=== PATIENT | male | born 1950 | race Caucasian/White ===

== ENCOUNTER 2019-01-19 17:45 | Inpatient (IN) | payer MEDICARE, OTHER ==
[~2019-01-19] VITALS: Ht 180.3 cm; Wt 82.2 kg
[~2019-01-19 17:45] MED LIST: ACET-2119 PO; ASPI-611 PO; ATOR40TA7 PO; BISA10SU11 RC; CHLO473M3 PO; DIPH25CA83 PO; DOCU-148 PO; DONE5TAB7 PO; EPOE20005 SQ; FINA5TAB11 PO; FLUT16SP2 BOTHNARES; FOLI1TAB16 PO; LACTC PO; LEVO75TA PO; LIDO700A47 TP; MELA3TAB64 PO; MIDO5TAB4 PO; SITA50TA PO; SULF1TAB48 PO
[2019-01-19 18:51] LABS: BASOPHILS # (AUTO) 0.1 X10'3 (0-0.2); BASOPHILS % (AUTO) 0.7 % (0-1); EOSINOPHILS # (AUTO) 0.2 X10'3 (0-0.9); EOSINOPHILS % (AUTO) 1.7 % (0-6); HEMATOCRIT 26.6 % (42.0-52.0); HEMOGLOBIN 8.8 g/dl (14.0-17.9); LYMPHOCYTES # (AUTO) 0.6 X10'3 (1.1-4.8); LYMPHOCYTES % (AUTO) 4.2 % (21-51); MEAN CORPUSCULAR HEMOGLOBIN 28.5 PG (27.0-31.0); MEAN CORPUSCULAR HGB CONC 33.1 g/dL (33.0-36.5); MEAN CORPUSCULAR VOLUME 86.2 FL (78-98); MONOCYTES # (AUTO) 0.2 X10'3 (0-0.9); MONOCYTES % (AUTO) 1.3 % (2-12); NEUTROPHILS # (AUTO) 12.5 X10'3 (1.8-7.7); NEUTROPHILS % (AUTO) 92.1 % (42-75); RED BLOOD COUNT 3.09 X10'6 (4.70-6.10); RED CELL DISTRIBUTION WIDTH 22.6 % (11.5-14.5); WHITE BLOOD COUNT 13.6 X10'3 (4.5-11.0)
[2019-01-19 18:55] LABS: ALANINE AMINOTRANSFERASE 9 U/L (12-78); ALBUMIN 3.1 G/DL (3.4-5.0); ALKALINE PHOSPHATASE 62 IU/L (46-116); ANION GAP 6 (8-16); ASPARTATE AMINO TRANSFERASE 8 U/L (10-37); BILIRUBIN,TOTAL 1.1 MG/DL (0.1-1.0); BLOOD UREA NITROGEN 24 MG/DL (7-18); BUN/CREATININE RATIO 7.9 (5.4-32.0); CALCIUM 8.9 MG/DL (8.5-10.1); CHLORIDE 96 MMOL/L (99-107); CREATININE 3.02 MG/DL (0.60-1.10); GLUCOSE 141 MG/DL (70-104); POTASSIUM 3.6 MMOL/L (3.5-5.1); SODIUM 133 MMOL/L (135-145); TOTAL CARBON DIOXIDE 31.3 MMOL/L (24-32); TOTAL PROTEIN 6.2 G/DL (6.4-8.2); eGFR 21 ML/MIN
[2019-01-19 19:41] LABS: CLARITY,URINE CLOUDY (Clear); COLOR,URINE AMBER (Yellow)
[2019-01-19 19:46] LABS: UA COLLECTION TYPE STRAIGHT CATH
[2019-01-19 19:59] LABS: AMORPHOUS URATES 1+; BACTERIA,URINE FEW /HPF (Neg); RBC,URINE 0-2 /HPF (0-2); SQUAMOUS EPITHELIAL CELL,UR MODERATE /LPF (FEW); YEAST FEW /HPF (NEGATIVE)
[2019-01-19 20:24] LABS: MEAN PLATELET VOLUME 8.4 FL (7.4-10.4); PLATELET COUNT 87 X10'3 (140-440)
[2019-01-19 20:26] LABS: ANISOCYTOSIS 3+; NUCLEATED RED BLOOD CELLS 1 /100WBC (0-0); TOTAL CELLS COUNTED 100
[2019-01-19 20:27] LABS: ELLIPTOCYTES 1+; PLATELET ESTIMATE DECREASED; POLYCHROMASIA FEW; TOXIC GRANULATION 1+
[2019-01-19] MEDS ORDERED: vancomycin/NS 1 GM ADD-VANTAGE 250 ML IV SCH (21:00)
[2019-01-19] MEDS ORDERED: piperacillin/tazo 3.375gm/50ml 50 ML IV SCH (21:00)
[2019-01-19] MEDS ORDERED: VANCOmycin 1250MG/NS 250ml Bag 250 ML IV SCH (21:00)
--- NOTE | 2019-01-19 22:28 | NUR ---
Received patient report from ER nurse Yaima KENDRICK. Will assume patient care.
[2019-01-19 23:34] VITALS: BP 90/46
[2019-01-19] MEDS: piperacillin/tazo 3.375gm/50ml 50 ML IV SCH (23:50)
[2019-01-20] MEDS: SITAGLIPTIN PO SCH ×2 (00:13→08:00)
[2019-01-20] MEDS: midodrine 5mg tablet PO SCH ×4 (00:39→23:16)
--- NOTE | 2019-01-20 00:40 | NUR ---
Patient's son Regino and in to see patient.
--- NOTE | 2019-01-20 01:00 | NUR ---
2 RN skin check completed tonight. Patient noted to have an open coccyx pressure sore, Pictures taken in chart. Patient has a gallbladder drainage bag on his right abd draining dark brown bile. Dressing is CDI.
[2019-01-20 02:00] VITALS: BP 90/45
--- NOTE | 2019-01-20 02:00 | NUR ---
Alexys Wayne notified of patient's significant cardiac history. Orders to place patient on Tele.
[2019-01-20] MEDS ORDERED: Melatonin 3mg tablet PO ONE (02:05)
[2019-01-20] MEDS ORDERED: glucagon, human recombinant 1mg kit SUBCUT PRN ×2 (02:05→18:15)
[2019-01-20] MEDS ORDERED: MESSAGE TO PHARMACY PO ONE (02:05)
[2019-01-20] MEDS ORDERED: dextrose 50%-water 50ml dispensing syringe IV PRN ×4 (02:05→18:15)
[2019-01-20] MEDS ORDERED: dextrose ORAL solution 15 GM/59 ML bottle PO PRN ×4 (02:05→18:15)
[2019-01-20 05:59] LABS: BASOPHILS # (AUTO) 0.1 X10'3 (0-0.2); BASOPHILS % (AUTO) 0.6 % (0-1); EOSINOPHILS # (AUTO) 0.2 X10'3 (0-0.9); EOSINOPHILS % (AUTO) 1.4 % (0-6); HEMATOCRIT 23.5 % (42.0-52.0); HEMOGLOBIN 7.9 g/dl (14.0-17.9); LYMPHOCYTES # (AUTO) 0.5 X10'3 (1.1-4.8); LYMPHOCYTES % (AUTO) 4.5 % (21-51); MEAN CORPUSCULAR HEMOGLOBIN 29.5 PG (27.0-31.0); MEAN CORPUSCULAR HGB CONC 33.9 g/dL (33.0-36.5); MEAN CORPUSCULAR VOLUME 87.1 FL (78-98); MEAN PLATELET VOLUME 8.4 FL (7.4-10.4); MONOCYTES # (AUTO) 0.1 X10'3 (0-0.9); MONOCYTES % (AUTO) 1.1 % (2-12); NEUTROPHILS % (AUTO) 92.4 % (42-75); PLATELET COUNT 72 X10'3 (140-440); RED BLOOD COUNT 2.69 X10'6 (4.70-6.10); RED CELL DISTRIBUTION WIDTH 22.9 % (11.5-14.5); WHITE BLOOD COUNT 10.9 X10'3 (4.5-11.0)
[2019-01-20 06:21] LABS: ALANINE AMINOTRANSFERASE 7 U/L (12-78); ALBUMIN 2.9 G/DL (3.4-5.0); ALKALINE PHOSPHATASE 60 IU/L (46-116); ANION GAP 11 (8-16); ASPARTATE AMINO TRANSFERASE 7 U/L (10-37); BILIRUBIN,TOTAL 0.9 MG/DL (0.1-1.0); BLOOD UREA NITROGEN 31 MG/DL (7-18); BUN/CREATININE RATIO 8.6 (5.4-32.0); CALCIUM 8.2 MG/DL (8.5-10.1); CHLORIDE 96 MMOL/L (99-107); CREATININE 3.59 MG/DL (0.60-1.10); GLUCOSE 133 MG/DL (70-104); MAGNESIUM 1.9 MG/DL (1.5-2.4); PHOSPHORUS 3.7 MG/DL (2.3-4.5); POTASSIUM 3.8 MMOL/L (3.5-5.1); SODIUM 135 MMOL/L (135-145); TOTAL CARBON DIOXIDE 27.8 MMOL/L (24-32); TOTAL PROTEIN 5.7 G/DL (6.4-8.2); eGFR 17 ML/MIN
[2019-01-20 07:00] VITALS: BP 91/50
[2019-01-20 07:11] LABS: TOTAL CELLS COUNTED 100
[2019-01-20 07:12] LABS: ANISOCYTOSIS 3+; PLATELET ESTIMATE DECREASED; POLYCHROMASIA FEW
[2019-01-20] MEDS: docusate sod 100mg capsule PO SCH ×2 (07:28→21:07)
[2019-01-20] MEDS: finasteride 5mg tablet PO SCH (07:28)
[2019-01-20] MEDS: levoTHYROXINE 75mcg tablet PO SCH (07:28)
[2019-01-20] MEDS: lactobacillus rhamnosus 10,000 MMU CELLS/CAPSULE PO SCH ×2 (07:29→21:07)
[2019-01-20] MEDS: folic acid 1mg tablet PO SCH (07:29)
[2019-01-20] MEDS: fluticasone nasal spray 16GM bottle NS SCH (08:00)
[2019-01-20] MEDS: chlorhexidine gluconate 15ml Cup****oral rinse MM SCH ×2 (08:00→20:00)
[2019-01-20] MEDS: LIDOcaine 5% patch TP SCH (08:00)
[2019-01-20] MEDS: aspirin 81mg tab.chew PO SCH (08:26)
[2019-01-20 11:00] VITALS: BP 87/46
[2019-01-20] MEDS: piperacillin/tazo 3.375gm/50ml 50 ML IV SCH ×2 (11:00→23:16)
[2019-01-20] MEDS: NUT.TX.IMP.RENAL FXN,LAC-REDUC (Nepro) 237 ML VANILLA PO SCH ×2 (13:00→18:00)
--- NOTE | 2019-01-20 14:58 | NUR ---
Malnutrition consult: Pt admit w/ elevated WBC hx ESRD on HD, CHF, PPM, T2DM. Pt/son seen by GRIFFIN; son is caregiver and reports pt has been in hospital in months w/ ~65# wt loss from original admit. Current wt is pt stated and son reports pt did have large fluid volume which was taken off when first in the hospital months ago; exact wt loss unknown. Pt has visible signs of muscle wasting to triceps and legs as well as severe weakness, BLE +2 edema. At this time pt qualifies for severe malnutrition; pt is agreeable to Nepro TIDWM; MD notified. Pt agrees to 2 hard boiled eggs, oatmeal, applesauce, and LS gravy at breakfasts; dietary notified of preferences. OK to send these items given pt protein needs on HD. PO 50-75% first meal today per RN. LBM 01/18. Will continue to monitor. Rec: 1. continue carb controlled/renal diet 2. nepro TIDWM 3. honor pt food preferences 4. wt w/ HD Addendum: 01/20/19 at [address] Amended: Links added.
[2019-01-20 15:00] VITALS: BP 83/44
--- NOTE | 2019-01-20 15:04 | NUR ---
Zosyn medication unavailable to administer at 01/20/19 1100. Pharmacy was notified twice. Still not available.
--- NOTE | 2019-01-20 18:12 | NUR ---
Patient in room PCU 3023. I have received report from Lu KENDRICK and had the opportunity to ask questions and assume patient care. Patient sitting at bedside with , finished dinner, will continue to monitor.
--- NOTE | 2019-01-20 18:38 | NUR ---
Orientee documentation: I have reviewed and agree with all interventions, assessments performed and documented by Anne KENDRICK. Orientee Medication Administration: For this medication-pass time frame, all medication were reviewed, dispensed, administered and documented per hospital policy by Anne KENDRICK
[2019-01-20 19:00] VITALS: BP 102/51
[2019-01-20] MEDS: insulin Lispro (HumaLOG) vial - multi-dose SQ SCH (19:05)
[2019-01-20] MEDS: insulin glargine (Lantus) pen - multi-dose SQ SCH (20:41)
[2019-01-20] MEDS: VANCOmycin 1250MG/NS 250ml Bag 250 ML IV SCH (21:08)
[2019-01-20] MEDS: donepezil 5mg tablet PO SCH (21:08)
[2019-01-20] MEDS: atorvastatin 20mg tablet PO SCH (21:09)
[2019-01-20] MEDS: Melatonin 3mg tablet PO SCH (21:10)
[2019-01-20 23:00] VITALS: BP 92/51
[2019-01-21 03:00] VITALS: BP 91/51
[2019-01-21 05:01] LABS: BASOPHILS # (AUTO) 0.1 X10'3 (0-0.2); BASOPHILS % (AUTO) 0.6 % (0-1); EOSINOPHILS # (AUTO) 0.2 X10'3 (0-0.9); EOSINOPHILS % (AUTO) 1.5 % (0-6); HEMATOCRIT 23.7 % (42.0-52.0); HEMOGLOBIN 7.9 g/dl (14.0-17.9); LYMPHOCYTES # (AUTO) 0.7 X10'3 (1.1-4.8); LYMPHOCYTES % (AUTO) 5.5 % (21-51); MEAN CORPUSCULAR HEMOGLOBIN 29.5 PG (27.0-31.0); MEAN CORPUSCULAR HGB CONC 33.5 g/dL (33.0-36.5); MEAN CORPUSCULAR VOLUME 88.1 FL (78-98); MEAN PLATELET VOLUME 8.3 FL (7.4-10.4); MONOCYTES # (AUTO) 0.2 X10'3 (0-0.9); MONOCYTES % (AUTO) 1.4 % (2-12); PLATELET COUNT 76 X10'3 (140-440); RED BLOOD COUNT 2.69 X10'6 (4.70-6.10); RED CELL DISTRIBUTION WIDTH 23.2 % (11.5-14.5); WHITE BLOOD COUNT 13.2 X10'3 (4.5-11.0)
[2019-01-21 05:26] LABS: ALBUMIN 2.9 G/DL (3.4-5.0); ALKALINE PHOSPHATASE 58 IU/L (46-116); ANION GAP 10 (8-16); ASPARTATE AMINO TRANSFERASE 7 U/L (10-37); BLOOD UREA NITROGEN 44 MG/DL (7-18); BUN/CREATININE RATIO 9.5 (5.4-32.0); CALCIUM 8.2 MG/DL (8.5-10.1); CHLORIDE 95 MMOL/L (99-107); CREATININE 4.63 MG/DL (0.60-1.10); GLUCOSE 147 MG/DL (70-104); MAGNESIUM 1.8 MG/DL (1.5-2.4); PHOSPHORUS 4.8 MG/DL (2.3-4.5); POTASSIUM 4.2 MMOL/L (3.5-5.1); SODIUM 133 MMOL/L (135-145); TOTAL CARBON DIOXIDE 27.6 MMOL/L (24-32); TOTAL PROTEIN 5.7 G/DL (6.4-8.2); eGFR 13 ML/MIN
[2019-01-21 05:28] LABS: ALANINE AMINOTRANSFERASE < 6 U/L (12-78)
[2019-01-21 06:00] VITALS: BP 99/50
--- NOTE | 2019-01-21 06:19 | NUR ---
Problems reprioritized. Patient report given, questions answered & plan of care reviewed with Fish KENDRICK. Patient resting eyes closed respirations even on back.
--- NOTE | 2019-01-21 06:24 | NUR ---
Patient in room PCU 3023. I have received report from AROLDO Hallman and had the opportunity to ask questions and assume patient care.
[2019-01-21] MEDS: chlorhexidine gluconate 15ml Cup****oral rinse MM SCH ×2 (07:34→18:51)
[2019-01-21] MEDS: fluticasone nasal spray 16GM bottle NS SCH (07:34)
[2019-01-21] MEDS: NUT.TX.IMP.RENAL FXN,LAC-REDUC (Nepro) 237 ML VANILLA PO SCH ×3 (07:35→18:51)
[2019-01-21] MEDS: LIDOcaine 5% patch TP SCH (07:35)
[2019-01-21] MEDS: finasteride 5mg tablet PO SCH (07:36)
[2019-01-21] MEDS: docusate sod 100mg capsule PO SCH ×2 (07:36→18:46)
[2019-01-21] MEDS: levoTHYROXINE 75mcg tablet PO SCH (07:36)
[2019-01-21] MEDS: lactobacillus rhamnosus 10,000 MMU CELLS/CAPSULE PO SCH ×2 (07:36→18:46)
[2019-01-21] MEDS: midodrine 5mg tablet PO SCH ×3 (07:36→23:53)
[2019-01-21] MEDS: folic acid 1mg tablet PO SCH (07:36)
[2019-01-21] MEDS: aspirin 81mg tab.chew PO SCH (07:36)
[2019-01-21] MEDS: linagliptin 5mg tablet PO SCH (07:43)
[2019-01-21] MEDS ORDERED: normal saline 1000ml 250 ML IV PRN (08:00)
[2019-01-21] MEDS ORDERED: heparin 1,000 units/ml 10ml inj HE ONE ×2 (08:00)
[2019-01-21] MEDS ORDERED: epoetin 20,000 units/ml inj IV ONE (08:00)
[2019-01-21] MEDS ORDERED: heparin 1,000unit/ml 10ml vial 10 ML IV ONE (08:00)
[2019-01-21] MEDS: insulin Lispro (HumaLOG) vial - multi-dose SQ SCH ×2 (08:21→13:33)
[2019-01-21 09:05] LABS: TOTAL CELLS COUNTED 100
[2019-01-21 09:09] LABS: ANISOCYTOSIS 3+; PLATELET ESTIMATE DECREASED
[2019-01-21 09:11] LABS: ELLIPTOCYTES FEW; POLYCHROMASIA FEW; SCHISTOCYTES FEW
[2019-01-21 11:00] VITALS: BP 92/49
[2019-01-21] MEDS: piperacillin/tazo 3.375gm/50ml 50 ML IV SCH ×2 (11:59→23:55)
--- NOTE | 2019-01-21 14:34 | NUR ---
Wound consult RE "ESRD, non-healing wounds": Pt only skin tears documented in WOC note w/ sacral PU d/c per WOC. Pt does have bruising during RD visit and is receiving Nepro w/ protein food options already taken and being sent by dietary. PO 100% meals at this time meeting protein needs on HD. Will continue to monitor. Addendum: 01/21/19 at [address] Amended: Links added.
[2019-01-21 15:00] VITALS: BP 89/50
[2019-01-21] MEDS: midodrine tablet 2.5 MG TABLET PO PRN (16:15)
[2019-01-21] MEDS: epoetin 20,000 units/ml inj SQ SCH (16:35)
--- NOTE | 2019-01-21 18:19 | NUR ---
Problems reprioritized. Patient report given, questions answered & plan of care reviewed with AROLDO Lucero.
[2019-01-21] MEDS: acetaminophen 325mg tablet PO PRN (18:43)
[2019-01-21 19:00] VITALS: BP 97/53
[2019-01-21] MEDS: VANCOmycin 1250MG/NS 250ml Bag 250 ML IV SCH (21:16)
[2019-01-21] MEDS: Melatonin 3mg tablet PO SCH (21:16)
[2019-01-21] MEDS: donepezil 5mg tablet PO SCH (21:17)
[2019-01-21] MEDS: atorvastatin 20mg tablet PO SCH (21:17)
[2019-01-21] MEDS: insulin glargine (Lantus) pen - multi-dose SQ SCH (21:30)
[2019-01-22] VITALS (8 sets, daily range): BP systolic 81–117; BP diastolic 42–54
--- NOTE | 2019-01-22 06:10 | NUR ---
Patient in room PCU 3023. I have received report from AROLDO Lucero and had the opportunity to ask questions and assume patient care.
--- NOTE | 2019-01-22 06:12 | NUR ---
Problems reprioritized. Patient report given, questions answered & plan of care reviewed with Fish. Addendum: 01/22/19 at 12 by Jazmine Aj RN Amended: Links added.
[2019-01-22 06:14] LABS: BASOPHILS # (AUTO) 0.1 X10'3 (0-0.2); BASOPHILS % (AUTO) 0.7 % (0-1); EOSINOPHILS # (AUTO) 0.2 X10'3 (0-0.9); EOSINOPHILS % (AUTO) 1.8 % (0-6); HEMATOCRIT 22.3 % (42.0-52.0); HEMOGLOBIN 7.5 g/dl (14.0-17.9); LYMPHOCYTES # (AUTO) 0.6 X10'3 (1.1-4.8); LYMPHOCYTES % (AUTO) 5.5 % (21-51); MEAN CORPUSCULAR HEMOGLOBIN 29.2 PG (27.0-31.0); MEAN CORPUSCULAR HGB CONC 33.5 g/dL (33.0-36.5); MEAN CORPUSCULAR VOLUME 87.2 FL (78-98); MEAN PLATELET VOLUME 8.5 FL (7.4-10.4); MONOCYTES # (AUTO) 0.1 X10'3 (0-0.9); MONOCYTES % (AUTO) 1.3 % (2-12); NEUTROPHILS # (AUTO) 9.4 X10'3 (1.8-7.7); NEUTROPHILS % (AUTO) 90.7 % (42-75); PLATELET COUNT 76 X10'3 (140-440); RED BLOOD COUNT 2.56 X10'6 (4.70-6.10); RED CELL DISTRIBUTION WIDTH 23.5 % (11.5-14.5); WHITE BLOOD COUNT 10.4 X10'3 (4.5-11.0)
[2019-01-22 06:43] LABS: ALANINE AMINOTRANSFERASE 9 U/L (12-78); ALKALINE PHOSPHATASE 62 IU/L (46-116); ANION GAP 9 (8-16); ASPARTATE AMINO TRANSFERASE 11 U/L (10-37); BILIRUBIN,TOTAL 0.9 MG/DL (0.1-1.0); BLOOD UREA NITROGEN 32 MG/DL (7-18); BUN/CREATININE RATIO 9.2 (5.4-32.0); CALCIUM 8.3 MG/DL (8.5-10.1); CHLORIDE 98 MMOL/L (99-107); CREATININE 3.46 MG/DL (0.60-1.10); GLUCOSE 156 MG/DL (70-104); MAGNESIUM 1.9 MG/DL (1.5-2.4); PHOSPHORUS 3.7 MG/DL (2.3-4.5); POTASSIUM 4.2 MMOL/L (3.5-5.1); SODIUM 134 MMOL/L (135-145); TOTAL CARBON DIOXIDE 26.6 MMOL/L (24-32); TOTAL PROTEIN 5.9 G/DL (6.4-8.2); eGFR 18 ML/MIN
[2019-01-22] MEDS: chlorhexidine gluconate 15ml Cup****oral rinse MM SCH ×2 (07:04→19:38)
[2019-01-22] MEDS: fluticasone nasal spray 16GM bottle NS SCH (07:04)
[2019-01-22] MEDS: LIDOcaine 5% patch TP SCH (07:05)
[2019-01-22] MEDS: finasteride 5mg tablet PO SCH (07:07)
[2019-01-22] MEDS: levoTHYROXINE 75mcg tablet PO SCH (07:07)
[2019-01-22] MEDS: lactobacillus rhamnosus 10,000 MMU CELLS/CAPSULE PO SCH ×2 (07:07→19:33)
[2019-01-22] MEDS: midodrine 5mg tablet PO SCH ×3 (07:07→21:34)
[2019-01-22] MEDS: folic acid 1mg tablet PO SCH (07:07)
[2019-01-22] MEDS: docusate sod 100mg capsule PO SCH ×2 (07:07→19:33)
[2019-01-22] MEDS: linagliptin 5mg tablet PO SCH (07:07)
[2019-01-22] MEDS: NUT.TX.IMP.RENAL FXN,LAC-REDUC (Nepro) 237 ML VANILLA PO SCH ×3 (07:10→17:42)
[2019-01-22 07:30] LABS: ANISOCYTOSIS 3+; ELLIPTOCYTES 1+; NUCLEATED RED BLOOD CELLS 2 /100WBC (0-0); PLATELET ESTIMATE DECREASED; POLYCHROMASIA FEW; SCHISTOCYTES FEW; TOTAL CELLS COUNTED 100
[2019-01-22] MEDS: aspirin 81mg tab.chew PO SCH (08:20)
[2019-01-22] MEDS: bisacodyl 10mg suppository rectal RC PRN (08:21)
[2019-01-22] MEDS: insulin Lispro (HumaLOG) vial - multi-dose SQ SCH ×3 (08:34→19:31)
[2019-01-22] MEDS: epoetin 20,000 units/ml inj SQ SCH (10:00)
[2019-01-22] MEDS: piperacillin/tazo 3.375gm/50ml 50 ML IV SCH ×2 (11:03→22:29)
[2019-01-22] MEDS ORDERED: midodrine tablet 2.5 MG TABLET PO ONE (16:20)
[2019-01-22] MEDS ORDERED: lactulose 20gm/30ml cup PO ONE (17:35)
--- NOTE | 2019-01-22 18:22 | NUR ---
Problems reprioritized. Patient report given, questions answered & plan of care reviewed with AROLDO Pardo.
--- NOTE | 2019-01-22 18:24 | NUR ---
Patient in room U 3023. I have received report from AROLDO Whitten and had the opportunity to ask questions and assume patient care. Addendum: 01/22/19 at 1833 by Leanne Joseph RN Amended: Links added.
[2019-01-22] MEDS ORDERED: VANCOMYCIN LEVEL IV ONE (20:30)
--- NOTE | 2019-01-22 21:30 | NUR ---
Pt refuses st cath or baldder scan, denies need to urinate. states will notify nursing if needs. Addendum: 01/23/19 at 0024 by Leanne Joseph RN Amended: Links added.
[2019-01-22] MEDS: Melatonin 3mg tablet PO SCH (21:33)
[2019-01-22] MEDS: atorvastatin 20mg tablet PO SCH (21:34)
[2019-01-22] MEDS: donepezil 5mg tablet PO SCH (21:34)
[2019-01-22] MEDS: VANCOmycin 1250MG/NS 250ml Bag 250 ML IV SCH ×2 (21:35→22:29)
[2019-01-22] MEDS: acetaminophen 325mg tablet PO PRN (21:35)
[2019-01-22] MEDS: insulin glargine (Lantus) pen - multi-dose SQ SCH (22:27)
[2019-01-23] VITALS (9 sets, daily range): BP systolic 85–101; BP diastolic 44–55
--- NOTE | 2019-01-23 03:27 | NUR ---
no void no desire. pt states does not need to get blader scanned. states he knows if he needs to be cathed. declines to have bladder scanned. Addendum: 01/23/19 at 0328 by Leanne Joseph RN Amended: Links added.
[2019-01-23 05:34] LABS: ALANINE AMINOTRANSFERASE 7 U/L (12-78); ALKALINE PHOSPHATASE 58 IU/L (46-116); ANION GAP 12 (8-16); ASPARTATE AMINO TRANSFERASE 8 U/L (10-37); BILIRUBIN,TOTAL 0.9 MG/DL (0.1-1.0); BLOOD UREA NITROGEN 46 MG/DL (7-18); CALCIUM 8.7 MG/DL (8.5-10.1); CHLORIDE 94 MMOL/L (99-107); CREATININE 4.61 MG/DL (0.60-1.10); GLUCOSE 106 MG/DL (70-104); PHOSPHORUS 4.9 MG/DL (2.3-4.5); POTASSIUM 4.8 MMOL/L (3.5-5.1); SODIUM 133 MMOL/L (135-145); TOTAL CARBON DIOXIDE 26.7 MMOL/L (24-32); eGFR 13 ML/MIN
[2019-01-23 05:44] LABS: BASOPHILS # (AUTO) 0.1 X10'3 (0-0.2); BASOPHILS % (AUTO) 0.9 % (0-1); EOSINOPHILS # (AUTO) 0.2 X10'3 (0-0.9); EOSINOPHILS % (AUTO) 2.1 % (0-6); HEMATOCRIT 23.9 % (42.0-52.0); HEMOGLOBIN 7.9 g/dl (14.0-17.9); LYMPHOCYTES # (AUTO) 0.7 X10'3 (1.1-4.8); LYMPHOCYTES % (AUTO) 6.1 % (21-51); MEAN CORPUSCULAR HEMOGLOBIN 29.2 PG (27.0-31.0); MEAN CORPUSCULAR HGB CONC 33.1 g/dL (33.0-36.5); MEAN CORPUSCULAR VOLUME 88.4 FL (78-98); MEAN PLATELET VOLUME 8.4 FL (7.4-10.4); MONOCYTES # (AUTO) 0.2 X10'3 (0-0.9); MONOCYTES % (AUTO) 1.9 % (2-12); PLATELET COUNT 85 X10'3 (140-440); RED CELL DISTRIBUTION WIDTH 22.9 % (11.5-14.5); WHITE BLOOD COUNT 11.2 X10'3 (4.5-11.0)
--- NOTE | 2019-01-23 06:12 | NUR ---
Patient in room PCU 3023. I have received report from AROLDO Pardo and had the opportunity to ask questions and assume patient care.
--- NOTE | 2019-01-23 06:17 | NUR ---
Problems reprioritized. Patient report given, questions answered & plan of care reviewed with AROLDO Whitten. Addendum: 01/23/19 at 0617 by Leanne Joseph RN Amended: Links added.
[2019-01-23] MEDS: fluticasone nasal spray 16GM bottle NS SCH (07:04)
[2019-01-23] MEDS: chlorhexidine gluconate 15ml Cup****oral rinse MM SCH ×2 (07:04→20:00)
[2019-01-23] MEDS: NUT.TX.IMP.RENAL FXN,LAC-REDUC (Nepro) 237 ML VANILLA PO SCH ×3 (07:05→18:00)
[2019-01-23] MEDS: LIDOcaine 5% patch TP SCH (07:05)
[2019-01-23] MEDS: levoTHYROXINE 75mcg tablet PO SCH (07:33)
[2019-01-23] MEDS: aspirin 81mg tab.chew PO SCH (07:33)
[2019-01-23] MEDS: folic acid 1mg tablet PO SCH (07:33)
[2019-01-23] MEDS: finasteride 5mg tablet PO SCH (07:33)
[2019-01-23] MEDS: lactobacillus rhamnosus 10,000 MMU CELLS/CAPSULE PO SCH ×2 (07:33→20:22)
[2019-01-23] MEDS: linagliptin 5mg tablet PO SCH (07:33)
[2019-01-23] MEDS: midodrine 5mg tablet PO SCH ×3 (07:33→20:23)
[2019-01-23] MEDS: docusate sod 100mg capsule PO SCH ×2 (07:33→20:22)
[2019-01-23] MEDS ORDERED: normal saline 1000ml 250 ML IV PRN (08:00)
[2019-01-23] MEDS ORDERED: epoetin 20,000 units/ml inj IV ONE (08:00)
[2019-01-23] MEDS ORDERED: heparin 1,000unit/ml 10ml vial 10 ML IV ONE (08:00)
[2019-01-23] MEDS ORDERED: albumin (human) 25% 100ml IV 100 ML IV PRN (08:00)
[2019-01-23] MEDS ORDERED: heparin 1,000 units/ml 10ml inj HE ONE ×2 (08:00)
[2019-01-23] MEDS: insulin Lispro (HumaLOG) vial - multi-dose SQ SCH ×2 (08:10→18:43)
[2019-01-23 08:25] LABS: ANISOCYTOSIS 3+; ELLIPTOCYTES 1+; PLATELET ESTIMATE DECREASED; POLYCHROMASIA 1+
[2019-01-23 08:26] LABS: SCHISTOCYTES 1+
[2019-01-23] MEDS: midodrine tablet 2.5 MG TABLET PO PRN (09:31)
[2019-01-23] MEDS: piperacillin/tazo 3.375gm/50ml 50 ML IV SCH ×2 (14:10→23:17)
--- NOTE | 2019-01-23 15:32 | NUR ---
Reassessment: Pt PO 75-100% meals meeting needs on HD; receiving prior food preferences. LBM 01/22. RD provided pt written/verbal malnutrition ed w/ protein supplement recommendations for at home review. Will continue to monitor. Rec: 1. continue carb controlled/renal diet 2. nepro TIDWM 3. honor pt food preferences 4. wt w/ HD Addendum: 01/23/19 at [address] Amended: Links added.
--- NOTE | 2019-01-23 18:27 | NUR ---
Problems reprioritized. Patient report given, questions answered & plan of care reviewed with AROLDO Finley.
[2019-01-23] MEDS: donepezil 5mg tablet PO SCH (20:22)
[2019-01-23] MEDS: Melatonin 3mg tablet PO SCH (20:23)
[2019-01-23] MEDS: atorvastatin 20mg tablet PO SCH (20:23)
[2019-01-23] MEDS ORDERED: VANCOmycin 1250MG/NS 250ml Bag 250 ML IV SCH (21:00)
[2019-01-23] MEDS: insulin glargine (Lantus) pen - multi-dose SQ SCH (21:22)
[2019-01-24 03:00] VITALS: BP 90/50
[2019-01-24] MEDS: bisacodyl 10mg suppository rectal RC PRN (04:44)
[2019-01-24 05:49] LABS: BASOPHILS # (AUTO) 0.1 X10'3 (0-0.2); BASOPHILS % (AUTO) 0.8 % (0-1); EOSINOPHILS # (AUTO) 0.2 X10'3 (0-0.9); EOSINOPHILS % (AUTO) 2.2 % (0-6); HEMATOCRIT 27.1 % (42.0-52.0); HEMOGLOBIN 9.1 g/dl (14.0-17.9); LYMPHOCYTES # (AUTO) 0.7 X10'3 (1.1-4.8); LYMPHOCYTES % (AUTO) 6.3 % (21-51); MEAN CORPUSCULAR HEMOGLOBIN 29.6 PG (27.0-31.0); MEAN CORPUSCULAR HGB CONC 33.4 g/dL (33.0-36.5); MEAN CORPUSCULAR VOLUME 88.6 FL (78-98); MEAN PLATELET VOLUME 8.5 FL (7.4-10.4); MONOCYTES # (AUTO) 0.2 X10'3 (0-0.9); MONOCYTES % (AUTO) 2.1 % (2-12); NEUTROPHILS # (AUTO) 9.8 X10'3 (1.8-7.7); NEUTROPHILS % (AUTO) 88.6 % (42-75); PLATELET COUNT 87 X10'3 (140-440); RED BLOOD COUNT 3.06 X10'6 (4.70-6.10); RED CELL DISTRIBUTION WIDTH 22.6 % (11.5-14.5)
[2019-01-24 05:51] LABS: ALANINE AMINOTRANSFERASE 8 U/L (12-78); ALBUMIN 2.9 G/DL (3.4-5.0); ALKALINE PHOSPHATASE 68 IU/L (46-116); ANION GAP 13 (8-16); ASPARTATE AMINO TRANSFERASE 8 U/L (10-37); BILIRUBIN,TOTAL 0.8 MG/DL (0.1-1.0); BLOOD UREA NITROGEN 37 MG/DL (7-18); BUN/CREATININE RATIO 10.3 (5.4-32.0); CALCIUM 7.8 MG/DL (8.5-10.1); CHLORIDE 96 MMOL/L (99-107); CREATININE 3.59 MG/DL (0.60-1.10); GLUCOSE 154 MG/DL (70-104); PHOSPHORUS 4.1 MG/DL (2.3-4.5); POTASSIUM 3.8 MMOL/L (3.5-5.1); SODIUM 135 MMOL/L (135-145); TOTAL CARBON DIOXIDE 26.3 MMOL/L (24-32); TOTAL PROTEIN 5.9 G/DL (6.4-8.2); eGFR 17 ML/MIN
[2019-01-24 06:00] VITALS: BP 95/45
--- NOTE | 2019-01-24 06:00 | NUR ---
Patient in room PCU 3023. I have received report from Tushar KENDRICK and had the opportunity to ask questions and assume patient care.
[2019-01-24 07:21] LABS: ANISOCYTOSIS 3+; NUCLEATED RED BLOOD CELLS 1 /100WBC (0-0); PLATELET ESTIMATE DECREASED; TOTAL CELLS COUNTED 100
[2019-01-24 07:22] LABS: ELLIPTOCYTES 1+; POIKILOCYTOSIS 1+; POLYCHROMASIA 1+
[2019-01-24] MEDS: chlorhexidine gluconate 15ml Cup****oral rinse MM SCH ×2 (08:00→20:00)
[2019-01-24] MEDS: NUT.TX.IMP.RENAL FXN,LAC-REDUC (Nepro) 237 ML VANILLA PO SCH ×3 (08:00→18:00)
[2019-01-24] MEDS: LIDOcaine 5% patch TP SCH (08:00)
[2019-01-24] MEDS: fluticasone nasal spray 16GM bottle NS SCH (08:00)
--- NOTE | 2019-01-24 08:00 | NUR ---
patient declined daily weight
[2019-01-24] MEDS: insulin Lispro (HumaLOG) vial - multi-dose SQ SCH ×3 (08:17→20:00)
[2019-01-24] MEDS: levoTHYROXINE 75mcg tablet PO SCH (08:18)
[2019-01-24] MEDS: midodrine 5mg tablet PO SCH ×3 (08:18→21:31)
[2019-01-24] MEDS: linagliptin 5mg tablet PO SCH (08:19)
[2019-01-24] MEDS: folic acid 1mg tablet PO SCH (08:19)
[2019-01-24] MEDS: lactobacillus rhamnosus 10,000 MMU CELLS/CAPSULE PO SCH ×2 (08:19→19:52)
[2019-01-24] MEDS: docusate sod 100mg capsule PO SCH ×2 (08:19→19:55)
[2019-01-24] MEDS: finasteride 5mg tablet PO SCH (08:20)
[2019-01-24] MEDS: aspirin 81mg tab.chew PO SCH (08:20)
[2019-01-24 11:00] VITALS: BP 93/44
[2019-01-24] MEDS: piperacillin/tazo 3.375gm/50ml 50 ML IV SCH ×2 (12:20→22:33)
--- NOTE | 2019-01-24 14:49 | NUR ---
bladder scanned pt per primary RN request. 465ml when bladder scanned. AROLDO Siddiqui notified. pt is also requesting something for pain before straight cath and c/o "butt pain" AROLDO Siddiqui aware.
[2019-01-24] MEDS ORDERED: LIDOcaine 2% 10ml TOPICAL JELLY (Urojet) MM PRN (14:55)
[2019-01-24] MEDS ORDERED: morphine 2 MG/ML inj. syringe IV ONE (14:55)
[2019-01-24 15:00] VITALS: BP 90/47
--- NOTE | 2019-01-24 16:00 | NUR ---
1600-straight cath done due to 460ml showing on bladder scan. Pt denies discomfort and did not have bladder distention. Received 10ml dark brown urine and sent to lab at provider request. Left catheter in and attached to drainage bag to see if he could stand and urine would drain. No drainage output. Notified Frances Torres PA-C and received orders to flush and pull back with sterile water to flush bladder. Performed flush and pull back on syringe and received back only what was flushed in.Notified Frances Torres PA-C of results and she put order in for abdominal ultrasound. Catheter removed and the bladder was empty per ultrasound and original order was for straight cath only.
[2019-01-24 17:23] LABS: CLARITY,URINE TURBID (Clear); COLOR,URINE BROWN (Yellow); UA COLLECTION TYPE STRAIGHT CATH
[2019-01-24 17:34] LABS: BACTERIA,URINE FEW /HPF (Neg); MUCUS STRANDS NONE SEEN /LPF (Neg); SQUAMOUS EPITHELIAL CELL,UR FEW /LPF (FEW); TRANSITIONAL EPI CELLS,URINE FEW /HPF
[2019-01-24 17:35] LABS: AMORPHOUS URATES 2+; YEAST MANY /HPF (NEGATIVE)
--- NOTE | 2019-01-24 18:30 | NUR ---
Problems reprioritized. Patient report given, questions answered & plan of care reviewed with Lady KENDRICK.
[2019-01-24 19:00] VITALS: BP 99/50
--- NOTE | 2019-01-24 19:24 | NUR ---
Patient in room PCU 3023. I have received report from Chen KENDRICK and had the opportunity to ask questions and assume patient care. Checked on patient, he is resting, will continue to monitor.
[2019-01-24] MEDS: atorvastatin 20mg tablet PO SCH (21:31)
[2019-01-24] MEDS: Melatonin 3mg tablet PO SCH (21:32)
[2019-01-24] MEDS: donepezil 5mg tablet PO SCH (21:32)
[2019-01-24] MEDS: HYDROcodone/acetaminophen 5mg/325mg tablet PO PRN (21:35)
[2019-01-24] MEDS: insulin glargine (Lantus) pen - multi-dose SQ SCH (21:38)
[2019-01-24 23:00] VITALS: BP 99/53
[2019-01-25 03:00] VITALS: BP 102/50
[2019-01-25 06:00] VITALS: BP 104/52
--- NOTE | 2019-01-25 07:01 | NUR ---
Problems reprioritized. Patient report given, questions answered & plan of care reviewed with Brandin KENDRICK and Elaina KENDRICK.
--- NOTE | 2019-01-25 07:05 | NUR ---
Patient in room PCU 3023. I have received report from AROLDO HENDERSON and had the opportunity to ask questions and assume patient care.
[2019-01-25] MEDS: fluticasone nasal spray 16GM bottle NS SCH (08:00)
[2019-01-25] MEDS: chlorhexidine gluconate 15ml Cup****oral rinse MM SCH ×2 (08:00→20:00)
[2019-01-25] MEDS: LIDOcaine 5% patch TP SCH (08:00)
--- NOTE | 2019-01-25 08:00 | NUR ---
REFUSED DAILY WEIGHT.
[2019-01-25] MEDS: folic acid 1mg tablet PO SCH (08:23)
[2019-01-25] MEDS: docusate sod 100mg capsule PO SCH ×2 (08:23→21:25)
[2019-01-25] MEDS: lactobacillus rhamnosus 10,000 MMU CELLS/CAPSULE PO SCH ×2 (08:23→21:26)
[2019-01-25] MEDS: NUT.TX.IMP.RENAL FXN,LAC-REDUC (Nepro) 237 ML VANILLA PO SCH ×3 (08:24→18:49)
[2019-01-25] MEDS: midodrine 5mg tablet PO SCH ×3 (08:24→21:25)
[2019-01-25] MEDS: levoTHYROXINE 75mcg tablet PO SCH (08:25)
[2019-01-25] MEDS: finasteride 5mg tablet PO SCH (08:25)
[2019-01-25] MEDS: linagliptin 5mg tablet PO SCH (08:25)
[2019-01-25] MEDS: aspirin 81mg tab.chew PO SCH (08:26)
[2019-01-25] MEDS: insulin Lispro (HumaLOG) vial - multi-dose SQ SCH ×3 (08:31→18:58)
--- NOTE | 2019-01-25 10:49 | NUR ---
PRESSURE ULCER EDUCATION: DEFINITION: A pressure ulcer is an area of skin that breaks down when you stay in one position too long. The constant pressure against the skin reduces the blood flow to that area and the affected tissue dies. CAUSES: "Being bedridden or in a wheelchair "Fragile skin "Having a chronic condition, such as diabetes or vascular disease "Inability to move certain parts of your body without assistance "Older age "Incontinence of urine or stool SYMPTOMS: "A reddened area that DOES NOT turn white when pressed on - this can be the beginning of a pressure ulcer "A blister, deep sore or a crater - these can be advanced pressure ulcers FIRST AID: "Relieve the pressure on this area "Keep the area clean and dry "Call your primary doctor if you see any of the above symptoms "DO NOT massage the area "DO NOT use a donut shaped or ring shaped pillow- these actually interfere with the blood flow and cause complications PREVENTION: "Check for pressure ulcers everyday "Change position at least every two hours to relieve pressure "Use items that help relieve pressure- pillows, sheepskin, foam padding, and powders. "Keep skin clean and dry "Eat healthy well balanced meals "Exercise daily IF YOU SEE ANY OF THESE SYMPTOMS WHILE IN THE HOSPITAL - TELL YOUR NURSE IMMEDIATELY. IF YOU SEE ANY OF THESE SYMPTOMS WHILE AT HOME OR HAVE ANY QUESTIONS OR CONCERNS ABOUT PRESSURE ULCERS - CALL YOUR PRIMARY DOCTOR IMMEDIATELY. Addendum: 01/25/19 at 1050 by Mey Vaughan RN Amended: Links added.
[2019-01-25 11:00] VITALS: BP 97/56
[2019-01-25] MEDS: piperacillin/tazo 3.375gm/50ml 50 ML IV SCH ×2 (11:00→22:29)
--- NOTE | 2019-01-25 18:38 | NUR ---
Problems reprioritized. Patient report given, questions answered & plan of care reviewed with AROLDO MAI.
--- NOTE | 2019-01-25 18:39 | NUR ---
RECORDS MANAGEMENT ASSISTANTgeneral ledger accountant: I have reviewed and agree with all interventions, assessments performed and documented by AROLDO DEAN.
--- NOTE | 2019-01-25 18:40 | NUR ---
Patient in room PCU 3023. I have received report from Brandin KENDRICK and had the opportunity to ask questions and assume patient care.
[2019-01-25 19:00] VITALS: BP 112/52
[2019-01-25] MEDS: Melatonin 3mg tablet PO SCH (21:26)
[2019-01-25] MEDS: donepezil 5mg tablet PO SCH (21:26)
[2019-01-25] MEDS: atorvastatin 20mg tablet PO SCH (21:26)
[2019-01-25] MEDS: insulin glargine (Lantus) pen - multi-dose SQ SCH (21:39)
[2019-01-25] MEDS: HYDROcodone/acetaminophen 5mg/325mg tablet PO PRN (21:43)
--- NOTE | 2019-01-25 22:00 | NUR ---
Pt refused his chlorhexidine gluconate mouth wash. He states that he was using it when he was getting chemotherapy. He no longer needs this medication.
[2019-01-25 23:00] VITALS: BP 100/51
[2019-01-26 03:00] VITALS: BP 91/49
--- NOTE | 2019-01-26 06:23 | NUR ---
Problems reprioritized. Patient report given, questions answered & plan of care reviewed with Brandin RN.
--- NOTE | 2019-01-26 06:30 | NUR ---
Patient in room PCU 3023. I have received report from AROLDO MAI and had the opportunity to ask questions and assume patient care.
[2019-01-26 07:00] VITALS: BP 90/57
[2019-01-26 07:16] LABS: HEMOGLOBIN 9.5 g/dl (14.0-17.9); MEAN CORPUSCULAR HEMOGLOBIN 29.2 PG (27.0-31.0); MEAN CORPUSCULAR HGB CONC 32.7 g/dL (33.0-36.5); MEAN CORPUSCULAR VOLUME 89.1 FL (78-98); MEAN PLATELET VOLUME 8.6 FL (7.4-10.4); PLATELET COUNT 90 X10'3 (140-440); RED BLOOD COUNT 3.26 X10'6 (4.70-6.10); RED CELL DISTRIBUTION WIDTH 23.1 % (11.5-14.5); WHITE BLOOD COUNT 14.2 X10'3 (4.5-11.0)
[2019-01-26] MEDS ORDERED: epoetin 20,000 units/ml inj IV ONE ×2 (08:00→14:20)
[2019-01-26] MEDS: chlorhexidine gluconate 15ml Cup****oral rinse MM SCH ×2 (08:00→20:00)
[2019-01-26] MEDS: fluticasone nasal spray 16GM bottle NS SCH (08:00)
[2019-01-26] MEDS ORDERED: heparin 1,000unit/ml 10ml vial 10 ML IV ONE (08:00)
[2019-01-26] MEDS: LIDOcaine 5% patch TP SCH (08:00)
[2019-01-26] MEDS ORDERED: heparin 1,000 units/ml 10ml inj HE ONE ×2 (08:00)
[2019-01-26] MEDS: docusate sod 100mg capsule PO SCH ×2 (08:04→20:33)
[2019-01-26] MEDS: folic acid 1mg tablet PO SCH (08:04)
[2019-01-26] MEDS: lactobacillus rhamnosus 10,000 MMU CELLS/CAPSULE PO SCH ×2 (08:04→20:33)
[2019-01-26] MEDS: midodrine 5mg tablet PO SCH ×3 (08:05→20:32)
[2019-01-26] MEDS: NUT.TX.IMP.RENAL FXN,LAC-REDUC (Nepro) 237 ML VANILLA PO SCH ×3 (08:05→18:00)
[2019-01-26] MEDS: finasteride 5mg tablet PO SCH (08:05)
[2019-01-26] MEDS: linagliptin 5mg tablet PO SCH (08:06)
[2019-01-26] MEDS: levoTHYROXINE 75mcg tablet PO SCH (08:06)
[2019-01-26] MEDS: aspirin 81mg tab.chew PO SCH (08:07)
[2019-01-26] MEDS: insulin Lispro (HumaLOG) vial - multi-dose SQ SCH ×3 (08:10→20:11)
[2019-01-26] MEDS: epoetin 20,000 units/ml inj SQ SCH (09:00)
[2019-01-26 11:00] VITALS: BP 91/53
[2019-01-26] MEDS: piperacillin/tazo 3.375gm/50ml 50 ML IV SCH ×2 (11:17→22:35)
--- NOTE | 2019-01-26 11:24 | NUR ---
PRESSURE ULCER EDUCATION: DEFINITION: A pressure ulcer is an area of skin that breaks down when you stay in one position too long. The constant pressure against the skin reduces the blood flow to that area and the affected tissue dies. CAUSES: "Being bedridden or in a wheelchair "Fragile skin "Having a chronic condition, such as diabetes or vascular disease "Inability to move certain parts of your body without assistance "Older age "Incontinence of urine or stool SYMPTOMS: "A reddened area that DOES NOT turn white when pressed on - this can be the beginning of a pressure ulcer "A blister, deep sore or a crater - these can be advanced pressure ulcers FIRST AID: "Relieve the pressure on this area "Keep the area clean and dry "Call your primary doctor if you see any of the above symptoms "DO NOT massage the area "DO NOT use a donut shaped or ring shaped pillow- these actually interfere with the blood flow and cause complications PREVENTION: "Check for pressure ulcers everyday "Change position at least every two hours to relieve pressure "Use items that help relieve pressure- pillows, sheepskin, foam padding, and powders. "Keep skin clean and dry "Eat healthy well balanced meals "Exercise daily IF YOU SEE ANY OF THESE SYMPTOMS WHILE IN THE HOSPITAL - TELL YOUR NURSE IMMEDIATELY. IF YOU SEE ANY OF THESE SYMPTOMS WHILE AT HOME OR HAVE ANY QUESTIONS OR CONCERNS ABOUT PRESSURE ULCERS - CALL YOUR PRIMARY DOCTOR IMMEDIATELY. WOUND INFECTION EDUCATION PROVIDED BY WOUND CARE 1. Patient instructed to call their primary doctor, or go the ED immediately if any of the following symptoms occur: * Increased pain in wound * Increase in drainage from the wound * Redness in the skin surrounding the wound * Warmth in the skin surrounding the wound * Bleeding from the wound * Temperature of 101 or greater 2. If any of these occur while in the hospital tell a nurse immediately. Addendum: 01/26/19 at 1124 by Mey Vaughan RN Amended: Links added.
[2019-01-26] MEDS: midodrine tablet 2.5 MG TABLET PO PRN (14:08)
--- NOTE | 2019-01-26 14:43 | NUR ---
Problems reprioritized and outcomes updated.
[2019-01-26 15:00] VITALS: BP 93/52
[2019-01-26] MEDS: acetaminophen 325mg tablet PO PRN (15:08)
--- NOTE | 2019-01-26 18:35 | NUR ---
Patient in room PCU 3023. I have received report from Jeanie and had the opportunity to ask questions and assume patient care.
--- NOTE | 2019-01-26 18:41 | NUR ---
NEW HIRE senior oracle pl sql developer: I have reviewed and agree with all interventions, assessments performed and documented by AROLDO TURPIN.
--- NOTE | 2019-01-26 18:41 | NUR ---
Problems reprioritized. Patient report given, questions answered & plan of care reviewed with EN. TORI
[2019-01-26 19:00] VITALS: BP 91/51
--- NOTE | 2019-01-26 19:58 | NUR ---
patient's tegaderm on the left thumb and right arm were falling off. didn't clean, just replaced.
--- NOTE | 2019-01-26 20:12 | NUR ---
Late medication administration: Pt just finished eating his meal tray. He consumed 100% totaling 98 carbs. He was covered with 12 units of regular insulin.
[2019-01-26] MEDS: atorvastatin 20mg tablet PO SCH (20:32)
[2019-01-26] MEDS: donepezil 5mg tablet PO SCH (20:32)
[2019-01-26] MEDS: HYDROcodone/acetaminophen 5mg/325mg tablet PO PRN (20:32)
[2019-01-26] MEDS: Melatonin 3mg tablet PO SCH (20:33)
[2019-01-26] MEDS: insulin glargine (Lantus) pen - multi-dose SQ SCH (21:58)
[2019-01-26 23:00] VITALS: BP 95/52
[2019-01-27] VITALS (7 sets, daily range): BP systolic 85–102; BP diastolic 48–58
[2019-01-27] MEDS: HYDROcodone/acetaminophen 5mg/325mg tablet PO PRN ×2 (01:57→22:26)
--- NOTE | 2019-01-27 06:21 | NUR ---
Problems reprioritized. Patient report given, questions answered & plan of care reviewed with Jeanie.
--- NOTE | 2019-01-27 06:28 | NUR ---
Patient in room PCU 3023. I have received report from AROLDO VALLE and had the opportunity to ask questions and assume patient care.
[2019-01-27] MEDS: LIDOcaine 5% patch TP SCH (08:00)
[2019-01-27] MEDS: NUT.TX.IMP.RENAL FXN,LAC-REDUC (Nepro) 237 ML VANILLA PO SCH ×3 (08:00→18:00)
[2019-01-27] MEDS: fluticasone nasal spray 16GM bottle NS SCH (08:00)
[2019-01-27] MEDS: docusate sod 100mg capsule PO SCH ×2 (08:00→22:27)
[2019-01-27] MEDS: chlorhexidine gluconate 15ml Cup****oral rinse MM SCH ×2 (08:00→20:00)
--- NOTE | 2019-01-27 08:58 | NUR ---
DR CARDENAS NOTIFIED OF 11 BEAT RUN VT. ASX, 93/51, HR 82, 02 SAT 94% ON 2L/NC. STAT RENAL PANEL AND CBC ORDERED.
[2019-01-27] MEDS: midodrine 5mg tablet PO SCH ×3 (09:01→22:27)
[2019-01-27] MEDS: lactobacillus rhamnosus 10,000 MMU CELLS/CAPSULE PO SCH ×2 (09:01→22:27)
[2019-01-27] MEDS: folic acid 1mg tablet PO SCH (09:01)
[2019-01-27] MEDS: levoTHYROXINE 75mcg tablet PO SCH (09:02)
[2019-01-27] MEDS: finasteride 5mg tablet PO SCH (09:02)
[2019-01-27] MEDS: linagliptin 5mg tablet PO SCH (09:02)
[2019-01-27] MEDS: aspirin 81mg tab.chew PO SCH (09:03)
[2019-01-27] MEDS: insulin Lispro (HumaLOG) vial - multi-dose SQ SCH ×3 (09:13→18:58)
[2019-01-27 09:30] LABS: BASOPHILS # (AUTO) 0.1 X10'3 (0-0.2); BASOPHILS % (AUTO) 0.9 % (0-1); EOSINOPHILS # (AUTO) 0.3 X10'3 (0-0.9); EOSINOPHILS % (AUTO) 2.4 % (0-6); HEMATOCRIT 28.3 % (42.0-52.0); HEMOGLOBIN 9.2 g/dl (14.0-17.9); MEAN CORPUSCULAR HEMOGLOBIN 29.4 PG (27.0-31.0); MEAN CORPUSCULAR HGB CONC 32.6 g/dL (33.0-36.5); MEAN PLATELET VOLUME 8.3 FL (7.4-10.4); MONOCYTES # (AUTO) 0.2 X10'3 (0-0.9); MONOCYTES % (AUTO) 1.6 % (2-12); NEUTROPHILS # (AUTO) 10.9 X10'3 (1.8-7.7); NEUTROPHILS % (AUTO) 87.1 % (42-75); PLATELET COUNT 73 X10'3 (140-440); RED BLOOD COUNT 3.14 X10'6 (4.70-6.10); RED CELL DISTRIBUTION WIDTH 23.6 % (11.5-14.5); WHITE BLOOD COUNT 12.5 X10'3 (4.5-11.0)
[2019-01-27 09:34] LABS: ANION GAP 8 (8-16); BLOOD UREA NITROGEN 47 MG/DL (7-18); BUN/CREATININE RATIO 12.4 (5.4-32.0); CALCIUM 8.4 MG/DL (8.5-10.1); CHLORIDE 98 MMOL/L (99-107); GLUCOSE 142 MG/DL (70-104); PHOSPHORUS 4.8 MG/DL (2.3-4.5); POTASSIUM 4.1 MMOL/L (3.5-5.1); SODIUM 134 MMOL/L (135-145); TOTAL CARBON DIOXIDE 27.9 MMOL/L (24-32); eGFR 16 ML/MIN
[2019-01-27 09:54] LABS: ANISOCYTOSIS 3+; NUCLEATED RED BLOOD CELLS 1 /100WBC (0-0); PLATELET ESTIMATE DECREASED; TOTAL CELLS COUNTED 100
[2019-01-27 09:55] LABS: ELLIPTOCYTES FEW; POLYCHROMASIA 1+
[2019-01-27] MEDS: piperacillin/tazo 3.375gm/50ml 50 ML IV SCH ×2 (11:21→22:25)
[2019-01-27 12:06] LABS: MAGNESIUM 1.9 MG/DL (1.5-2.4)
--- NOTE | 2019-01-27 13:45 | NUR ---
Reassessment: Per [facility] notes pt with unstageable PU to sacrum, slough and red in appearance with serosanguineous drainage. Pt continue with 75-100% PO intake of meals and 100% PO intake of ONS meeting nutrient needs for HD and wound healing. [facility] 01/27. Will continue to follow. Rec: 1. continue carb controlled/renal diet 2. nepro TIDWM 3. honor pt food preferences 4. monitor need for Phos binder 5. wt w/ HD Addendum: 01/27/19 at [address] Amended: Links added.
[2019-01-27] MEDS: midodrine tablet 2.5 MG TABLET PO PRN (14:06)
--- NOTE | 2019-01-27 18:30 | NUR ---
Problems reprioritized. Patient report given, questions answered & plan of care reviewed with TORI .
--- NOTE | 2019-01-27 18:31 | NUR ---
NEW HIRE senior svp: I have reviewed and agree with all interventions, assessments performed and documented by AROLDO TURPIN.
--- NOTE | 2019-01-27 18:47 | NUR ---
Patient in room PCU 3023. I have received report from MARYAN and had the opportunity to ask questions and assume patient care.
[2019-01-27] MEDS: insulin glargine (Lantus) pen - multi-dose SQ SCH (21:25)
[2019-01-27] MEDS: atorvastatin 20mg tablet PO SCH (22:27)
[2019-01-27] MEDS: donepezil 5mg tablet PO SCH (22:27)
[2019-01-27] MEDS: Melatonin 3mg tablet PO SCH (22:28)
[2019-01-28 02:00] VITALS: BP 98/51
--- NOTE | 2019-01-28 06:30 | NUR ---
Patient in room PCU 3023. Kelly/Elza RN have received report from Afsaneh KENDRICK and had the opportunity to ask questions and assume patient care.
--- NOTE | 2019-01-28 06:41 | NUR ---
Problems reprioritized. Patient report given, questions answered & plan of care reviewed with Maura.
[2019-01-28 07:00] VITALS: BP 93/51
[2019-01-28] MEDS: fluticasone nasal spray 16GM bottle NS SCH (08:00)
[2019-01-28] MEDS: NUT.TX.IMP.RENAL FXN,LAC-REDUC (Nepro) 237 ML VANILLA PO SCH ×3 (08:00→13:00)
[2019-01-28] MEDS: docusate sod 100mg capsule PO SCH ×2 (08:00→20:00)
[2019-01-28] MEDS: chlorhexidine gluconate 15ml Cup****oral rinse MM SCH ×2 (08:00→20:00)
[2019-01-28] MEDS: LIDOcaine 5% patch TP SCH (08:00)
--- NOTE | 2019-01-28 08:00 | NUR ---
Noted weight to be way more than previous day, informed by aids that extra equipment was probably added to the 100 kg they had noted. Requested a re-weigh.
[2019-01-28] MEDS: lactobacillus rhamnosus 10,000 MMU CELLS/CAPSULE PO SCH ×2 (08:55→20:00)
[2019-01-28] MEDS: insulin Lispro (HumaLOG) vial - multi-dose SQ SCH ×2 (08:55→18:54)
[2019-01-28] MEDS: linagliptin 5mg tablet PO SCH (08:55)
[2019-01-28] MEDS: levoTHYROXINE 75mcg tablet PO SCH (08:56)
[2019-01-28] MEDS: midodrine 5mg tablet PO SCH ×3 (08:56→21:00)
[2019-01-28] MEDS: folic acid 1mg tablet PO SCH (08:56)
[2019-01-28] MEDS: aspirin 81mg tab.chew PO SCH (08:56)
[2019-01-28] MEDS: finasteride 5mg tablet PO SCH (08:58)
[2019-01-28] MEDS ORDERED: normal saline 1000ml 250 ML IV PRN (09:45)
[2019-01-28] MEDS ORDERED: heparin 1,000unit/ml 10ml vial 10 ML IV ONE (09:45)
[2019-01-28] MEDS ORDERED: epoetin 20,000 units/ml inj IV ONE (09:45)
[2019-01-28] MEDS ORDERED: heparin 1,000 units/ml 10ml inj HE ONE ×2 (09:50)
--- NOTE | 2019-01-28 10:00 | NUR ---
Patient ate more food after insulin administration, administered correct insulin amount prior to knowledge of ingestion of more food. Will cont. to monitor. Next blood glucose at noon. Addendum: 01/28/19 at 1139 by Margarita Yusuf RN Amended: Links added.
--- NOTE | 2019-01-28 10:30 | NUR ---
Orientation documentation: I have reviewed and agree with all interventions, assessments performed and documented by Elza KENDRICK.
[2019-01-28] MEDS: midodrine tablet 2.5 MG TABLET PO PRN (10:37)
[2019-01-28 11:00] VITALS: BP 91/51
--- NOTE | 2019-01-28 11:00 | NUR ---
Dialysis at bedside, BP noted to be low, manual cuff noted a 78/50 pressure to left arm. Dialysis nurse telephoned Dr. Toribio who gave orders for bolus during dialysis. Will cont.to monitor. Addendum: 01/28/19 at 1212 by Margarita Yusuf RN DOCUMENTED ON WRONG PATIENT
[2019-01-28 11:04] LABS: HEMATOCRIT 25.5 % (42.0-52.0); HEMOGLOBIN 8.2 g/dl (14.0-17.9); MEAN CORPUSCULAR HEMOGLOBIN 29.1 PG (27.0-31.0); MEAN CORPUSCULAR HGB CONC 32.4 g/dL (33.0-36.5); MEAN CORPUSCULAR VOLUME 89.8 FL (78-98); MEAN PLATELET VOLUME 8.9 FL (7.4-10.4); PLATELET COUNT 72 X10'3 (140-440); RED BLOOD COUNT 2.84 X10'6 (4.70-6.10); RED CELL DISTRIBUTION WIDTH 23.5 % (11.5-14.5)
--- NOTE | 2019-01-28 12:11 | NUR ---
Noted BP to be 99/50 at this time. Addendum: 01/28/19 at 1213 by Margarita uYsuf RN DOCUMENTED ON WRONG PATIENT
[2019-01-28] MEDS: acetaminophen 325mg tablet PO PRN (14:04)
[2019-01-28 15:00] VITALS: BP 95/50
--- NOTE | 2019-01-28 15:31 | NUR ---
Patient completed lunch at this time due held tray during dialysis. Held lunch time insulin due to timing issue for next glucose check. Will recheck blood sugar at 1700.
[2019-01-28] MEDS: piperacillin/tazo 3.375gm/50ml 50 ML IV SCH (15:32)
--- NOTE | 2019-01-28 15:47 | NUR ---
Dialysis removed 2.8 L from patient, nurses aids attempted to re-weigh and patient refused.
--- NOTE | 2019-01-28 16:27 | NUR ---
Dressing has fallen off. Replaced with xeroform and tegaderm.
--- NOTE | 2019-01-28 16:32 | NUR ---
Dressing change done at 1500 with xeroform and tegaderm. Patient tolerated well.
--- NOTE | 2019-01-28 16:34 | NUR ---
Dressing intact - not changed at this time. Addendum: 01/28/19 at 1636 by Elza Barnes RN Amended: Links added.
--- NOTE | 2019-01-28 16:34 | NUR ---
Dressing fell off - redressed with xeroform and tegaderm. Addendum: 01/28/19 at 1636 by Elza Barnes RN Amended: Links added.
--- NOTE | 2019-01-28 16:35 | NUR ---
Wound care done with xeroform and tegaderm. Addendum: 01/28/19 at 1636 by Elza Barnes RN Amended: Links added.
--- NOTE | 2019-01-28 16:35 | NUR ---
Dressing is intact and dry. Not changed. Addendum: 01/28/19 at 1636 by Elza Barnes RN Amended: Links added.
--- NOTE | 2019-01-28 17:04 | NUR ---
Called Dr. Toribio re: patient agreeing to tomorrows ERCP, stated GI lab informed this nurse to pass along to Dr. Toribio that he would need to communicate patient's agreement to procedure directly to Dr. Santiago. Dr. Toribio agreed to this. Called GI lab and left voicemail informing them of this information.
[2019-01-28 18:18] VITALS: BP 92/43
--- NOTE | 2019-01-28 18:28 | NUR ---
Problems reprioritized. Patient report given, questions answered & plan of care reviewed with Afsaneh KENDRICK.
--- NOTE | 2019-01-28 18:52 | NUR ---
Patient in room PCU 3023. I have received report from Margarita and had the opportunity to ask questions and assume patient care.
--- NOTE | 2019-01-28 19:59 | NUR ---
patient transferred to AROLDO Abernathy. Problems reprioritized. Patient report given, questions answered & plan of care reviewed with Michela.
[2019-01-28] MEDS: donepezil 5mg tablet PO SCH (21:00)
[2019-01-28] MEDS: atorvastatin 20mg tablet PO SCH (21:00)
[2019-01-28] MEDS: Melatonin 3mg tablet PO SCH (21:00)
[2019-01-28] MEDS: insulin glargine (Lantus) pen - multi-dose SQ SCH (21:41)
[2019-01-28 23:00] VITALS: BP 87/39
[2019-01-28] MEDS: HYDROcodone/acetaminophen 5mg/325mg tablet PO PRN (23:16)
[2019-01-29 03:00] VITALS: BP 82/45
[2019-01-29] MEDS: piperacillin/tazo 3.375gm/50ml 50 ML IV SCH ×2 (03:04→15:36)
[2019-01-29] MEDS: HYDROcodone/acetaminophen 5mg/325mg tablet PO PRN ×2 (03:04→22:29)
--- NOTE | 2019-01-29 06:16 | NUR ---
Problems reprioritized. Patient report given, questions answered & plan of care reviewed with Philly KENDRICK.
--- NOTE | 2019-01-29 06:19 | NUR ---
Patient in room PCU 3015. I have received report from Michela KENDRICK and had the opportunity to ask questions and assume patient care.
--- NOTE | 2019-01-29 06:20 | NUR ---
Patient in room U 3023. I have received report from Philly KENDRICK and had the opportunity to ask questions and assume patient care. Addendum: 01/29/19 at 2342 by Michela Uribe RN Wrong time....[id number]
[2019-01-29 07:00] VITALS: BP 96/57
[2019-01-29] MEDS: lactobacillus rhamnosus 10,000 MMU CELLS/CAPSULE PO SCH ×3 (08:00→22:28)
[2019-01-29] MEDS: chlorhexidine gluconate 15ml Cup****oral rinse MM SCH ×2 (08:00→20:00)
[2019-01-29] MEDS: NUT.TX.IMP.RENAL FXN,LAC-REDUC (Nepro) 237 ML VANILLA PO SCH ×3 (08:00→18:43)
[2019-01-29] MEDS: docusate sod 100mg capsule PO SCH ×3 (08:00→22:28)
[2019-01-29] MEDS: fluticasone nasal spray 16GM bottle NS SCH (08:00)
[2019-01-29] MEDS: midodrine 5mg tablet PO SCH ×4 (08:00→22:28)
[2019-01-29] MEDS: linagliptin 5mg tablet PO SCH ×2 (08:00→08:14)
[2019-01-29] MEDS: levoTHYROXINE 75mcg tablet PO SCH ×2 (08:00→08:14)
[2019-01-29] MEDS: finasteride 5mg tablet PO SCH (08:00)
[2019-01-29] MEDS: LIDOcaine 5% patch TP SCH (08:00)
[2019-01-29] MEDS: folic acid 1mg tablet PO SCH ×2 (08:00→08:14)
[2019-01-29] MEDS: aspirin 81mg tab.chew PO SCH ×2 (08:14→08:30)
[2019-01-29 11:00] VITALS: BP 87/46
[2019-01-29 15:00] VITALS: BP 140/83
[2019-01-29] MEDS: insulin Lispro (HumaLOG) vial - multi-dose SQ SCH (18:40)
[2019-01-29 19:00] VITALS: BP 85/51
[2019-01-29] MEDS: insulin glargine (Lantus) pen - multi-dose SQ SCH (21:19)
[2019-01-29] MEDS: donepezil 5mg tablet PO SCH (22:28)
[2019-01-29] MEDS: Melatonin 3mg tablet PO SCH (22:28)
[2019-01-29] MEDS: atorvastatin 20mg tablet PO SCH (22:28)
[2019-01-29 23:00] VITALS: BP 77/42
[2019-01-30] VITALS (25 sets, daily range): BP systolic 72–93; BP diastolic 36–57
--- NOTE | 2019-01-30 01:55 | NUR ---
Patient requested to be bladder scanned, 384cc shown. Straight cath per patients request, 50cc out. Will continue to monitor
[2019-01-30] MEDS: piperacillin/tazo 3.375gm/50ml 50 ML IV SCH ×2 (03:21→20:14)
--- NOTE | 2019-01-30 06:15 | NUR ---
Problems reprioritized. Patient report given, questions answered & plan of care reviewed with Sallie KENDRICK & Martin KENDRICK.
--- NOTE | 2019-01-30 06:41 | NUR ---
Patient in room PCU 3023. I have received report from Michela KENDRICK and had the opportunity to ask questions and assume patient care.
[2019-01-30] MEDS: linagliptin 5mg tablet PO SCH (07:09)
[2019-01-30] MEDS: midodrine 5mg tablet PO SCH ×3 (07:09→21:45)
[2019-01-30] MEDS: finasteride 5mg tablet PO SCH (07:09)
[2019-01-30] MEDS: lactobacillus rhamnosus 10,000 MMU CELLS/CAPSULE PO SCH ×2 (07:09→20:15)
[2019-01-30] MEDS: levoTHYROXINE 75mcg tablet PO SCH (07:09)
[2019-01-30] MEDS: docusate sod 100mg capsule PO SCH ×2 (07:09→20:15)
[2019-01-30] MEDS: folic acid 1mg tablet PO SCH (07:09)
[2019-01-30] MEDS: fluticasone nasal spray 16GM bottle NS SCH (07:13)
[2019-01-30] MEDS: LIDOcaine 5% patch TP SCH (07:13)
[2019-01-30] MEDS: chlorhexidine gluconate 15ml Cup****oral rinse MM SCH ×2 (07:13→20:14)
[2019-01-30] MEDS: aspirin 81mg tab.chew PO SCH (07:48)
[2019-01-30] MEDS ORDERED: epoetin 20,000 units/ml inj IV ONE (08:00)
[2019-01-30] MEDS: NUT.TX.IMP.RENAL FXN,LAC-REDUC (Nepro) 237 ML VANILLA PO SCH ×3 (08:00→18:00)
[2019-01-30] MEDS ORDERED: heparin 1,000 units/ml 10ml inj HE ONE ×2 (08:00)
[2019-01-30] MEDS ORDERED: normal saline 1000ml 250 ML IV PRN (08:00)
[2019-01-30] MEDS ORDERED: heparin 1,000unit/ml 10ml vial 10 ML IV ONE (08:00)
[2019-01-30 08:32] LABS: HEMATOCRIT 23.7 % (42.0-52.0); HEMOGLOBIN 7.9 g/dl (14.0-17.9); MEAN CORPUSCULAR HEMOGLOBIN 30.3 PG (27.0-31.0); MEAN CORPUSCULAR HGB CONC 33.3 g/dL (33.0-36.5); MEAN PLATELET VOLUME 9.1 FL (7.4-10.4); PLATELET COUNT 64 X10'3 (140-440); RED BLOOD COUNT 2.61 X10'6 (4.70-6.10); RED CELL DISTRIBUTION WIDTH 24.5 % (11.5-14.5); WHITE BLOOD COUNT 10.9 X10'3 (4.5-11.0)
[2019-01-30] MEDS ORDERED: glucagon, human recombinant 1mg kit ONE ×2 (10:38→11:25)
[2019-01-30] MEDS ORDERED: iohexol 300 MG/1 ML 50ml polymer ONE (10:39)
[2019-01-30] MEDS ORDERED: ringers solution, lacted 1,000 ML IV SCH (10:43)
[2019-01-30] MEDS ORDERED: morphine 4 MG/ML inj SYRINge IV PRN ×2 (10:45)
[2019-01-30] MEDS ORDERED: labetalol 20mg/4ml (5mg/ml) syringe IV PRN (10:45)
[2019-01-30] MEDS ORDERED: ondansetron/PF 4mg/2ml inj IV PRN (10:45)
[2019-01-30] MEDS ORDERED: enalaprilat dihydrate 2.5mg/2ml vial IV PRN (10:45)
[2019-01-30] MEDS ORDERED: fentaNYL/PF 50MCG/1 ML 2ML syringe IV PRN ×2 (10:45)
[2019-01-30] MEDS ORDERED: etomidate 2mg/ml inj. ONE (10:48)
[2019-01-30] MEDS ORDERED: glycopyrrolate 0.2mg/ml inj ONE (10:48)
[2019-01-30] MEDS ORDERED: neostigmine methylsulfate 1 MG/ML 10ml vial ONE (10:48)
[2019-01-30] MEDS ORDERED: rocuronium 10mg/ml inj IV ONE (10:48)
[2019-01-30] MEDS ORDERED: fentaNYL/PF 50MCG/1 ML 2ML syringe ONE (10:50)
[2019-01-30] MEDS ORDERED: midazolam 2 mg/2 ml injection ONE (10:50)
[2019-01-30] MEDS ORDERED: phenylephrine 10mg/ml inj. ONE (10:51)
--- NOTE | 2019-01-30 11:00 | NUR ---
Pt at OR for ERCP Addendum: 01/30/19 at 1222 by Martin Antonio RN Amended: Links added.
--- NOTE | 2019-01-30 11:01 | NUR ---
Patient is taken to OR for ERCP procedure @1100 via hospital bed
[2019-01-30] MEDS ORDERED: dexamethasone sod phosphate 10mg/ml inj ONE (11:25)
[2019-01-30] MEDS ORDERED: DOPamine/D5W 400mg/250ml bag IV ONE (11:25)
[2019-01-30] MEDS ORDERED: sevoflurane 250ml liquid IH ONE (11:25)
--- NOTE | 2019-01-30 12:18 | NUR ---
Received from OR via BED, accompanied by Anesthesiologist DR POSEY and report given by Anesthesiologist. PT DROWSY, NO S/S OF DISTRESS/DISCOMFORT, VSS, PT ON 5 MCG/KG/MIN DOPAMINE, WILL ATTEMPT TO WEAN TO OFF, IF UNABLE, OKAY TO TRANSFER PT ON DOPAMINE TO U PER DR POSEY'S ORDERS. GALLBLADDER TUBE DRAIN REMAINS IN PLACE W/JOEL/BROWN DRAINAGE IN BAG. Addendum: 01/30/19 at 1255 by Ruma Fritz RN Amended: Links added. Addendum: 01/30/19 at 1308 by Ruma Fritz RN LATE ENTRY - PT HAS MULTIPLE SKIN TEARS AND BRUISING ON ARMS/LEGS.
[2019-01-30] MEDS ORDERED: DOPamine 400mg/D5W 250ml 250 ML IV SCH ×2 (12:55→17:00)
--- NOTE | 2019-01-30 13:41 | NUR ---
Patient in room PCU 3023. I have received report from Ruma KENDRICK from OR and had the opportunity to ask questions and assume patient care.
--- NOTE | 2019-01-30 13:58 | NUR ---
ATTEMPTED TO WEAN OFF DOPAMINE, UNABLE, INFUSION AT 3MCG/KG/MIN, Report called to receiving nurse. Transferred PT IN STABLE CONDITION via BED ON , TELE #50, NO Belongings, RECEIVING RN AT BEDSIDE TO RECEIVE PT, PTS FAMILY PRESENT, CALL LIGHT GIVEN, BLL, SIDE RAILS UP X 2. Special Issues communicated to receiving nurse. YES. Addendum: 01/30/19 at 1408 by Ruma Fritz RN Amended: Links added.
--- NOTE | 2019-01-30 14:00 | NUR ---
Patient returned from OR via gurney. Dopamine drip currently running at 3 mcg/KG/min to stabilize blood pressures. Bedside mobile initiated and post op vitals initiated. Will continue to monitor
[2019-01-30] MEDS: midodrine tablet 2.5 MG TABLET PO PRN (14:13)
--- NOTE | 2019-01-30 14:52 | NUR ---
Per Dr Toribio, will continue Dopamine drip until patients MAP is consistently 60 or above. Patient currently receiving dialysis. Will continue to monitor closely
[2019-01-30] MEDS: acetaminophen 325mg tablet PO PRN (17:01)
--- NOTE | 2019-01-30 18:19 | NUR ---
Problems reprioritized. Patient report given, questions answered & plan of care reviewed with Josee KENDRICK.
--- NOTE | 2019-01-30 18:20 | NUR ---
Orientee documentation: I have reviewed and agree with all interventions, assessments performed and documented by Martin KENDRICK.
[2019-01-30] MEDS: insulin Lispro (HumaLOG) vial - multi-dose SQ SCH (19:42)
[2019-01-30] MEDS ORDERED: VANCOMYCIN LEVEL IV ONE (20:30)
[2019-01-30] MEDS: insulin glargine (Lantus) pen - multi-dose SQ SCH (21:44)
[2019-01-30] MEDS: Melatonin 3mg tablet PO SCH (21:45)
[2019-01-30] MEDS: donepezil 5mg tablet PO SCH (21:45)
[2019-01-30] MEDS: atorvastatin 20mg tablet PO SCH (21:45)
[2019-01-30] MEDS: HYDROcodone/acetaminophen 5mg/325mg tablet PO PRN (21:46)
[2019-01-31] VITALS (11 sets, daily range): BP systolic 74–98; BP diastolic 30–70
--- NOTE | 2019-01-31 06:30 | NUR ---
Patient in room PCU 3023C. I have received report from Josee KENDRICK and had the opportunity to ask questions and assume patient care.
[2019-01-31 06:54] LABS: ALANINE AMINOTRANSFERASE 11 U/L (12-78); ALBUMIN 3.2 G/DL (3.4-5.0); ALBUMIN/GLOBULIN RATIO 1.1 (1.1-1.5); ALKALINE PHOSPHATASE 54 IU/L (46-116); ANION GAP 10 (8-16); ASPARTATE AMINO TRANSFERASE 13 U/L (10-37); BILIRUBIN,TOTAL 1.2 MG/DL (0.1-1.0); BLOOD UREA NITROGEN 41 MG/DL (7-18); BUN/CREATININE RATIO 13.5 (5.4-32.0); CALCIUM 8.7 MG/DL (8.5-10.1); CHLORIDE 97 MMOL/L (99-107); CREATININE 3.04 MG/DL (0.60-1.10); GLUCOSE 114 MG/DL (70-104); MAGNESIUM 2.2 MG/DL (1.5-2.4); PHOSPHORUS 5.6 MG/DL (2.3-4.5); POTASSIUM 4.3 MMOL/L (3.5-5.1); SODIUM 135 MMOL/L (135-145); TOTAL CARBON DIOXIDE 28.2 MMOL/L (24-32); TOTAL PROTEIN 6.2 G/DL (6.4-8.2); eGFR 21 ML/MIN
[2019-01-31 07:04] LABS: BASOPHILS # (AUTO) 0.1 X10'3 (0-0.2); BASOPHILS % (AUTO) 0.5 % (0-1); EOSINOPHILS # (AUTO) 0.1 X10'3 (0-0.9); EOSINOPHILS % (AUTO) 0.7 % (0-6); HEMATOCRIT 25.9 % (42.0-52.0); HEMOGLOBIN 8.5 g/dl (14.0-17.9); LYMPHOCYTES % (AUTO) 7.9 % (21-51); MEAN CORPUSCULAR HEMOGLOBIN 29.7 PG (27.0-31.0); MEAN CORPUSCULAR HGB CONC 32.8 g/dL (33.0-36.5); MEAN CORPUSCULAR VOLUME 90.5 FL (78-98); MEAN PLATELET VOLUME 8.5 FL (7.4-10.4); MONOCYTES # (AUTO) 0.3 X10'3 (0-0.9); MONOCYTES % (AUTO) 2.3 % (2-12); NEUTROPHILS % (AUTO) 88.6 % (42-75); PLATELET COUNT 84 X10'3 (140-440); RED BLOOD COUNT 2.86 X10'6 (4.70-6.10); RED CELL DISTRIBUTION WIDTH 24.4 % (11.5-14.5); WHITE BLOOD COUNT 12.4 X10'3 (4.5-11.0)
[2019-01-31] MEDS: LIDOcaine 5% patch TP SCH (08:00)
[2019-01-31] MEDS: fluticasone nasal spray 16GM bottle NS SCH (08:00)
[2019-01-31] MEDS: chlorhexidine gluconate 15ml Cup****oral rinse MM SCH ×2 (08:00→19:47)
[2019-01-31] MEDS: NUT.TX.IMP.RENAL FXN,LAC-REDUC (Nepro) 237 ML VANILLA PO SCH ×3 (08:25→18:21)
[2019-01-31] MEDS: piperacillin/tazo 3.375gm/50ml 50 ML IV SCH ×2 (08:26→20:00)
[2019-01-31] MEDS: aspirin 81mg tab.chew PO SCH (08:33)
[2019-01-31] MEDS: lactobacillus rhamnosus 10,000 MMU CELLS/CAPSULE PO SCH ×2 (08:34→19:47)
[2019-01-31] MEDS: docusate sod 100mg capsule PO SCH ×2 (08:34→19:47)
[2019-01-31] MEDS: midodrine 5mg tablet PO SCH ×3 (08:35→21:02)
[2019-01-31] MEDS: folic acid 1mg tablet PO SCH (08:35)
[2019-01-31] MEDS: linagliptin 5mg tablet PO SCH (08:36)
[2019-01-31] MEDS: finasteride 5mg tablet PO SCH (08:36)
[2019-01-31] MEDS: levoTHYROXINE 75mcg tablet PO SCH (08:36)
[2019-01-31] MEDS: insulin Lispro (HumaLOG) vial - multi-dose SQ SCH ×2 (09:35→13:47)
[2019-01-31 09:47] LABS: NUCLEATED RED BLOOD CELLS 3 /100WBC (0-0); TOTAL CELLS COUNTED 100
[2019-01-31 09:50] LABS: ANISOCYTOSIS 3+; ELLIPTOCYTES 1+; PLATELET ESTIMATE DECREASED; POLYCHROMASIA 1+
[2019-01-31] MEDS: midodrine tablet 2.5 MG TABLET PO PRN (11:22)
--- NOTE | 2019-01-31 12:42 | NUR ---
Patient continuing to have blood pressures, systolics 80's and 70's. Gave PRN of Midrodine for patients blood pressure and per Dr Toribio, discontinued Dopamine drip. Will continue to monitor blood pressures closely. Addendum: 01/31/19 at 1340 by Sallie Alcantar RN This RN also made sure that Frances Torres was aware that the patients MAP has not been staying consistently above 60, and is usually below 60. Dr Toribio also aware.
--- NOTE | 2019-01-31 13:50 | NUR ---
Patients last two blood pressures were 79/38(48 MAP) and 74/30(41 MAP). Called Frances Torres to let her know and see if she wanted any new orders. She stated no new orders and continue with scheduled Midodrine orders. Will continue to monitor closely
[2019-01-31] MEDS: ondansetron/PF 4mg/2ml inj IV PRN (17:15)
--- NOTE | 2019-01-31 18:24 | NUR ---
Problems reprioritized. Patient report given, questions answered & plan of care reviewed with Josee KENDRICK.
[2019-01-31] MEDS: proCHLORperazine 10 MG/2 ml inj IV PRN (19:45)
[2019-01-31] MEDS: Melatonin 3mg tablet PO SCH (21:02)
[2019-01-31] MEDS: atorvastatin 20mg tablet PO SCH (21:02)
[2019-01-31] MEDS: donepezil 5mg tablet PO SCH (21:03)
[2019-01-31] MEDS: insulin glargine (Lantus) pen - multi-dose SQ SCH (21:09)
[2019-02-01] VITALS (8 sets, daily range): BP systolic 62–102; BP diastolic 22–53
[2019-02-01] MEDS: simethicone 80mg chew tab PO PRN ×3 (01:50→07:31)
[2019-02-01 05:28] LABS: BASOPHILS # (AUTO) 0.1 X10'3 (0-0.2); BASOPHILS % (AUTO) 0.9 % (0-1); EOSINOPHILS # (AUTO) 0.3 X10'3 (0-0.9); EOSINOPHILS % (AUTO) 1.9 % (0-6); HEMATOCRIT 24.4 % (42.0-52.0); LYMPHOCYTES # (AUTO) 0.7 X10'3 (1.1-4.8); LYMPHOCYTES % (AUTO) 4.7 % (21-51); MEAN CORPUSCULAR HEMOGLOBIN 29.6 PG (27.0-31.0); MEAN CORPUSCULAR HGB CONC 32.8 g/dL (33.0-36.5); MEAN CORPUSCULAR VOLUME 90.3 FL (78-98); MEAN PLATELET VOLUME 8.2 FL (7.4-10.4); MONOCYTES # (AUTO) 0.3 X10'3 (0-0.9); MONOCYTES % (AUTO) 1.6 % (2-12); NEUTROPHILS # (AUTO) 14.1 X10'3 (1.8-7.7); NEUTROPHILS % (AUTO) 90.9 % (42-75); PLATELET COUNT 85 X10'3 (140-440); RED CELL DISTRIBUTION WIDTH 24.2 % (11.5-14.5); WHITE BLOOD COUNT 15.5 X10'3 (4.5-11.0)
[2019-02-01 05:54] LABS: ALANINE AMINOTRANSFERASE 10 U/L (12-78); ALBUMIN 3.2 G/DL (3.4-5.0); ALBUMIN/GLOBULIN RATIO 1.1 (1.1-1.5); ALKALINE PHOSPHATASE 49 IU/L (46-116); ANION GAP 13 (8-16); ASPARTATE AMINO TRANSFERASE 9 U/L (10-37); BLOOD UREA NITROGEN 62 MG/DL (7-18); BUN/CREATININE RATIO 15.8 (5.4-32.0); CHLORIDE 94 MMOL/L (99-107); CREATININE 3.93 MG/DL (0.60-1.10); GLUCOSE 129 MG/DL (70-104); MAGNESIUM 2.1 MG/DL (1.5-2.4); PHOSPHORUS 6.3 MG/DL (2.3-4.5); POTASSIUM 4.7 MMOL/L (3.5-5.1); SODIUM 133 MMOL/L (135-145); TOTAL CARBON DIOXIDE 25.7 MMOL/L (24-32); TOTAL PROTEIN 6.2 G/DL (6.4-8.2); eGFR 15 ML/MIN
[2019-02-01 05:56] LABS: ANISOCYTOSIS 3+; NUCLEATED RED BLOOD CELLS 3 /100WBC (0-0); PLATELET ESTIMATE DECREASED; TOTAL CELLS COUNTED 100
[2019-02-01 05:57] LABS: ELLIPTOCYTES 1+; POLYCHROMASIA 1+
--- NOTE | 2019-02-01 06:50 | NUR ---
Patient in room PCU 3023. I have received report from Josee KENDRICK and had the opportunity to ask questions and assume patient care.
[2019-02-01] MEDS: piperacillin/tazo 3.375gm/50ml 50 ML IV SCH ×2 (07:32→21:02)
[2019-02-01] MEDS: fluticasone nasal spray 16GM bottle NS SCH (07:32)
[2019-02-01] MEDS: docusate sod 100mg capsule PO SCH ×2 (07:32→21:02)
[2019-02-01] MEDS: folic acid 1mg tablet PO SCH (07:33)
[2019-02-01] MEDS: lactobacillus rhamnosus 10,000 MMU CELLS/CAPSULE PO SCH ×2 (07:33→21:02)
[2019-02-01] MEDS: finasteride 5mg tablet PO SCH (07:34)
[2019-02-01] MEDS: chlorhexidine gluconate 15ml Cup****oral rinse MM SCH ×2 (07:35→20:00)
[2019-02-01] MEDS: midodrine 5mg tablet PO SCH ×3 (07:35→21:02)
[2019-02-01] MEDS: levoTHYROXINE 75mcg tablet PO SCH (07:36)
[2019-02-01] MEDS: LIDOcaine 5% patch TP SCH (07:36)
[2019-02-01] MEDS: linagliptin 5mg tablet PO SCH (07:36)
[2019-02-01] MEDS: aspirin 81mg tab.chew PO SCH (07:56)
[2019-02-01] MEDS: ondansetron/PF 4mg/2ml inj IV PRN ×2 (07:57→19:07)
[2019-02-01] MEDS ORDERED: epoetin 20,000 units/ml inj IV ONE (08:00)
[2019-02-01] MEDS: NUT.TX.IMP.RENAL FXN,LAC-REDUC (Nepro) 237 ML VANILLA PO SCH ×3 (08:00→18:00)
[2019-02-01] MEDS ORDERED: heparin 1,000 units/ml 10ml inj HE ONE ×2 (08:00)
[2019-02-01] MEDS ORDERED: normal saline 1000ml 250 ML IV PRN (08:00)
[2019-02-01] MEDS ORDERED: heparin 1,000unit/ml 10ml vial 10 ML IV ONE (08:00)
[2019-02-01] MEDS: midodrine tablet 2.5 MG TABLET PO PRN (09:56)
[2019-02-01] MEDS: insulin Lispro (HumaLOG) vial - multi-dose SQ SCH (10:02)
[2019-02-01] MEDS ORDERED: iohexol 300 MG/1 ML 50ml polymer ONE (16:24)
--- NOTE | 2019-02-01 16:30 | NUR ---
Angio came to gather patient for procedure. Possibly going to remove drain.
--- NOTE | 2019-02-01 17:10 | NUR ---
patient brought to angio for fluoroscopy imaging of drain. Imaging obtained and Dr Proctor called Dr Toribio with report. Drain bag reconnect and patient transferred back to tele floor.
--- NOTE | 2019-02-01 17:17 | NUR ---
Patient refused daily weight at this time.
--- NOTE | 2019-02-01 18:15 | NUR ---
Patient in room PCU 3023. I have received report from Isela KENDRICK and had the opportunity to ask questions and assume patient care.
--- NOTE | 2019-02-01 18:34 | NUR ---
Problems reprioritized. Patient report given, questions answered & plan of care reviewed with Carine KENDRICK.
[2019-02-01] MEDS: insulin glargine (Lantus) pen - multi-dose SQ SCH (21:00)
[2019-02-01] MEDS: atorvastatin 20mg tablet PO SCH (21:00)
[2019-02-01] MEDS: Melatonin 3mg tablet PO SCH (21:01)
[2019-02-01] MEDS: donepezil 5mg tablet PO SCH (21:01)
[2019-02-01] MEDS: proCHLORperazine 10 MG/2 ml inj IV PRN (21:01)
[2019-02-01] MEDS: HYDROcodone/acetaminophen 5mg/325mg tablet PO PRN (21:03)
[2019-02-02] MEDS: ondansetron/PF 4mg/2ml inj IV PRN ×2 (02:36→10:48)
[2019-02-02 03:00] VITALS: BP 90/46
[2019-02-02 05:16] LABS: BASOPHILS # (AUTO) 0.1 X10'3 (0-0.2); BASOPHILS % (AUTO) 0.7 % (0-1); EOSINOPHILS # (AUTO) 0.3 X10'3 (0-0.9); HEMATOCRIT 22.5 % (42.0-52.0); HEMOGLOBIN 7.4 g/dl (14.0-17.9); LYMPHOCYTES # (AUTO) 0.9 X10'3 (1.1-4.8); LYMPHOCYTES % (AUTO) 6.7 % (21-51); MEAN CORPUSCULAR HEMOGLOBIN 29.8 PG (27.0-31.0); MEAN CORPUSCULAR HGB CONC 33.1 g/dL (33.0-36.5); MEAN CORPUSCULAR VOLUME 90.2 FL (78-98); MEAN PLATELET VOLUME 9.3 FL (7.4-10.4); MONOCYTES # (AUTO) 0.3 X10'3 (0-0.9); NEUTROPHILS # (AUTO) 12.4 X10'3 (1.8-7.7); NEUTROPHILS % (AUTO) 88.6 % (42-75); PLATELET COUNT 81 X10'3 (140-440); RED CELL DISTRIBUTION WIDTH 23.7 % (11.5-14.5)
[2019-02-02 05:39] LABS: ANION GAP 13 (8-16); BILIRUBIN,TOTAL 1.1 MG/DL (0.1-1.0); BLOOD UREA NITROGEN 37 MG/DL (7-18); BUN/CREATININE RATIO 12.1 (5.4-32.0); CHLORIDE 96 MMOL/L (99-107); CREATININE 3.05 MG/DL (0.60-1.10); GLUCOSE 131 MG/DL (70-104); PHOSPHORUS 4.1 MG/DL (2.3-4.5); POTASSIUM 3.8 MMOL/L (3.5-5.1); SODIUM 136 MMOL/L (135-145); eGFR 20 ML/MIN
[2019-02-02 05:40] LABS: ALANINE AMINOTRANSFERASE 11 U/L (12-78); ALBUMIN 3.2 G/DL (3.4-5.0); ALKALINE PHOSPHATASE 83 IU/L (46-116); ASPARTATE AMINO TRANSFERASE 9 U/L (10-37); TOTAL PROTEIN 6.4 G/DL (6.4-8.2)
--- NOTE | 2019-02-02 06:19 | NUR ---
Problems reprioritized. Patient report given, questions answered & plan of care reviewed with Margarita KENDRICK.
[2019-02-02 06:20] LABS: ANISOCYTOSIS 3+; ELLIPTOCYTES 1+; HYPOCHROMASIA 1+; PLATELET ESTIMATE DECREASED; POLYCHROMASIA FEW
--- NOTE | 2019-02-02 06:43 | NUR ---
Patient in room PCU 3023. I have received report from Carine KENDRICK and had the opportunity to ask questions and assume patient care.
[2019-02-02 06:57] VITALS: BP 84/45
[2019-02-02] MEDS: proCHLORperazine 10 MG/2 ml inj IV PRN (07:11)
[2019-02-02] MEDS: piperacillin/tazo 3.375gm/50ml 50 ML IV SCH ×2 (07:11→16:22)
[2019-02-02] MEDS: fluticasone nasal spray 16GM bottle NS SCH (07:31)
[2019-02-02] MEDS: LIDOcaine 5% patch TP SCH (07:31)
[2019-02-02] MEDS: midodrine 5mg tablet PO SCH ×3 (07:31→21:29)
--- NOTE | 2019-02-02 07:35 | NUR ---
Called Rapid response r/t low BP of 65/36 and patient c/o dizziness.
[2019-02-02] MEDS: chlorhexidine gluconate 15ml Cup****oral rinse MM SCH ×2 (07:49→20:00)
--- NOTE | 2019-02-02 07:53 | NUR ---
Rapid reponse complete, this nurse began 500 ml bolus at 0735 after giving patient's scheduled midodrine 10 mg, placed patient in trendelenberg position, Noted improvement to BP with interventions. Currently BP is 82/44 (56). Patient no longer c/o dizziness. Will cont. to monitor. Will make Dr. Toribio aware when arrives. Noted low H/H from yesterday and that it's continuing to drop each day. Patient states he's felt like "something" is in his stomach since the ERCP. Has been requesting simethicone and antiemetics for the last few days for gas relief and nausea.
[2019-02-02] MEDS: NUT.TX.IMP.RENAL FXN,LAC-REDUC (Nepro) 237 ML VANILLA PO SCH ×3 (08:00→18:00)
--- NOTE | 2019-02-02 08:12 | NUR ---
Bolus complete, noted BP to be 88/46 (63)
--- NOTE | 2019-02-02 09:16 | NUR ---
Called Dr. Toribio re: patient IV pulled out, received okay to have PICC nurse place extended IV in. PICC nurse here at bedside. Arrived quickly after page.
[2019-02-02] MEDS: docusate sod 100mg capsule PO SCH ×2 (10:04→21:29)
[2019-02-02] MEDS: lactobacillus rhamnosus 10,000 MMU CELLS/CAPSULE PO SCH ×2 (10:05→21:30)
[2019-02-02] MEDS: folic acid 1mg tablet PO SCH (10:05)
[2019-02-02] MEDS: finasteride 5mg tablet PO SCH (10:06)
[2019-02-02] MEDS: levoTHYROXINE 75mcg tablet PO SCH (10:06)
[2019-02-02] MEDS: linagliptin 5mg tablet PO SCH (10:07)
[2019-02-02] MEDS: aspirin 81mg tab.chew PO SCH (10:08)
[2019-02-02] MEDS: simethicone 80mg chew tab PO PRN ×2 (10:48→17:31)
[2019-02-02 11:00] VITALS: BP 90/44
--- NOTE | 2019-02-02 11:21 | NUR ---
Called Dr. Toribio and left voicemail re: decreased hgb 7.4 from 8 (yesterday). Also made aware of improved BP from hypotensive episode earlier this am. Made aware of continual nausea that is semi-relieved from antiemetics. Addendum: 02/02/19 at 1126 by Margarita Yusuf RN Waiting on callback.
--- NOTE | 2019-02-02 12:52 | NUR ---
Increased Zofran order to 8 mg q6h IV, cancelled compazine IV. Will cont. to monitor.
[2019-02-02] MEDS ORDERED: ondansetron/PF 4mg/2ml inj IV STA (13:03)
--- NOTE | 2019-02-02 14:09 | NUR ---
Called Dr. Toribio re: P.T.'s notification of low BP of 73/37 and 89/38. No new orders. Dr. Toribio just wants nursing staff to call next time patient has a lower blood pressure, no parameters received. Also spoke to blood bank and clarified orders with him, states he wants PRBC to be given tomorrow with dialysis. Made blood bank aware of this.
[2019-02-02 15:00] VITALS: BP 86/45
--- NOTE | 2019-02-02 16:12 | NUR ---
Reassessment: Pt with fluctuating PO intake previously 50-75% with recent decline to 0-25% today. Pt with 50-100% PO intake of ONS. Per RN notes pt with nausea, receiving Zofran per med list. Per med notes pt to see GI again d/t occluded bile duct. LBM 02/02. Will continue to follow. Rec: 1. continue carb controlled/renal diet 2. nepro TIDWM 3. honor pt food preferences 4. monitor need for Phos binder 5. wt w/ HD Addendum: 02/02/19 at [address] Amended: Links added.
--- NOTE | 2019-02-02 16:43 | NUR ---
CALLED DR. CARDENAS RE: PATIENT'S FAMILY HAVING BROUGHT IN HIS HOME BIPAP. RECEIVED ORDERS TO OKAY USE OF IT HERE IN HOSPITAL.
--- NOTE | 2019-02-02 16:48 | NUR ---
PAGED RT "PLEASE CHECK PATIENT IN ROOM(3053 C) HOME CPAP DEVICE FOR THEM TO USE CARLEEN. THANK YOU" WAITING ON RT TO CHECK IT.
--- NOTE | 2019-02-02 17:55 | NUR ---
Received call from lab stating that the patient's blood has ANTI JKA.
[2019-02-02 18:00] VITALS: BP 98/46
--- NOTE | 2019-02-02 18:00 | NUR ---
Patient in room PCU 3023. I have received report from Margarita KENDRICK and had the opportunity to ask questions and assume patient care.
--- NOTE | 2019-02-02 18:15 | NUR ---
Pt blood pressure was 73/39 by automated cuff in supine position. Pt was asymptomatic. Repositioned into semi-thomas with legs slightly elevated manual BP of 98/46 was then obtained. PT H/H has slightly decreased today. MD is aware of decreased BPs and H/H decrease. A unit of blood is ordered to be given in the am with HD. Will continue to monitor
--- NOTE | 2019-02-02 18:30 | NUR ---
Problems reprioritized. Patient report given, questions answered & plan of care reviewed with Sho KENDRICK.
[2019-02-02] MEDS: acetaminophen 325mg tablet PO PRN (18:36)
[2019-02-02] MEDS: Melatonin 3mg tablet PO SCH (21:29)
[2019-02-02] MEDS: HYDROcodone/acetaminophen 5mg/325mg tablet PO PRN (21:29)
[2019-02-02] MEDS: donepezil 5mg tablet PO SCH (21:29)
[2019-02-02] MEDS: atorvastatin 20mg tablet PO SCH (21:30)
[2019-02-02] MEDS: insulin glargine (Lantus) pen - multi-dose SQ SCH (21:31)
[2019-02-02 22:00] VITALS: BP 98/60
[2019-02-03] VITALS (9 sets, daily range): BP systolic 80–92; BP diastolic 40–50
[2019-02-03] MEDS: piperacillin/tazo 3.375gm/50ml 50 ML IV SCH ×3 (01:02→22:04)
--- NOTE | 2019-02-03 04:06 | NUR ---
Pt's Blood pressures have maintained in the 90s all shift.
[2019-02-03 05:31] LABS: BASOPHILS # (AUTO) 0.1 X10'3 (0-0.2); BASOPHILS % (AUTO) 0.5 % (0-1); EOSINOPHILS # (AUTO) 0.3 X10'3 (0-0.9); EOSINOPHILS % (AUTO) 1.7 % (0-6); HEMOGLOBIN 7.1 g/dl (14.0-17.9); LYMPHOCYTES % (AUTO) 5.2 % (21-51); MEAN CORPUSCULAR HEMOGLOBIN 29.3 PG (27.0-31.0); MEAN CORPUSCULAR HGB CONC 32.9 g/dL (33.0-36.5); MEAN CORPUSCULAR VOLUME 89.3 FL (78-98); MEAN PLATELET VOLUME 8.3 FL (7.4-10.4); MONOCYTES # (AUTO) 0.3 X10'3 (0-0.9); MONOCYTES % (AUTO) 1.5 % (2-12); NEUTROPHILS # (AUTO) 16.7 X10'3 (1.8-7.7); NEUTROPHILS % (AUTO) 91.1 % (42-75); PLATELET COUNT 79 X10'3 (140-440); RED BLOOD COUNT 2.41 X10'6 (4.70-6.10); RED CELL DISTRIBUTION WIDTH 23.8 % (11.5-14.5); WHITE BLOOD COUNT 18.4 X10'3 (4.5-11.0)
[2019-02-03 05:45] LABS: HEMATOCRIT 21.5 % (42.0-52.0)
--- NOTE | 2019-02-03 05:52 | NUR ---
Notification: Alexys MUSA called regarding critical H/H 7..5 is aware of decreasing H/H a unit of blood has been ordered for today. Will continue to monitor.
--- NOTE | 2019-02-03 06:23 | NUR ---
Problems reprioritized. Patient report given, questions answered & plan of care reviewed with Fausto KENDRICK.
[2019-02-03 06:29] LABS: ALANINE AMINOTRANSFERASE 11 U/L (12-78); ALBUMIN 3.3 G/DL (3.4-5.0); ANION GAP 16 (8-16); ASPARTATE AMINO TRANSFERASE 9 U/L (10-37); BLOOD UREA NITROGEN 56 MG/DL (7-18); BUN/CREATININE RATIO 13.7 (5.4-32.0); CALCIUM 8.7 MG/DL (8.5-10.1); CHLORIDE 93 MMOL/L (99-107); GLUCOSE 159 MG/DL (70-104); MAGNESIUM 2.3 MG/DL (1.5-2.4); PHOSPHORUS 5.3 MG/DL (2.3-4.5); POTASSIUM 4.1 MMOL/L (3.5-5.1); SODIUM 133 MMOL/L (135-145); TOTAL CARBON DIOXIDE 24.4 MMOL/L (24-32); TOTAL PROTEIN 6.5 G/DL (6.4-8.2); eGFR 15 ML/MIN
[2019-02-03 06:30] LABS: ALKALINE PHOSPHATASE 66 IU/L (46-116)
--- NOTE | 2019-02-03 06:46 | NUR ---
Patient in room PCU 3023. I have received report from Sho KENDRICK and had the opportunity to ask questions and assume patient care.
[2019-02-03 07:43] LABS: ANISOCYTOSIS 3+; MICROCYTOSIS 1+; NUCLEATED RED BLOOD CELLS 2 /100WBC (0-0); PLATELET ESTIMATE DECREASED; TOTAL CELLS COUNTED 100
[2019-02-03 07:44] LABS: ELLIPTOCYTES FEW; HYPOCHROMASIA 1+; POLYCHROMASIA 1+
[2019-02-03] MEDS: midodrine 5mg tablet PO SCH ×3 (07:45→22:05)
[2019-02-03] MEDS: finasteride 5mg tablet PO SCH (07:45)
[2019-02-03] MEDS: lactobacillus rhamnosus 10,000 MMU CELLS/CAPSULE PO SCH ×2 (07:45→22:05)
[2019-02-03] MEDS: docusate sod 100mg capsule PO SCH ×2 (07:45→22:05)
[2019-02-03] MEDS: levoTHYROXINE 75mcg tablet PO SCH (07:45)
[2019-02-03] MEDS: linagliptin 5mg tablet PO SCH (07:45)
[2019-02-03] MEDS: folic acid 1mg tablet PO SCH (07:45)
[2019-02-03] MEDS: aspirin 81mg tab.chew PO SCH (07:45)
[2019-02-03] MEDS: NUT.TX.IMP.RENAL FXN,LAC-REDUC (Nepro) 237 ML VANILLA PO SCH ×3 (07:46→18:00)
[2019-02-03] MEDS: chlorhexidine gluconate 15ml Cup****oral rinse MM SCH ×2 (07:47→20:00)
[2019-02-03] MEDS: LIDOcaine 5% patch TP SCH (07:47)
[2019-02-03] MEDS: fluticasone nasal spray 16GM bottle NS SCH (07:50)
[2019-02-03] MEDS ORDERED: normal saline 1000ml 250 ML IV PRN (09:38)
[2019-02-03] MEDS ORDERED: heparin 1,000unit/ml 10ml vial 10 ML IV ONE (09:38)
[2019-02-03] MEDS ORDERED: epoetin 20,000 units/ml inj IV ONE (09:40)
[2019-02-03] MEDS: midodrine tablet 2.5 MG TABLET PO PRN (09:40)
[2019-02-03] MEDS ORDERED: heparin 1,000 units/ml 10ml inj HE ONE ×2 (09:45)
--- NOTE | 2019-02-03 18:11 | NUR ---
Patient in room PCU 3023. I have received report from Fausto and had the opportunity to ask questions and assume patient care.
--- NOTE | 2019-02-03 18:20 | NUR ---
Problems reprioritized. Patient report given, questions answered & plan of care reviewed with Afsaneh KENDRICK.
[2019-02-03] MEDS: insulin Lispro (HumaLOG) vial - multi-dose SQ SCH (19:52)
[2019-02-03] MEDS: insulin glargine (Lantus) pen - multi-dose SQ SCH (22:00)
[2019-02-03] MEDS: ondansetron/PF 4mg/2ml inj IV PRN (22:04)
[2019-02-03] MEDS: atorvastatin 20mg tablet PO SCH (22:05)
[2019-02-03] MEDS: donepezil 5mg tablet PO SCH (22:05)
[2019-02-03] MEDS: Melatonin 3mg tablet PO SCH (22:05)
[2019-02-04 02:00] VITALS: BP 99/52
--- NOTE | 2019-02-04 06:05 | NUR ---
Problems reprioritized. Patient report given, questions answered & plan of care reviewed with Fausto KENDRICK.
--- NOTE | 2019-02-04 06:25 | NUR ---
Patient in room PCU 3023. I have received report from Afsaneh KENDRICK and had the opportunity to ask questions and assume patient care.
--- NOTE | 2019-02-04 06:43 | NUR ---
0645 Assessed FSBG, critically low at 49. 0649 Administered 50mL D50 per MD order. 0711 Reassessed FSBG at 152.
[2019-02-04] MEDS: simethicone 80mg chew tab PO PRN (07:00)
[2019-02-04] MEDS: piperacillin/tazo 3.375gm/50ml 50 ML IV SCH ×2 (07:56→16:26)
[2019-02-04] MEDS: LIDOcaine 5% patch TP SCH (08:00)
[2019-02-04] MEDS: chlorhexidine gluconate 15ml Cup****oral rinse MM SCH ×2 (08:00→20:00)
[2019-02-04] MEDS: fluticasone nasal spray 16GM bottle NS SCH (08:00)
[2019-02-04] MEDS: NUT.TX.IMP.RENAL FXN,LAC-REDUC (Nepro) 237 ML VANILLA PO SCH ×3 (08:00→19:26)
[2019-02-04 08:31] LABS: BASOPHILS # (AUTO) 0.1 X10'3 (0-0.2); BASOPHILS % (AUTO) 0.6 % (0-1); EOSINOPHILS # (AUTO) 0.3 X10'3 (0-0.9); EOSINOPHILS % (AUTO) 2.1 % (0-6); HEMATOCRIT 24.3 % (42.0-52.0); HEMOGLOBIN 8.1 g/dl (14.0-17.9); LYMPHOCYTES # (AUTO) 0.9 X10'3 (1.1-4.8); LYMPHOCYTES % (AUTO) 5.6 % (21-51); MEAN CORPUSCULAR HEMOGLOBIN 30.1 PG (27.0-31.0); MEAN CORPUSCULAR HGB CONC 33.2 g/dL (33.0-36.5); MEAN CORPUSCULAR VOLUME 90.5 FL (78-98); MEAN PLATELET VOLUME 8.5 FL (7.4-10.4); MONOCYTES # (AUTO) 0.3 X10'3 (0-0.9); MONOCYTES % (AUTO) 2.1 % (2-12); NEUTROPHILS # (AUTO) 14.4 X10'3 (1.8-7.7); NEUTROPHILS % (AUTO) 89.6 % (42-75); PLATELET COUNT 72 X10'3 (140-440); RED BLOOD COUNT 2.68 X10'6 (4.70-6.10); RED CELL DISTRIBUTION WIDTH 22.3 % (11.5-14.5); WHITE BLOOD COUNT 16.1 X10'3 (4.5-11.0)
[2019-02-04 08:46] LABS: ANION GAP 10 (8-16); BLOOD UREA NITROGEN 38 MG/DL (7-18); CHLORIDE 96 MMOL/L (99-107); CREATININE 3.17 MG/DL (0.60-1.10); GLUCOSE 168 MG/DL (70-104); SODIUM 132 MMOL/L (135-145); TOTAL CARBON DIOXIDE 26.5 MMOL/L (24-32)
[2019-02-04 08:47] LABS: ALBUMIN 3.2 G/DL (3.4-5.0); CALCIUM 8.7 MG/DL (8.5-10.1); PHOSPHORUS 4.1 MG/DL (2.3-4.5); eGFR 20 ML/MIN
[2019-02-04] MEDS: folic acid 1mg tablet PO SCH (09:11)
[2019-02-04] MEDS: docusate sod 100mg capsule PO SCH ×2 (09:11→21:07)
[2019-02-04] MEDS: lactobacillus rhamnosus 10,000 MMU CELLS/CAPSULE PO SCH ×2 (09:11→21:07)
[2019-02-04] MEDS: midodrine 5mg tablet PO SCH ×3 (09:11→21:07)
[2019-02-04] MEDS: finasteride 5mg tablet PO SCH (09:11)
[2019-02-04] MEDS: levoTHYROXINE 75mcg tablet PO SCH (09:11)
[2019-02-04] MEDS: aspirin 81mg tab.chew PO SCH (09:11)
[2019-02-04] MEDS: linagliptin 5mg tablet PO SCH (09:11)
[2019-02-04 09:13] LABS: NUCLEATED RED BLOOD CELLS 1 /100WBC (0-0); TOTAL CELLS COUNTED 100
[2019-02-04 09:14] LABS: ANISOCYTOSIS 3+; PLATELET ESTIMATE DECREASED
[2019-02-04 09:18] LABS: ELLIPTOCYTES FEW; HYPOCHROMASIA 1+; MICROCYTOSIS FEW; POLYCHROMASIA FEW
[2019-02-04] MEDS: insulin Lispro (HumaLOG) vial - multi-dose SQ SCH ×2 (14:07→19:31)
--- NOTE | 2019-02-04 16:00 | NUR ---
Pt straight cathed, 200 ml of clear kathie colored urine drained.
[2019-02-04] MEDS: ondansetron/PF 4mg/2ml inj IV PRN (17:12)
--- NOTE | 2019-02-04 18:30 | NUR ---
Problems reprioritized. Patient report given, questions answered & plan of care reviewed with Johanny Orlando RN.
--- NOTE | 2019-02-04 18:35 | NUR ---
Patient in room PCU 3023. I have received report from LEE KENDRICK and had the opportunity to ask questions and assume patient care.
[2019-02-04 19:00] VITALS: BP 80/50
[2019-02-04] MEDS: donepezil 5mg tablet PO SCH (21:07)
[2019-02-04] MEDS: Melatonin 3mg tablet PO SCH (21:07)
[2019-02-04] MEDS: atorvastatin 20mg tablet PO SCH (21:07)
[2019-02-04] MEDS: HYDROcodone/acetaminophen 5mg/325mg tablet PO PRN (21:11)
[2019-02-04] MEDS: insulin glargine (Lantus) pen - multi-dose SQ SCH (21:54)
[2019-02-04 23:00] VITALS: BP 86/52
[2019-02-05] VITALS (9 sets, daily range): BP systolic 78–106; BP diastolic 50–68
[2019-02-05] MEDS: piperacillin/tazo 3.375gm/50ml 50 ML IV SCH ×3 (00:15→22:44)
[2019-02-05] MEDS: ondansetron/PF 4mg/2ml inj IV PRN ×2 (02:59→22:19)
--- NOTE | 2019-02-05 06:15 | NUR ---
Patient in room PCU 3023. I have received report from AROLDO Mukherjee and had the opportunity to ask questions and assume patient care. Patient complaining of nausea, will contact MD as patient has nothing available at this time. Patient currently resting in bed, bed locked and low, call light in reach, will continue to monitor.
--- NOTE | 2019-02-05 06:29 | NUR ---
Problems reprioritized. Patient report given, questions answered & plan of care reviewed with JOEL KENDRICK.
[2019-02-05] MEDS ORDERED: LORazepam 2 mg/ml vial IV ONE (07:05)
[2019-02-05] MEDS: chlorhexidine gluconate 15ml Cup****oral rinse MM SCH ×2 (07:33→20:00)
[2019-02-05] MEDS: LIDOcaine 5% patch TP SCH (07:33)
[2019-02-05] MEDS: fluticasone nasal spray 16GM bottle NS SCH (07:33)
[2019-02-05 07:58] LABS: BASOPHILS # (AUTO) 0.1 X10'3 (0-0.2); BASOPHILS % (AUTO) 0.8 % (0-1); EOSINOPHILS # (AUTO) 0.5 X10'3 (0-0.9); HEMATOCRIT 22.6 % (42.0-52.0); HEMOGLOBIN 7.5 g/dl (14.0-17.9); LYMPHOCYTES # (AUTO) 0.9 X10'3 (1.1-4.8); LYMPHOCYTES % (AUTO) 5.4 % (21-51); MEAN CORPUSCULAR HEMOGLOBIN 29.9 PG (27.0-31.0); MEAN CORPUSCULAR HGB CONC 33.3 g/dL (33.0-36.5); MEAN CORPUSCULAR VOLUME 89.7 FL (78-98); MEAN PLATELET VOLUME 8.9 FL (7.4-10.4); MONOCYTES # (AUTO) 0.3 X10'3 (0-0.9); MONOCYTES % (AUTO) 1.7 % (2-12); NEUTROPHILS # (AUTO) 14.5 X10'3 (1.8-7.7); NEUTROPHILS % (AUTO) 89.1 % (42-75); PLATELET COUNT 66 X10'3 (140-440); RED BLOOD COUNT 2.52 X10'6 (4.70-6.10); RED CELL DISTRIBUTION WIDTH 22.7 % (11.5-14.5); WHITE BLOOD COUNT 16.3 X10'3 (4.5-11.0)
[2019-02-05 08:11] LABS: ALBUMIN 3.1 G/DL (3.4-5.0); ANION GAP 12 (8-16); BLOOD UREA NITROGEN 54 MG/DL (7-18); CALCIUM 8.8 MG/DL (8.5-10.1); CHLORIDE 93 MMOL/L (99-107); CREATININE 4.14 MG/DL (0.60-1.10); GLUCOSE 146 MG/DL (70-104); MAGNESIUM 2.2 MG/DL (1.5-2.4); PHOSPHORUS 5.4 MG/DL (2.3-4.5); POTASSIUM 4.2 MMOL/L (3.5-5.1); SODIUM 129 MMOL/L (135-145); TOTAL CARBON DIOXIDE 23.7 MMOL/L (24-32); eGFR 14 ML/MIN
[2019-02-05] MEDS: linagliptin 5mg tablet PO SCH (08:49)
[2019-02-05] MEDS: midodrine 5mg tablet PO SCH ×3 (08:49→22:36)
[2019-02-05] MEDS: finasteride 5mg tablet PO SCH (08:50)
[2019-02-05] MEDS: folic acid 1mg tablet PO SCH (08:50)
[2019-02-05] MEDS: docusate sod 100mg capsule PO SCH ×2 (08:50→22:44)
[2019-02-05] MEDS: levoTHYROXINE 75mcg tablet PO SCH (08:50)
[2019-02-05] MEDS: lactobacillus rhamnosus 10,000 MMU CELLS/CAPSULE PO SCH ×2 (08:50→22:33)
[2019-02-05] MEDS: NUT.TX.IMP.RENAL FXN,LAC-REDUC (Nepro) 237 ML VANILLA PO SCH ×3 (08:56→18:00)
[2019-02-05] MEDS: aspirin 81mg tab.chew PO SCH (08:56)
[2019-02-05] MEDS: insulin Lispro (HumaLOG) vial - multi-dose SQ SCH ×2 (09:21→13:31)
--- NOTE | 2019-02-05 11:39 | NUR ---
Reassessment: Pt with 25-50% PO intake of meals and 100% PO intake of ONS. Pt consuming roughly 0216-4841 kcal and 84-112 g protein/day with this trend in PO intake meeting nutrient needs to meet the demand of dialysis. Pt documented with nausea and receiving Zofran PRN. Per MD notes pt possibly to get lap cholecystectomy. LBM 02/04. Will continue to follow. Rec: 1. continue carb controlled/renal diet 2. nepro TIDWM 3. honor pt food preferences 4. monitor need for Phos binder 5. wt w/ HD Addendum: 02/05/19 at [address] Amended: Links added.
[2019-02-05] MEDS ORDERED: normal saline 1000ml 250 ML IV PRN (11:49)
[2019-02-05] MEDS ORDERED: heparin 1,000unit/ml 10ml vial 10 ML IV ONE (11:49)
[2019-02-05] MEDS ORDERED: epoetin 20,000 units/ml inj IV ONE (11:50)
[2019-02-05] MEDS ORDERED: heparin 1,000 units/ml 10ml inj HE ONE ×2 (11:55)
--- NOTE | 2019-02-05 13:30 | NUR ---
Patient's stated that when patient's hgb below 8 they typically transfuse because it is difficult to get blood for him. Patient's hgb was 7.5 this morning, HD nurse was informed and will contact Dr. Toribio to see if he would like to have patient transfused.
[2019-02-05] MEDS: midodrine tablet 2.5 MG TABLET PO PRN (13:51)
--- NOTE | 2019-02-05 17:58 | NUR ---
Dr. Ruffin called to check on [facility] which we still do not have. We were able to [facility] and called the combining machine operator who transferred us to their ED. ED provided another fax number and requested we send the releases so they can get us the information we are requesting.
--- NOTE | 2019-02-05 18:47 | NUR ---
Orientee documentation: I have reviewed and agree with interventions, assessments performed and documented by Keke KENDRICK.
--- NOTE | 2019-02-05 18:47 | NUR ---
Problems reprioritized. Patient report given, questions answered & plan of care reviewed with Aniya KENDRICK.
--- NOTE | 2019-02-05 18:49 | NUR ---
Patient in room PCU 3023. I have received report from Johan KENDRICK and had the opportunity to ask questions and assume patient care.
--- NOTE | 2019-02-05 18:49 | NUR ---
Received FAX of medical records from [facility], placed inside front cover of chart.
[2019-02-05] MEDS: HYDROcodone/acetaminophen 5mg/325mg tablet PO PRN (22:31)
[2019-02-05] MEDS: atorvastatin 20mg tablet PO SCH (22:34)
[2019-02-05] MEDS: donepezil 5mg tablet PO SCH (22:34)
[2019-02-05] MEDS: Melatonin 3mg tablet PO SCH (22:35)
[2019-02-06] MEDS ORDERED: LORazepam 2 mg/ml vial IV ONE
[2019-02-06] MEDS: insulin glargine (Lantus) pen - multi-dose SQ SCH ×2 (00:12→22:24)
[2019-02-06 02:00] VITALS: BP 82/49
[2019-02-06] MEDS: HYDROcodone/acetaminophen 5mg/325mg tablet PO PRN ×2 (02:41→19:28)
[2019-02-06] MEDS: simethicone 80mg chew tab PO PRN (04:56)
[2019-02-06] MEDS: ondansetron/PF 4mg/2ml inj IV PRN ×2 (04:57→12:53)
[2019-02-06 06:00] VITALS: BP 88/52
--- NOTE | 2019-02-06 06:00 | NUR ---
Patient in room PCU 3023. I have received report from Aniya KENDRICK and had the opportunity to ask questions and assume patient care.
[2019-02-06] MEDS: LIDOcaine 5% patch TP SCH (08:00)
[2019-02-06] MEDS: fluticasone nasal spray 16GM bottle NS SCH (08:00)
[2019-02-06] MEDS: levoTHYROXINE 75mcg tablet PO SCH (08:00)
[2019-02-06] MEDS: folic acid 1mg tablet PO SCH (08:00)
[2019-02-06] MEDS: chlorhexidine gluconate 15ml Cup****oral rinse MM SCH (08:00)
[2019-02-06] MEDS ORDERED: proMETHazine 25mg tablet PO ONE (08:00)
[2019-02-06] MEDS: linagliptin 5mg tablet PO SCH (08:00)
[2019-02-06] MEDS: lactobacillus rhamnosus 10,000 MMU CELLS/CAPSULE PO SCH ×2 (08:00→20:49)
[2019-02-06] MEDS: finasteride 5mg tablet PO SCH (08:00)
[2019-02-06] MEDS: NUT.TX.IMP.RENAL FXN,LAC-REDUC (Nepro) 237 ML VANILLA PO SCH ×3 (08:00→18:00)
[2019-02-06] MEDS: docusate sod 100mg capsule PO SCH ×2 (08:00→20:49)
--- NOTE | 2019-02-06 08:00 | NUR ---
patient refused daily weight
[2019-02-06 08:24] LABS: BASOPHILS # (AUTO) 0.1 X10'3 (0-0.2); BASOPHILS % (AUTO) 0.6 % (0-1); EOSINOPHILS # (AUTO) 0.3 X10'3 (0-0.9); EOSINOPHILS % (AUTO) 2.3 % (0-6); HEMATOCRIT 25.4 % (42.0-52.0); HEMOGLOBIN 8.3 g/dl (14.0-17.9); LYMPHOCYTES % (AUTO) 7.3 % (21-51); MEAN CORPUSCULAR HEMOGLOBIN 29.9 PG (27.0-31.0); MEAN CORPUSCULAR HGB CONC 32.6 g/dL (33.0-36.5); MEAN CORPUSCULAR VOLUME 91.7 FL (78-98); MEAN PLATELET VOLUME 8.9 FL (7.4-10.4); MONOCYTES # (AUTO) 0.2 X10'3 (0-0.9); MONOCYTES % (AUTO) 1.7 % (2-12); NEUTROPHILS % (AUTO) 88.1 % (42-75); PLATELET COUNT 59 X10'3 (140-440); RED BLOOD COUNT 2.77 X10'6 (4.70-6.10); RED CELL DISTRIBUTION WIDTH 21.8 % (11.5-14.5); WHITE BLOOD COUNT 13.6 X10'3 (4.5-11.0)
[2019-02-06] MEDS: aspirin 81mg tab.chew PO SCH (08:30)
--- NOTE | 2019-02-06 08:49 | NUR ---
Problems reprioritized. Patient report given, questions answered & plan of care reviewed with Chen KENDRICK.
[2019-02-06 08:58] LABS: GLUCOSE 177 MG/DL (70-104)
[2019-02-06 08:59] LABS: ALBUMIN 3.1 G/DL (3.4-5.0); ANION GAP 12 (8-16); BLOOD UREA NITROGEN 38 MG/DL (7-18); BUN/CREATININE RATIO 12.2 (5.4-32.0); CALCIUM 8.7 MG/DL (8.5-10.1); CHLORIDE 96 MMOL/L (99-107); CREATININE 3.11 MG/DL (0.60-1.10); MAGNESIUM 2.1 MG/DL (1.5-2.4); PHOSPHORUS 4.5 MG/DL (2.3-4.5); POTASSIUM 3.8 MMOL/L (3.5-5.1); SODIUM 134 MMOL/L (135-145); TOTAL CARBON DIOXIDE 26.1 MMOL/L (24-32); eGFR 20 ML/MIN
[2019-02-06] MEDS: midodrine 5mg tablet PO SCH ×3 (09:17→20:50)
[2019-02-06] MEDS: insulin Lispro (HumaLOG) vial - multi-dose SQ SCH ×2 (09:29→19:33)
[2019-02-06] MEDS: piperacillin/tazo 3.375gm/50ml 50 ML IV SCH ×2 (09:42→20:50)
[2019-02-06] MEDS ORDERED: LORazepam 0.5 MG tablet PO PRN (10:05)
[2019-02-06 11:00] VITALS: BP 86/50
[2019-02-06 11:34] LABS: ANISOCYTOSIS 3+; NUCLEATED RED BLOOD CELLS 5 /100WBC (0-0); PLATELET ESTIMATE DECREASED; TOTAL CELLS COUNTED 100
[2019-02-06 11:35] LABS: ELLIPTOCYTES 1+; POLYCHROMASIA 1+; STOMATOCYTES 1+
[2019-02-06 15:00] VITALS: BP 88/52
[2019-02-06] MEDS: proMETHazine 25mg tablet PO PRN (17:31)
[2019-02-06 18:00] VITALS: BP 83/52
--- NOTE | 2019-02-06 18:00 | NUR ---
Problems reprioritized. Patient report given, questions answered & plan of care reviewed with Aniya KENDRICK.
[2019-02-06] MEDS: atorvastatin 20mg tablet PO SCH (20:48)
[2019-02-06] MEDS: donepezil 5mg tablet PO SCH (20:48)
[2019-02-06] MEDS: Melatonin 3mg tablet PO SCH (20:50)
[2019-02-06 22:00] VITALS: BP 90/48
[2019-02-07] MEDS: proMETHazine 25mg tablet PO PRN ×2 (01:19→07:31)
[2019-02-07] MEDS: HYDROcodone/acetaminophen 5mg/325mg tablet PO PRN (01:20)
[2019-02-07 02:00] VITALS: BP 88/50
--- NOTE | 2019-02-07 06:00 | NUR ---
Patient in room PCU 3023. I have received report from Aniya KENDRICK and had the opportunity to ask questions and assume patient care.
--- NOTE | 2019-02-07 06:37 | NUR ---
Problems reprioritized. Patient report given, questions answered & plan of care reviewed with Chen KENDRICK.
[2019-02-07 07:00] VITALS: BP 104/50
[2019-02-07] MEDS: levoTHYROXINE 75mcg tablet PO SCH (07:31)
[2019-02-07] MEDS: piperacillin/tazo 3.375gm/50ml 50 ML IV SCH ×2 (07:31→20:05)
[2019-02-07 07:58] LABS: BASOPHILS # (AUTO) 0.1 X10'3 (0-0.2); BASOPHILS % (AUTO) 0.5 % (0-1); EOSINOPHILS # (AUTO) 0.3 X10'3 (0-0.9); EOSINOPHILS % (AUTO) 2.1 % (0-6); HEMATOCRIT 24.3 % (42.0-52.0); HEMOGLOBIN 8.1 g/dl (14.0-17.9); LYMPHOCYTES # (AUTO) 1.1 X10'3 (1.1-4.8); LYMPHOCYTES % (AUTO) 7.4 % (21-51); MEAN CORPUSCULAR HEMOGLOBIN 30.4 PG (27.0-31.0); MEAN CORPUSCULAR HGB CONC 33.3 g/dL (33.0-36.5); MEAN CORPUSCULAR VOLUME 91.1 FL (78-98); MEAN PLATELET VOLUME 8.7 FL (7.4-10.4); MONOCYTES # (AUTO) 0.2 X10'3 (0-0.9); MONOCYTES % (AUTO) 1.5 % (2-12); NEUTROPHILS # (AUTO) 13.1 X10'3 (1.8-7.7); NEUTROPHILS % (AUTO) 88.5 % (42-75); PLATELET COUNT 62 X10'3 (140-440); RED BLOOD COUNT 2.67 X10'6 (4.70-6.10); RED CELL DISTRIBUTION WIDTH 21.6 % (11.5-14.5); WHITE BLOOD COUNT 14.8 X10'3 (4.5-11.0)
[2019-02-07] MEDS: fluticasone nasal spray 16GM bottle NS SCH (08:00)
[2019-02-07] MEDS: NUT.TX.IMP.RENAL FXN,LAC-REDUC (Nepro) 237 ML VANILLA PO SCH ×3 (08:00→18:46)
[2019-02-07] MEDS: LIDOcaine 5% patch TP SCH (08:00)
[2019-02-07] MEDS: lactobacillus rhamnosus 10,000 MMU CELLS/CAPSULE PO SCH ×2 (08:00→20:10)
[2019-02-07 08:07] LABS: ANION GAP 16 (8-16); BLOOD UREA NITROGEN 62 MG/DL (7-18); BUN/CREATININE RATIO 14.8 (5.4-32.0); CALCIUM 8.6 MG/DL (8.5-10.1); CHLORIDE 93 MMOL/L (99-107); GLUCOSE 149 MG/DL (70-104); MAGNESIUM 2.2 MG/DL (1.5-2.4); PHOSPHORUS 6.1 MG/DL (2.3-4.5); POTASSIUM 4.3 MMOL/L (3.5-5.1); SODIUM 131 MMOL/L (135-145); TOTAL CARBON DIOXIDE 21.8 MMOL/L (24-32); eGFR 14 ML/MIN
[2019-02-07] MEDS: docusate sod 100mg capsule PO SCH ×2 (09:24→20:10)
[2019-02-07] MEDS: finasteride 5mg tablet PO SCH (09:24)
[2019-02-07] MEDS: folic acid 1mg tablet PO SCH (09:24)
[2019-02-07] MEDS: midodrine 5mg tablet PO SCH ×3 (09:24→21:41)
[2019-02-07] MEDS: linagliptin 5mg tablet PO SCH (09:25)
[2019-02-07] MEDS: aspirin 81mg tab.chew PO SCH (09:25)
[2019-02-07 09:26] LABS: ANISOCYTOSIS 3+; NUCLEATED RED BLOOD CELLS 1 /100WBC (0-0); PLATELET ESTIMATE DECREASED; TOTAL CELLS COUNTED 100
[2019-02-07 09:27] LABS: ELLIPTOCYTES 1+; POLYCHROMASIA 2+
[2019-02-07] MEDS: insulin Lispro (HumaLOG) vial - multi-dose SQ SCH ×3 (09:34→20:08)
[2019-02-07 13:32] VITALS: BP 90/52
--- NOTE | 2019-02-07 14:38 | NUR ---
PAGER ID: [phone] MESSAGE: DR. ROJAS, [id number]/JANICE, STATES "FEELING LIKE I AM GETTING TOO MUCH FLUID IN MY LUNGS AGAIN" AUSCULTATED, DID NOT SOUND WET, EXP WH. SAT ON 2L/NC 92-93%. RAPID WAS CALLED ON 02-05-19 R/T THIS. RESHMA [id number]. TY
--- NOTE | 2019-02-07 14:50 | NUR ---
RECEIVED REPORT FROM OMAYRA KENDRICK. ASSUMED CARE AT THIS TIME.AGREE WITH PRIOR ASSESSMENT.
--- NOTE | 2019-02-07 14:54 | NUR ---
Problems reprioritized. Patient report given, questions answered & plan of care reviewed with Brandin RN.
[2019-02-07 15:00] VITALS: BP 100/50
--- NOTE | 2019-02-07 18:25 | NUR ---
Patient in room PCU 3023. I have received report from Brandin KENDRICK and had the opportunity to ask questions and assume patient care. Patient is resting with no immediate needs. Will continue to monitor closely.
--- NOTE | 2019-02-07 18:46 | NUR ---
Problems reprioritized. Patient report given, questions answered & plan of care reviewed with AROLDO HENDERSON.
[2019-02-07 19:00] VITALS: BP 108/50
[2019-02-07] MEDS: atorvastatin 20mg tablet PO SCH (20:09)
[2019-02-07] MEDS: donepezil 5mg tablet PO SCH (20:10)
[2019-02-07] MEDS: Melatonin 3mg tablet PO SCH (21:41)
[2019-02-07] MEDS: insulin glargine (Lantus) pen - multi-dose SQ SCH (21:44)
[2019-02-07 23:00] VITALS: BP 93/50
[2019-02-08] VITALS (9 sets, daily range): BP systolic 78–100; BP diastolic 45–62
--- NOTE | 2019-02-08 06:30 | NUR ---
Problems reprioritized. Patient report given, questions answered & plan of care reviewed with Brandin RN.
--- NOTE | 2019-02-08 06:31 | NUR ---
Patient in room PCU 3023. I have received report from AROLDO HENDERSON and had the opportunity to ask questions and assume patient care.
[2019-02-08 07:20] LABS: BASOPHILS # (AUTO) 0.1 X10'3 (0-0.2); BASOPHILS % (AUTO) 0.7 % (0-1); EOSINOPHILS # (AUTO) 0.5 X10'3 (0-0.9); EOSINOPHILS % (AUTO) 3.3 % (0-6); HEMATOCRIT 23.8 % (42.0-52.0); HEMOGLOBIN 7.9 g/dl (14.0-17.9); LYMPHOCYTES % (AUTO) 6.8 % (21-51); MEAN CORPUSCULAR HEMOGLOBIN 30.2 PG (27.0-31.0); MEAN CORPUSCULAR HGB CONC 33.1 g/dL (33.0-36.5); MEAN CORPUSCULAR VOLUME 91.2 FL (78-98); MEAN PLATELET VOLUME 8.4 FL (7.4-10.4); MONOCYTES # (AUTO) 0.3 X10'3 (0-0.9); MONOCYTES % (AUTO) 1.7 % (2-12); NEUTROPHILS # (AUTO) 13.5 X10'3 (1.8-7.7); NEUTROPHILS % (AUTO) 87.5 % (42-75); PLATELET COUNT 65 X10'3 (140-440); RED BLOOD COUNT 2.61 X10'6 (4.70-6.10); RED CELL DISTRIBUTION WIDTH 22.2 % (11.5-14.5); WHITE BLOOD COUNT 15.4 X10'3 (4.5-11.0)
[2019-02-08 07:29] LABS: ALBUMIN 2.9 G/DL (3.4-5.0); ANION GAP 20 (8-16); BLOOD UREA NITROGEN 84 MG/DL (7-18); BUN/CREATININE RATIO 16.1 (5.4-32.0); CHLORIDE 90 MMOL/L (99-107); CREATININE 5.22 MG/DL (0.60-1.10); GLUCOSE 99 MG/DL (70-104); MAGNESIUM 2.4 MG/DL (1.5-2.4); PHOSPHORUS 8.3 MG/DL (2.3-4.5); POTASSIUM 4.8 MMOL/L (3.5-5.1); SODIUM 127 MMOL/L (135-145); TOTAL CARBON DIOXIDE 17.3 MMOL/L (24-32); eGFR 11 ML/MIN
[2019-02-08 07:53] LABS: ANISOCYTOSIS 3+; NUCLEATED RED BLOOD CELLS 2 /100WBC (0-0); PLATELET ESTIMATE DECREASED; POLYCHROMASIA 2+; TOTAL CELLS COUNTED 100
[2019-02-08 07:54] LABS: ELLIPTOCYTES FEW
[2019-02-08] MEDS ORDERED: normal saline 1000ml 100 ML IV PRN (08:00)
[2019-02-08] MEDS: LIDOcaine 5% patch TP SCH (08:00)
[2019-02-08] MEDS ORDERED: normal saline 1000ml 250 ML IV PRN (08:00)
[2019-02-08] MEDS: fluticasone nasal spray 16GM bottle NS SCH (08:00)
[2019-02-08] MEDS ORDERED: epoetin 20,000 units/ml inj IV ONE (08:00)
[2019-02-08] MEDS ORDERED: heparin 1,000 units/ml 10ml inj HE ONE ×2 (08:00)
[2019-02-08] MEDS: piperacillin/tazo 3.375gm/50ml 50 ML IV SCH ×2 (08:17→19:44)
[2019-02-08] MEDS: NUT.TX.IMP.RENAL FXN,LAC-REDUC (Nepro) 237 ML VANILLA PO SCH ×3 (08:17→18:37)
[2019-02-08] MEDS: folic acid 1mg tablet PO SCH (08:18)
[2019-02-08] MEDS: levoTHYROXINE 75mcg tablet PO SCH (08:18)
[2019-02-08] MEDS: lactobacillus rhamnosus 10,000 MMU CELLS/CAPSULE PO SCH ×2 (08:18→19:44)
[2019-02-08] MEDS: docusate sod 100mg capsule PO SCH ×2 (08:18→19:44)
[2019-02-08] MEDS: midodrine 5mg tablet PO SCH ×3 (08:19→22:19)
[2019-02-08] MEDS: finasteride 5mg tablet PO SCH (08:20)
[2019-02-08] MEDS: linagliptin 5mg tablet PO SCH (08:21)
[2019-02-08] MEDS: aspirin 81mg tab.chew PO SCH (08:21)
[2019-02-08] MEDS: midodrine tablet 2.5 MG TABLET PO PRN (10:52)
--- NOTE | 2019-02-08 11:22 | NUR ---
Reassessment: Pt PO 75% Nepro TID and 25-50% avg meals roughly 100g protein and 1750-1800kcals meeting needs on HD. LBM 02/07 receiving colace. GRIFFIN d/w RN for Phos jason per MD approval given HD and Phos 8.3. Will continue to monitor. Rec: 1. continue carb controlled/renal diet 2. nepro TIDWM 3. honor pt food preferences 4. Phos jason per MD approval; 8.3 today 5. wt w/ HD Addendum: 02/08/19 at [address] Amended: Links added.
--- NOTE | 2019-02-08 18:11 | NUR ---
Problems reprioritized. Patient report given, questions answered & plan of care reviewed with josué jaimes.
[2019-02-08] MEDS: insulin Lispro (HumaLOG) vial - multi-dose SQ SCH (19:29)
--- NOTE | 2019-02-08 19:34 | NUR ---
Patient in room PCU 3023. I have received report from Brandin KENDRICK and had the opportunity to ask questions and assume patient care. Patient eating dinner with at his bedside. No immediate needs, will continue to monitor.
[2019-02-08] MEDS: ondansetron/PF 4mg/2ml inj IV PRN (21:16)
[2019-02-08] MEDS: insulin glargine (Lantus) pen - multi-dose SQ SCH (21:25)
[2019-02-08] MEDS: Melatonin 3mg tablet PO SCH (22:18)
[2019-02-08] MEDS: donepezil 5mg tablet PO SCH (22:19)
[2019-02-08] MEDS: atorvastatin 20mg tablet PO SCH (22:20)
[2019-02-09] VITALS (11 sets, daily range): BP systolic 80–96; BP diastolic 50–58
--- NOTE | 2019-02-09 06:15 | NUR ---
Patient in room PCU 3023. I have received report from AROLDO Narayanan and had the opportunity to ask questions and assume patient care.
--- NOTE | 2019-02-09 06:28 | NUR ---
Problems reprioritized. Patient report given, questions answered & plan of care reviewed with Brandin RN and Elza RN.
[2019-02-09 07:26] LABS: BASOPHILS # (AUTO) 0.1 X10'3 (0-0.2); BASOPHILS % (AUTO) 0.8 % (0-1); EOSINOPHILS # (AUTO) 0.5 X10'3 (0-0.9); EOSINOPHILS % (AUTO) 3.2 % (0-6); HEMATOCRIT 26.9 % (42.0-52.0); HEMOGLOBIN 9.1 g/dl (14.0-17.9); LYMPHOCYTES # (AUTO) 0.9 X10'3 (1.1-4.8); LYMPHOCYTES % (AUTO) 6.4 % (21-51); MEAN CORPUSCULAR HEMOGLOBIN 30.2 PG (27.0-31.0); MEAN CORPUSCULAR HGB CONC 33.9 g/dL (33.0-36.5); MEAN PLATELET VOLUME 8.5 FL (7.4-10.4); MONOCYTES # (AUTO) 0.3 X10'3 (0-0.9); MONOCYTES % (AUTO) 1.9 % (2-12); NEUTROPHILS # (AUTO) 12.4 X10'3 (1.8-7.7); NEUTROPHILS % (AUTO) 87.7 % (42-75); PLATELET COUNT 63 X10'3 (140-440); RED BLOOD COUNT 3.03 X10'6 (4.70-6.10); RED CELL DISTRIBUTION WIDTH 20.7 % (11.5-14.5); WHITE BLOOD COUNT 14.1 X10'3 (4.5-11.0)
[2019-02-09 07:37] LABS: ALBUMIN 2.9 G/DL (3.4-5.0); ANION GAP 16 (8-16); BLOOD UREA NITROGEN 54 MG/DL (7-18); CALCIUM 8.4 MG/DL (8.5-10.1); CHLORIDE 95 MMOL/L (99-107); CREATININE 3.59 MG/DL (0.60-1.10); GLUCOSE 139 MG/DL (70-104); MAGNESIUM 2.1 MG/DL (1.5-2.4); PHOSPHORUS 5.4 MG/DL (2.3-4.5); POTASSIUM 4.1 MMOL/L (3.5-5.1); SODIUM 134 MMOL/L (135-145); TOTAL CARBON DIOXIDE 22.9 MMOL/L (24-32); eGFR 17 ML/MIN
[2019-02-09 07:53] LABS: ANISOCYTOSIS 3+; PLATELET ESTIMATE DECREASED; TOTAL CELLS COUNTED 100
[2019-02-09 07:54] LABS: ELLIPTOCYTES FEW
[2019-02-09 07:55] LABS: NUCLEATED RED BLOOD CELLS 2 /100WBC (0-0)
[2019-02-09] MEDS: NUT.TX.IMP.RENAL FXN,LAC-REDUC (Nepro) 237 ML VANILLA PO SCH ×3 (08:00→18:33)
[2019-02-09] MEDS: fluticasone nasal spray 16GM bottle NS SCH (08:00)
[2019-02-09] MEDS: LIDOcaine 5% patch TP SCH (08:00)
[2019-02-09] MEDS: folic acid 1mg tablet PO SCH (08:07)
[2019-02-09] MEDS: piperacillin/tazo 3.375gm/50ml 50 ML IV SCH ×2 (08:07→19:12)
[2019-02-09] MEDS: midodrine 5mg tablet PO SCH ×3 (08:07→21:23)
[2019-02-09] MEDS: aspirin 81mg tab.chew PO SCH (08:07)
[2019-02-09] MEDS: finasteride 5mg tablet PO SCH (08:07)
[2019-02-09] MEDS: lactobacillus rhamnosus 10,000 MMU CELLS/CAPSULE PO SCH ×2 (08:08→19:12)
[2019-02-09] MEDS: linagliptin 5mg tablet PO SCH (08:08)
[2019-02-09] MEDS: docusate sod 100mg capsule PO SCH ×2 (08:08→19:12)
[2019-02-09] MEDS: levoTHYROXINE 75mcg tablet PO SCH (08:09)
[2019-02-09] MEDS: ondansetron/PF 4mg/2ml inj IV PRN ×2 (08:16→21:33)
[2019-02-09] MEDS: insulin Lispro (HumaLOG) vial - multi-dose SQ SCH ×3 (08:39→19:15)
--- NOTE | 2019-02-09 09:00 | NUR ---
Patient has developed a nosebleed in lt nare, approximately 30 CC of dark red blood. Patient pinching nose and applying ice to forehead and bridge of nose. Bleeding has tapered off a little bit.
--- NOTE | 2019-02-09 11:10 | NUR ---
Patient has approx 60 cc total of dark red blood from lt nare with clots. Patient continues to apply ice. MD notified per AROLDO Ghotra and orders received.
[2019-02-09] MEDS ORDERED: phenylephrine 1% Nasal spray (extra-strength) 15 ML bottle **bronch room NS PRN (11:20)
[2019-02-09] MEDS ORDERED: LIDOcaine 40mg/ml topical solution MM ONE (11:20)
--- NOTE | 2019-02-09 15:17 | NUR ---
SITTING ON EDGE OF BED DANGLING, 02 SAT 70% ON 40% FI02 BIPAP. INCREASED FI02 TO 50%, SAT UP TO 88%.
--- NOTE | 2019-02-09 18:30 | NUR ---
Patient in room PCU 3023. I have received report from Elza KENDRICK and had the opportunity to ask questions and assume patient care.
--- NOTE | 2019-02-09 18:32 | NUR ---
Problems reprioritized. Patient report given, questions answered & plan of care reviewed with AROLDO MON BY AROLDO TURPIN.
--- NOTE | 2019-02-09 18:32 | NUR ---
NEW HIRE assistant professor of sociology: I have reviewed and agree with all interventions, assessments performed and documented by AROLDO TURPIN.
--- NOTE | 2019-02-09 20:16 | NUR ---
Patient had complained to other RN the his IV was burning after Zosyn was started, I went in to assess the IV site and it is WNL, the patient report it was nolonger burning.
[2019-02-09] MEDS: donepezil 5mg tablet PO SCH (21:24)
[2019-02-09] MEDS: Melatonin 3mg tablet PO SCH (21:24)
[2019-02-09] MEDS: atorvastatin 20mg tablet PO SCH (21:25)
[2019-02-09] MEDS: insulin glargine (Lantus) pen - multi-dose SQ SCH (21:29)
[2019-02-10 02:00] VITALS: BP 90/54
--- NOTE | 2019-02-10 06:15 | NUR ---
Patient in room PCU 3023. I have received report from AROLDO Hallman and had the opportunity to ask questions and assume patient care. Patient currently resting in bed, bed locked and low, call light in reach. No acute distress, will continue to monitor.
--- NOTE | 2019-02-10 06:31 | NUR ---
Problems reprioritized. Patient report given, questions answered & plan of care reviewed with Josee & Keke KENDRICK.
[2019-02-10 06:40] LABS: BASOPHILS # (AUTO) 0.1 X10'3 (0-0.2); EOSINOPHILS # (AUTO) 0.5 X10'3 (0-0.9); EOSINOPHILS % (AUTO) 4.3 % (0-6); HEMATOCRIT 25.3 % (42.0-52.0); HEMOGLOBIN 8.5 g/dl (14.0-17.9); LYMPHOCYTES # (AUTO) 0.8 X10'3 (1.1-4.8); LYMPHOCYTES % (AUTO) 6.3 % (21-51); MEAN CORPUSCULAR HEMOGLOBIN 30.1 PG (27.0-31.0); MEAN CORPUSCULAR HGB CONC 33.7 g/dL (33.0-36.5); MEAN CORPUSCULAR VOLUME 89.6 FL (78-98); MEAN PLATELET VOLUME 8.3 FL (7.4-10.4); MONOCYTES # (AUTO) 0.2 X10'3 (0-0.9); MONOCYTES % (AUTO) 1.6 % (2-12); NEUTROPHILS # (AUTO) 10.4 X10'3 (1.8-7.7); NEUTROPHILS % (AUTO) 86.8 % (42-75); PLATELET COUNT 81 X10'3 (140-440); RED BLOOD COUNT 2.83 X10'6 (4.70-6.10)
[2019-02-10 06:52] VITALS: BP 90/56
[2019-02-10 06:58] LABS: ALBUMIN 2.9 G/DL (3.4-5.0); ANION GAP 16 (8-16); BLOOD UREA NITROGEN 74 MG/DL (7-18); BUN/CREATININE RATIO 16.1 (5.4-32.0); CALCIUM 8.3 MG/DL (8.5-10.1); CHLORIDE 93 MMOL/L (99-107); CREATININE 4.59 MG/DL (0.60-1.10); GLUCOSE 112 MG/DL (70-104); PHOSPHORUS 6.7 MG/DL (2.3-4.5); POTASSIUM 4.4 MMOL/L (3.5-5.1); SODIUM 132 MMOL/L (135-145); TOTAL CARBON DIOXIDE 23.1 MMOL/L (24-32); eGFR 13 ML/MIN
[2019-02-10 07:34] LABS: TOTAL CELLS COUNTED 100
[2019-02-10 07:35] LABS: NUCLEATED RED BLOOD CELLS 1 /100WBC (0-0)
[2019-02-10 07:37] LABS: ANISOCYTOSIS 3+; ELLIPTOCYTES FEW; PLATELET ESTIMATE DECREASED
[2019-02-10 07:38] LABS: TOXIC GRANULATION 2+
[2019-02-10] MEDS: ondansetron/PF 4mg/2ml inj IV PRN ×2 (07:53→19:16)
[2019-02-10] MEDS ORDERED: docusate sod 100mg capsule PO SCH (08:00)
[2019-02-10] MEDS: LIDOcaine 5% patch TP SCH (08:00)
[2019-02-10] MEDS: insulin Lispro (HumaLOG) vial - multi-dose SQ SCH (08:00)
[2019-02-10] MEDS: fluticasone nasal spray 16GM bottle NS SCH (08:00)
[2019-02-10] MEDS: piperacillin/tazo 3.375gm/50ml 50 ML IV SCH ×2 (08:06→19:55)
[2019-02-10] MEDS: levoTHYROXINE 75mcg tablet PO SCH (08:08)
[2019-02-10] MEDS: finasteride 5mg tablet PO SCH (08:08)
[2019-02-10] MEDS: linagliptin 5mg tablet PO SCH (08:08)
[2019-02-10] MEDS: aspirin 81mg tab.chew PO SCH (08:09)
[2019-02-10] MEDS: folic acid 1mg tablet PO SCH (08:09)
[2019-02-10] MEDS: midodrine 5mg tablet PO SCH ×3 (08:09→22:03)
[2019-02-10] MEDS: NUT.TX.IMP.RENAL FXN,LAC-REDUC (Nepro) 237 ML VANILLA PO SCH ×3 (08:09→18:00)
[2019-02-10] MEDS: docusate sod 100mg capsule PO SCH ×2 (08:09→19:55)
[2019-02-10] MEDS: lactobacillus rhamnosus 10,000 MMU CELLS/CAPSULE PO SCH ×2 (08:09→19:55)
[2019-02-10] MEDS ORDERED: epoetin 20,000 units/ml inj IV ONE (09:00)
[2019-02-10] MEDS ORDERED: albumin (human) 25% 100ml IV 100 ML IV PRN (09:00)
[2019-02-10 11:00] VITALS: BP_SYST 77; BP_SYST 85; BP_DIAS 47; BP_DIAS 53
[2019-02-10] MEDS: midodrine tablet 2.5 MG TABLET PO PRN (11:11)
[2019-02-10] MEDS: HYDROcodone/acetaminophen 5mg/325mg tablet PO PRN (12:03)
[2019-02-10] MEDS ORDERED: heparin 1,000 units/ml 10ml inj HE ONE ×2 (12:40)
[2019-02-10 15:25] VITALS: BP 94/53
[2019-02-10 18:18] VITALS: BP 92/52
--- NOTE | 2019-02-10 18:18 | NUR ---
Problems reprioritized. Patient report given, questions answered & plan of care reviewed with AROLDO Thomas. Patient is currently resting in bed, bed locked and low, call light in reach. Stable at shift change.
--- NOTE | 2019-02-10 18:29 | NUR ---
Orientee documentation: I have reviewed and agree with all interventions, assessments performed and documented by Keke KENDRICK. Orientee Medication Administration: For this medication-pass time frame, all medication were reviewed, dispensed, administered and documented per hospital policy by Keke KENDRICK. Constructive criticism given as needed.
[2019-02-10] MEDS: insulin glargine (Lantus) pen - multi-dose SQ SCH (21:13)
[2019-02-10] MEDS: proMETHazine 25mg tablet PO PRN (21:27)
[2019-02-10 22:00] VITALS: BP 100/52
[2019-02-10] MEDS: Melatonin 3mg tablet PO SCH (22:02)
[2019-02-10] MEDS: atorvastatin 20mg tablet PO SCH (22:03)
[2019-02-10] MEDS: donepezil 5mg tablet PO SCH (22:03)
--- NOTE | 2019-02-10 22:44 | NUR ---
Patient in room PCU 3023C. I have received report from AROLDO Tripp and had the opportunity to ask questions and assume patient care.
[2019-02-11 02:00] VITALS: BP 106/56
--- NOTE | 2019-02-11 03:07 | NUR ---
Bladder scanned patient and 200 mL in bladder. Patient denies complaints. Will continue to monitor.
[2019-02-11] MEDS: simethicone 80mg chew tab PO PRN (05:10)
[2019-02-11 05:59] LABS: BASOPHILS # (AUTO) 0.1 X10'3 (0-0.2); BASOPHILS % (AUTO) 0.7 % (0-1); EOSINOPHILS # (AUTO) 0.6 X10'3 (0-0.9); EOSINOPHILS % (AUTO) 4.2 % (0-6); HEMATOCRIT 24.8 % (42.0-52.0); HEMOGLOBIN 8.4 g/dl (14.0-17.9); LYMPHOCYTES # (AUTO) 0.9 X10'3 (1.1-4.8); MEAN CORPUSCULAR HEMOGLOBIN 30.1 PG (27.0-31.0); MEAN CORPUSCULAR HGB CONC 33.8 g/dL (33.0-36.5); MEAN CORPUSCULAR VOLUME 89.1 FL (78-98); MEAN PLATELET VOLUME 8.3 FL (7.4-10.4); MONOCYTES # (AUTO) 0.2 X10'3 (0-0.9); MONOCYTES % (AUTO) 1.5 % (2-12); NEUTROPHILS # (AUTO) 11.5 X10'3 (1.8-7.7); NEUTROPHILS % (AUTO) 86.6 % (42-75); PLATELET COUNT 88 X10'3 (140-440); RED BLOOD COUNT 2.78 X10'6 (4.70-6.10); RED CELL DISTRIBUTION WIDTH 20.8 % (11.5-14.5); WHITE BLOOD COUNT 13.3 X10'3 (4.5-11.0)
[2019-02-11 06:18] LABS: ANION GAP 13 (8-16); BLOOD UREA NITROGEN 54 MG/DL (7-18); BUN/CREATININE RATIO 15.9 (5.4-32.0); CALCIUM 8.8 MG/DL (8.5-10.1); CHLORIDE 95 MMOL/L (99-107); GLUCOSE 158 MG/DL (70-104); PHOSPHORUS 4.7 MG/DL (2.3-4.5); POTASSIUM 4.4 MMOL/L (3.5-5.1); SODIUM 133 MMOL/L (135-145); TOTAL CARBON DIOXIDE 24.9 MMOL/L (24-32); eGFR 18 ML/MIN
--- NOTE | 2019-02-11 06:33 | NUR ---
Problems reprioritized. Patient report given, questions answered & plan of care reviewed with AROLDO Arias.
--- NOTE | 2019-02-11 06:33 | NUR ---
Patient in room PCU 3023. I have received report from malena moses and had the opportunity to ask questions and assume patient care.
[2019-02-11 07:11] VITALS: BP 100/60
[2019-02-11 08:00] LABS: ANISOCYTOSIS 3+; PLATELET ESTIMATE DECREASED
[2019-02-11] MEDS: LIDOcaine 5% patch TP SCH (08:00)
[2019-02-11] MEDS: fluticasone nasal spray 16GM bottle NS SCH (08:00)
[2019-02-11 08:01] LABS: ELLIPTOCYTES 1+; SCHISTOCYTES FEW
[2019-02-11] MEDS: piperacillin/tazo 3.375gm/50ml 50 ML IV SCH ×2 (08:19→19:06)
[2019-02-11] MEDS: aspirin 81mg tab.chew PO SCH (08:20)
[2019-02-11] MEDS: lactobacillus rhamnosus 10,000 MMU CELLS/CAPSULE PO SCH ×2 (08:20→21:22)
[2019-02-11] MEDS: midodrine 5mg tablet PO SCH ×3 (08:20→21:23)
[2019-02-11] MEDS: docusate sod 100mg capsule PO SCH ×2 (08:20→21:22)
[2019-02-11] MEDS: linagliptin 5mg tablet PO SCH (08:20)
[2019-02-11] MEDS: folic acid 1mg tablet PO SCH (08:21)
[2019-02-11] MEDS: finasteride 5mg tablet PO SCH (08:21)
[2019-02-11] MEDS: levoTHYROXINE 75mcg tablet PO SCH (08:21)
[2019-02-11] MEDS: ondansetron/PF 4mg/2ml inj IV PRN ×2 (08:25→21:13)
[2019-02-11] MEDS: NUT.TX.IMP.RENAL FXN,LAC-REDUC (Nepro) 237 ML VANILLA PO SCH ×3 (08:39→18:01)
[2019-02-11] MEDS: insulin Lispro (HumaLOG) vial - multi-dose SQ SCH ×2 (09:27→19:08)
[2019-02-11 11:00] VITALS: BP 95/54
--- NOTE | 2019-02-11 12:07 | NUR ---
Reassessment: Surgeon recommends continuing bile drainage rather than cholecystectomy. Pt continues HD. PO intake fluctuates with documentation of 50% and 100% PO intake of meals with 50%, 75%, and 100% PO intake of ONS; pt likely meeting nutrient needs. Per [facility] notes 02/08 unstageable PU to sacrum appears to be resolved or resolving with no notable opening LBM 02/11. Will continue to follow. Rec: 1. continue carb controlled/renal diet 2. nepro TIDWM 3. honor pt food preferences 4. Glenda gomez per approval; 4.7 today 5. wt w/ HD Addendum: 02/11/19 at [address] Amended: Links added.
--- NOTE | 2019-02-11 13:49 | NUR ---
UNABLE TO COVER 1200 BLOOD SUGAR. NO CARB COUNT, AND BS 121 WHICH DOES NOT REQ INSULIN COVERAGE
[2019-02-11 16:00] VITALS: BP 86/49
[2019-02-11 18:00] VITALS: BP 90/55
--- NOTE | 2019-02-11 18:37 | NUR ---
Problems reprioritized. Patient report given, questions answered & plan of care reviewed with MINERVA KENDRICK.
--- NOTE | 2019-02-11 18:38 | NUR ---
Patient in room PCU 3023. I have received report from AROLDO Arias and had the opportunity to ask questions and assume patient care.
[2019-02-11] MEDS: insulin glargine (Lantus) pen - multi-dose SQ SCH (21:20)
[2019-02-11] MEDS: donepezil 5mg tablet PO SCH (21:22)
[2019-02-11] MEDS: atorvastatin 20mg tablet PO SCH (21:22)
[2019-02-11] MEDS: Melatonin 3mg tablet PO SCH (21:23)
[2019-02-11 22:00] VITALS: BP 96/58
[2019-02-12 02:00] VITALS: BP 98/58
[2019-02-12 05:41] LABS: BASOPHILS # (AUTO) 0.1 X10'3 (0-0.2); BASOPHILS % (AUTO) 0.8 % (0-1); EOSINOPHILS # (AUTO) 0.7 X10'3 (0-0.9); EOSINOPHILS % (AUTO) 5.2 % (0-6); HEMATOCRIT 23.4 % (42.0-52.0); HEMOGLOBIN 7.8 g/dl (14.0-17.9); LYMPHOCYTES # (AUTO) 0.9 X10'3 (1.1-4.8); LYMPHOCYTES % (AUTO) 6.9 % (21-51); MEAN CORPUSCULAR HGB CONC 33.5 g/dL (33.0-36.5); MEAN CORPUSCULAR VOLUME 89.7 FL (78-98); MEAN PLATELET VOLUME 9.5 FL (7.4-10.4); MONOCYTES # (AUTO) 0.2 X10'3 (0-0.9); MONOCYTES % (AUTO) 1.6 % (2-12); NEUTROPHILS # (AUTO) 10.7 X10'3 (1.8-7.7); NEUTROPHILS % (AUTO) 85.5 % (42-75); PLATELET COUNT 91 X10'3 (140-440); RED CELL DISTRIBUTION WIDTH 21.7 % (11.5-14.5); WHITE BLOOD COUNT 12.5 X10'3 (4.5-11.0)
[2019-02-12 05:49] LABS: ALANINE AMINOTRANSFERASE 18 U/L (12-78); ALBUMIN 2.8 G/DL (3.4-5.0); ALBUMIN/GLOBULIN RATIO 0.8 (1.1-1.5); ALKALINE PHOSPHATASE 111 IU/L (46-116); ANION GAP 16 (8-16); ASPARTATE AMINO TRANSFERASE 16 U/L (10-37); BILIRUBIN,TOTAL 0.8 MG/DL (0.1-1.0); BLOOD UREA NITROGEN 72 MG/DL (7-18); CALCIUM 7.8 MG/DL (8.5-10.1); CHLORIDE 93 MMOL/L (99-107); CREATININE 4.51 MG/DL (0.60-1.10); GLUCOSE 119 MG/DL (70-104); MAGNESIUM 1.9 MG/DL (1.5-2.4); PHOSPHORUS 5.7 MG/DL (2.3-4.5); POTASSIUM 4.7 MMOL/L (3.5-5.1); SODIUM 131 MMOL/L (135-145); TOTAL PROTEIN 6.2 G/DL (6.4-8.2); eGFR 13 ML/MIN
[2019-02-12 06:00] VITALS: BP 86/50
--- NOTE | 2019-02-12 06:41 | NUR ---
Problems reprioritized. Patient report given, questions answered & plan of care reviewed with AROLDO Breen.
--- NOTE | 2019-02-12 06:45 | NUR ---
Patient in room PCU 3023. I have received report from Tray KENDRICK and had the opportunity to ask questions and assume patient care.
[2019-02-12] MEDS ORDERED: epoetin 20,000 units/ml inj IV ONE (06:50)
[2019-02-12] MEDS ORDERED: albumin (human) 25% 100ml IV 100 ML IV PRN (06:50)
[2019-02-12] MEDS ORDERED: heparin 1,000 units/ml 10ml inj HE ONE ×2 (06:55)
[2019-02-12 07:18] LABS: ANISOCYTOSIS 3+; NUCLEATED RED BLOOD CELLS 1 /100WBC (0-0); PLATELET ESTIMATE DECREASED; TOTAL CELLS COUNTED 100
[2019-02-12 07:19] LABS: ELLIPTOCYTES 1+; POLYCHROMASIA 1+; TOXIC GRANULATION 1+
[2019-02-12] MEDS: fluticasone nasal spray 16GM bottle NS SCH (08:00)
[2019-02-12] MEDS: LIDOcaine 5% patch TP SCH (08:00)
[2019-02-12] MEDS: piperacillin/tazo 3.375gm/50ml 50 ML IV SCH (08:08)
[2019-02-12] MEDS: ondansetron/PF 4mg/2ml inj IV PRN ×2 (08:09→20:56)
[2019-02-12 08:10] LABS: HBSAG SCREEN Negative (Negative)
[2019-02-12] MEDS: docusate sod 100mg capsule PO SCH ×2 (08:21→20:48)
[2019-02-12] MEDS: midodrine 5mg tablet PO SCH ×3 (08:21→20:47)
[2019-02-12] MEDS: folic acid 1mg tablet PO SCH (08:21)
[2019-02-12] MEDS: lactobacillus rhamnosus 10,000 MMU CELLS/CAPSULE PO SCH ×2 (08:21→20:48)
[2019-02-12] MEDS: levoTHYROXINE 75mcg tablet PO SCH (08:22)
[2019-02-12] MEDS: aspirin 81mg tab.chew PO SCH (08:22)
[2019-02-12] MEDS: NUT.TX.IMP.RENAL FXN,LAC-REDUC (Nepro) 237 ML VANILLA PO SCH ×3 (08:22→18:00)
[2019-02-12] MEDS: linagliptin 5mg tablet PO SCH (08:22)
[2019-02-12] MEDS: finasteride 5mg tablet PO SCH (08:22)
[2019-02-12] MEDS: midodrine tablet 2.5 MG TABLET PO PRN (09:44)
--- NOTE | 2019-02-12 09:46 | NUR ---
LEBRON mederos given now per customer sales consultant instruction.
--- NOTE | 2019-02-12 10:48 | NUR ---
patient on dialysis, dialysis nurse at the bedside
[2019-02-12 11:11] VITALS: BP 78/46
[2019-02-12] MEDS: acetaminophen 325mg tablet PO PRN (12:40)
[2019-02-12 15:15] VITALS: BP 85/50
[2019-02-12 18:00] VITALS: BP 80/50
--- NOTE | 2019-02-12 18:39 | NUR ---
Patient in room PCU 3023. I have received report from Nuha KENDRICK and had the opportunity to ask questions and assume patient care.
--- NOTE | 2019-02-12 19:00 | NUR ---
Poor appetite f/dinner meal, eating less than 15 carbs. BS: 120 AC. Insulin therapy held.
[2019-02-12] MEDS: insulin Lispro (HumaLOG) vial - multi-dose SQ SCH (19:31)
[2019-02-12] MEDS: donepezil 5mg tablet PO SCH (20:48)
[2019-02-12] MEDS: Melatonin 3mg tablet PO SCH (20:48)
[2019-02-12] MEDS: HYDROcodone/acetaminophen 5mg/325mg tablet PO PRN (20:49)
[2019-02-12] MEDS: atorvastatin 20mg tablet PO SCH (20:49)
[2019-02-12 22:00] VITALS: BP 90/48
[2019-02-12] MEDS: insulin glargine (Lantus) pen - multi-dose SQ SCH (22:09)
[2019-02-12 22:57] LABS: FERRITIN 1427 NG/ML (26-388)
[2019-02-12 23:09] LABS: % IRON SATURATION 31 % (11-46); IRON 70 UG/DL (53-167); TOTAL IRON BINDING CAPACITY 226 UG/DL (259-388)
[2019-02-13 02:00] VITALS: BP 93/46
[2019-02-13] MEDS: HYDROcodone/acetaminophen 5mg/325mg tablet PO PRN ×2 (02:09→19:31)
[2019-02-13 06:00] VITALS: BP 92/49
[2019-02-13 06:05] LABS: BASOPHILS # (AUTO) 0.1 X10'3 (0-0.2); BASOPHILS % (AUTO) 0.7 % (0-1); EOSINOPHILS # (AUTO) 0.6 X10'3 (0-0.9); HEMATOCRIT 23.1 % (42.0-52.0); HEMOGLOBIN 7.8 g/dl (14.0-17.9); LYMPHOCYTES # (AUTO) 0.7 X10'3 (1.1-4.8); LYMPHOCYTES % (AUTO) 6.4 % (21-51); MEAN CORPUSCULAR HEMOGLOBIN 29.9 PG (27.0-31.0); MEAN CORPUSCULAR HGB CONC 33.7 g/dL (33.0-36.5); MEAN CORPUSCULAR VOLUME 88.7 FL (78-98); MEAN PLATELET VOLUME 8.2 FL (7.4-10.4); MONOCYTES # (AUTO) 0.2 X10'3 (0-0.9); MONOCYTES % (AUTO) 1.9 % (2-12); NEUTROPHILS # (AUTO) 9.8 X10'3 (1.8-7.7); PLATELET COUNT 87 X10'3 (140-440); RED CELL DISTRIBUTION WIDTH 20.7 % (11.5-14.5); WHITE BLOOD COUNT 11.4 X10'3 (4.5-11.0)
--- NOTE | 2019-02-13 06:29 | NUR ---
Problems reprioritized. Patient report given, questions answered & plan of care reviewed with Nuha KENDRICK.
[2019-02-13 06:33] LABS: ALANINE AMINOTRANSFERASE 21 U/L (12-78); ALBUMIN 2.9 G/DL (3.4-5.0); ALBUMIN/GLOBULIN RATIO 0.9 (1.1-1.5); ALKALINE PHOSPHATASE 100 IU/L (46-116); ANION GAP 12 (8-16); ASPARTATE AMINO TRANSFERASE 15 U/L (10-37); BILIRUBIN,TOTAL 0.8 MG/DL (0.1-1.0); BLOOD UREA NITROGEN 49 MG/DL (7-18); BUN/CREATININE RATIO 14.5 (5.4-32.0); CALCIUM 8.1 MG/DL (8.5-10.1); CHLORIDE 96 MMOL/L (99-107); CREATININE 3.38 MG/DL (0.60-1.10); GLUCOSE 145 MG/DL (70-104); PHOSPHORUS 4.3 MG/DL (2.3-4.5); POTASSIUM 4.3 MMOL/L (3.5-5.1); SODIUM 134 MMOL/L (135-145); TOTAL CARBON DIOXIDE 25.8 MMOL/L (24-32); TOTAL PROTEIN 6.3 G/DL (6.4-8.2); eGFR 18 ML/MIN
[2019-02-13 06:49] LABS: ANISOCYTOSIS 3+; PLATELET ESTIMATE DECREASED
[2019-02-13 06:50] LABS: ELLIPTOCYTES 1+; POIKILOCYTOSIS FEW; POLYCHROMASIA 2+; TEAR DROP CELLS FEW
[2019-02-13] MEDS: fluticasone nasal spray 16GM bottle NS SCH (08:00)
[2019-02-13] MEDS: LIDOcaine 5% patch TP SCH (08:00)
[2019-02-13] MEDS: NUT.TX.IMP.RENAL FXN,LAC-REDUC (Nepro) 237 ML VANILLA PO SCH ×3 (08:01→18:00)
[2019-02-13] MEDS: docusate sod 100mg capsule PO SCH ×2 (08:09→20:00)
[2019-02-13] MEDS: lactobacillus rhamnosus 10,000 MMU CELLS/CAPSULE PO SCH ×2 (08:09→20:48)
[2019-02-13] MEDS: folic acid 1mg tablet PO SCH (08:10)
[2019-02-13] MEDS: levoTHYROXINE 75mcg tablet PO SCH (08:10)
[2019-02-13] MEDS: aspirin 81mg tab.chew PO SCH (08:10)
[2019-02-13] MEDS: finasteride 5mg tablet PO SCH (08:10)
[2019-02-13] MEDS: midodrine 5mg tablet PO SCH ×3 (08:10→20:48)
[2019-02-13] MEDS: linagliptin 5mg tablet PO SCH (08:10)
[2019-02-13] MEDS: ondansetron/PF 4mg/2ml inj IV PRN ×2 (08:10→19:29)
[2019-02-13 11:00] VITALS: BP 86/42
[2019-02-13] MEDS: levoFLOXACIN 250mg tablet PO SCH (11:35)
--- NOTE | 2019-02-13 11:39 | NUR ---
Administered scheduled ABX per primary RN. Pt requesting lozenge for sore throat, not available at this time, paged pharmacy to send medication.
[2019-02-13] MEDS: benzocaine/menthol oral lozeng 1 EACH BOX MM PRN ×2 (13:37→19:30)
[2019-02-13] MEDS: insulin Lispro (HumaLOG) vial - multi-dose SQ SCH ×2 (13:40→19:22)
[2019-02-13 15:00] VITALS: BP 95/50
[2019-02-13 18:00] VITALS: BP 100/55
--- NOTE | 2019-02-13 18:46 | NUR ---
Patient in room PCU 3023. I have received report from Nuha KENDRICK and had the opportunity to ask questions and assume patient care.
[2019-02-13] MEDS: atorvastatin 20mg tablet PO SCH (20:48)
[2019-02-13] MEDS: donepezil 5mg tablet PO SCH (20:48)
[2019-02-13] MEDS: Melatonin 3mg tablet PO SCH (20:49)
[2019-02-13 22:00] VITALS: BP 92/49
--- NOTE | 2019-02-13 22:00 | NUR ---
Pt's bladder scanned on his request f/240mls. Not straight cathed at this time as this amt does not meet criteria of >300mls.
[2019-02-13] MEDS: insulin glargine (Lantus) pen - multi-dose SQ SCH (23:02)
[2019-02-14] MEDS: HYDROcodone/acetaminophen 5mg/325mg tablet PO PRN ×2 (00:51→19:14)
[2019-02-14 02:00] VITALS: BP 93/50
[2019-02-14 05:59] LABS: BASOPHILS # (AUTO) 0.1 X10'3 (0-0.2); BASOPHILS % (AUTO) 1.1 % (0-1); EOSINOPHILS # (AUTO) 0.6 X10'3 (0-0.9); HEMATOCRIT 22.8 % (42.0-52.0); HEMOGLOBIN 7.6 g/dl (14.0-17.9); LYMPHOCYTES % (AUTO) 8.8 % (21-51); MEAN CORPUSCULAR HEMOGLOBIN 30.1 PG (27.0-31.0); MEAN CORPUSCULAR HGB CONC 33.4 g/dL (33.0-36.5); MEAN CORPUSCULAR VOLUME 89.9 FL (78-98); MEAN PLATELET VOLUME 8.3 FL (7.4-10.4); MONOCYTES # (AUTO) 0.2 X10'3 (0-0.9); MONOCYTES % (AUTO) 1.6 % (2-12); NEUTROPHILS # (AUTO) 9.8 X10'3 (1.8-7.7); NEUTROPHILS % (AUTO) 83.5 % (42-75); PLATELET COUNT 86 X10'3 (140-440); RED BLOOD COUNT 2.53 X10'6 (4.70-6.10); RED CELL DISTRIBUTION WIDTH 21.2 % (11.5-14.5); WHITE BLOOD COUNT 11.7 X10'3 (4.5-11.0)
[2019-02-14 06:00] VITALS: BP 92/54
--- NOTE | 2019-02-14 06:00 | NUR ---
Patient in room [facility] 3023. I have received report from SHELLY Kwan and had the opportunity to ask questions and assume patient care. Addendum: 02/14/19 at 0637 by Ceci Crawford RN Patient in room [place] [address]. I have received report from AROLDO Kwan and had the opportunity to ask questions and assume patient care. Pt is awake and oriented. Will continue to monitor.
--- NOTE | 2019-02-14 06:18 | NUR ---
Problems reprioritized. Patient report given, questions answered & plan of care reviewed with Ceci RN.
[2019-02-14 06:21] LABS: ALANINE AMINOTRANSFERASE 20 U/L (12-78); ALBUMIN 2.9 G/DL (3.4-5.0); ALBUMIN/GLOBULIN RATIO 0.9 (1.1-1.5); ALKALINE PHOSPHATASE 112 IU/L (46-116); ANION GAP 13 (8-16); ASPARTATE AMINO TRANSFERASE 16 U/L (10-37); BILIRUBIN,TOTAL 0.7 MG/DL (0.1-1.0); BLOOD UREA NITROGEN 68 MG/DL (7-18); BUN/CREATININE RATIO 15.4 (5.4-32.0); CHLORIDE 95 MMOL/L (99-107); CREATININE 4.41 MG/DL (0.60-1.10); GLUCOSE 106 MG/DL (70-104); PHOSPHORUS 5.7 MG/DL (2.3-4.5); POTASSIUM 4.9 MMOL/L (3.5-5.1); SODIUM 132 MMOL/L (135-145); TOTAL CARBON DIOXIDE 24.3 MMOL/L (24-32); TOTAL PROTEIN 6.3 G/DL (6.4-8.2); eGFR 13 ML/MIN
[2019-02-14] MEDS: ondansetron/PF 4mg/2ml inj IV PRN ×2 (07:32→21:26)
[2019-02-14] MEDS: levoTHYROXINE 75mcg tablet PO SCH (07:37)
[2019-02-14] MEDS: folic acid 1mg tablet PO SCH (07:39)
[2019-02-14] MEDS: lactobacillus rhamnosus 10,000 MMU CELLS/CAPSULE PO SCH ×2 (07:39→19:06)
[2019-02-14] MEDS: midodrine 5mg tablet PO SCH ×3 (07:39→21:49)
[2019-02-14] MEDS: docusate sod 100mg capsule PO SCH ×3 (07:39→19:06)
[2019-02-14] MEDS: linagliptin 5mg tablet PO SCH (07:39)
[2019-02-14] MEDS: NUT.TX.IMP.RENAL FXN,LAC-REDUC (Nepro) 237 ML VANILLA PO SCH ×3 (07:40→18:00)
[2019-02-14] MEDS: LIDOcaine 5% patch TP SCH (07:40)
[2019-02-14] MEDS: finasteride 5mg tablet PO SCH (07:40)
[2019-02-14] MEDS: fluticasone nasal spray 16GM bottle NS SCH (07:41)
[2019-02-14] MEDS: aspirin 81mg tab.chew PO SCH (08:00)
[2019-02-14 11:00] VITALS: BP 90/50
[2019-02-14] MEDS: levoFLOXACIN 250mg tablet PO SCH (11:51)
[2019-02-14 15:00] VITALS: BP 100/55
--- NOTE | 2019-02-14 18:18 | NUR ---
Patient in room PCU 3021K. I have received report from AROLDO Ornelas and had the opportunity to ask questions and assume patient care. Patient awake for bedside report and stable at this time. in room. Will continue to monitor closely.
--- NOTE | 2019-02-14 18:50 | NUR ---
Problems reprioritized. Patient report given, questions answered & plan of care reviewed with AROLDO Thomas.
[2019-02-14 19:00] VITALS: BP 84/50
--- NOTE | 2019-02-14 19:00 | NUR ---
Patient refused evening meal. 1700 blood glucose level 143; noon 143. No short-acting insulin coverage tonight. Will continue to monitor closely.
[2019-02-14] MEDS: insulin glargine (Lantus) pen - multi-dose SQ SCH (21:43)
[2019-02-14] MEDS: atorvastatin 20mg tablet PO SCH (21:54)
[2019-02-14] MEDS: Melatonin 3mg tablet PO SCH (21:54)
[2019-02-14] MEDS: donepezil 5mg tablet PO SCH (21:55)
[2019-02-14 23:00] VITALS: BP 92/50
[2019-02-15] VITALS (7 sets, daily range): BP systolic 12–159; BP diastolic 49–56
[2019-02-15] MEDS: HYDROcodone/acetaminophen 5mg/325mg tablet PO PRN (03:00)
--- NOTE | 2019-02-15 03:59 | NUR ---
Bladder scanned patient at 0045 and showed 396mL. Patient denies complaints of discomfort or urgency at this time. Per miscellaneous nursing order, patient was straight cathed with 10 nigerian coude catheter. Actual volume 125mL brown urine. Will continue to monitor closely.
[2019-02-15 05:30] LABS: BASOPHILS # (AUTO) 0.1 X10'3 (0-0.2); EOSINOPHILS # (AUTO) 0.9 X10'3 (0-0.9); EOSINOPHILS % (AUTO) 5.8 % (0-6); HEMOGLOBIN 7.4 g/dl (14.0-17.9); LYMPHOCYTES # (AUTO) 1.2 X10'3 (1.1-4.8); LYMPHOCYTES % (AUTO) 8.2 % (21-51); MEAN CORPUSCULAR HEMOGLOBIN 30.2 PG (27.0-31.0); MEAN CORPUSCULAR HGB CONC 33.6 g/dL (33.0-36.5); MEAN CORPUSCULAR VOLUME 89.9 FL (78-98); MEAN PLATELET VOLUME 8.7 FL (7.4-10.4); MONOCYTES # (AUTO) 0.2 X10'3 (0-0.9); MONOCYTES % (AUTO) 1.4 % (2-12); NEUTROPHILS # (AUTO) 12.4 X10'3 (1.8-7.7); NEUTROPHILS % (AUTO) 83.6 % (42-75); PLATELET COUNT 97 X10'3 (140-440); RED BLOOD COUNT 2.43 X10'6 (4.70-6.10); RED CELL DISTRIBUTION WIDTH 20.9 % (11.5-14.5); WHITE BLOOD COUNT 14.9 X10'3 (4.5-11.0)
[2019-02-15 05:40] LABS: HEMATOCRIT 21.9 % (42.0-52.0)
--- NOTE | 2019-02-15 05:41 | NUR ---
Critical Hct- 21.9 expected result. Down from 22.8 02/14/19. MD aware of consistently low H&H. sub arc operator notified and charted in interventions.
[2019-02-15 05:49] LABS: ALANINE AMINOTRANSFERASE 20 U/L (12-78); ALBUMIN/GLOBULIN RATIO 0.9 (1.1-1.5); ALKALINE PHOSPHATASE 130 IU/L (46-116); ANION GAP 16 (8-16); ASPARTATE AMINO TRANSFERASE 20 U/L (10-37); BILIRUBIN,TOTAL 0.6 MG/DL (0.1-1.0); BLOOD UREA NITROGEN 85 MG/DL (7-18); BUN/CREATININE RATIO 16.1 (5.4-32.0); CALCIUM 8.6 MG/DL (8.5-10.1); CHLORIDE 95 MMOL/L (99-107); CREATININE 5.28 MG/DL (0.60-1.10); GLUCOSE 160 MG/DL (70-104); MAGNESIUM 2.1 MG/DL (1.5-2.4); PHOSPHORUS 6.7 MG/DL (2.3-4.5); POTASSIUM 5.7 MMOL/L (3.5-5.1); SODIUM 133 MMOL/L (135-145); TOTAL CARBON DIOXIDE 21.7 MMOL/L (24-32); TOTAL PROTEIN 6.4 G/DL (6.4-8.2); eGFR 11 ML/MIN
--- NOTE | 2019-02-15 06:07 | NUR ---
Problems reprioritized. Patient report given, questions answered & plan of care reviewed with AROLDO Ornelas.
--- NOTE | 2019-02-15 06:28 | NUR ---
Patient in room PCU 3023. I have received report from AROLDO Thomas and had the opportunity to ask questions and assume patient care. Pt is sleeping, will continue to monitor.
[2019-02-15 07:09] LABS: ANISOCYTOSIS 3+; ELLIPTOCYTES FEW; MICROCYTOSIS 1+; PLATELET ESTIMATE DECREASED
[2019-02-15] MEDS: folic acid 1mg tablet PO SCH (07:11)
[2019-02-15] MEDS: linagliptin 5mg tablet PO SCH (07:11)
[2019-02-15] MEDS: lactobacillus rhamnosus 10,000 MMU CELLS/CAPSULE PO SCH ×2 (07:11→20:18)
[2019-02-15] MEDS: finasteride 5mg tablet PO SCH (07:11)
[2019-02-15] MEDS: midodrine 5mg tablet PO SCH ×3 (07:11→20:19)
[2019-02-15] MEDS: levoTHYROXINE 75mcg tablet PO SCH (07:11)
[2019-02-15] MEDS: ondansetron/PF 4mg/2ml inj IV PRN ×2 (07:11→20:19)
[2019-02-15] MEDS: fluticasone nasal spray 16GM bottle NS SCH (07:13)
[2019-02-15] MEDS: LIDOcaine 5% patch TP SCH (07:13)
[2019-02-15] MEDS: docusate sod 100mg capsule PO SCH ×2 (07:13→20:19)
[2019-02-15] MEDS ORDERED: epoetin 20,000 units/ml inj IV ONE (08:00)
[2019-02-15] MEDS ORDERED: heparin 1,000unit/ml 10ml vial 10 ML IV ONE (08:00)
[2019-02-15] MEDS ORDERED: heparin 1,000 units/ml 10ml inj HE ONE ×2 (08:00)
[2019-02-15] MEDS ORDERED: normal saline 1000ml 250 ML IV PRN (08:00)
[2019-02-15] MEDS: NUT.TX.IMP.RENAL FXN,LAC-REDUC (Nepro) 237 ML VANILLA PO SCH ×3 (08:00→18:00)
[2019-02-15] MEDS: aspirin 81mg tab.chew PO SCH (08:34)
[2019-02-15] MEDS: midodrine tablet 2.5 MG TABLET PO PRN (10:25)
[2019-02-15] MEDS ORDERED: vancomycin/NS 1 GM ADD-VANTAGE 250 ML IV ONE (12:10)
[2019-02-15] MEDS: cefTAZidime inj 2 GM in normal saline 100ml IV soln 100 ML IV SCH (16:02)
--- NOTE | 2019-02-15 18:25 | NUR ---
Problems reprioritized. Patient report given, questions answered & plan of care reviewed with AROLDO Thomas.
--- NOTE | 2019-02-15 18:56 | NUR ---
Patient in room PCU 3029o. I have received report from AROLDO Ornelas and had the opportunity to ask questions and assume patient care. Patient awake for bedside report and stable at this time. at bedside. Will continue to monitor closely.
[2019-02-15] MEDS: insulin Lispro (HumaLOG) vial - multi-dose SQ SCH (19:20)
[2019-02-15] MEDS: donepezil 5mg tablet PO SCH (20:18)
[2019-02-15] MEDS: Melatonin 3mg tablet PO SCH (20:18)
[2019-02-15] MEDS: atorvastatin 20mg tablet PO SCH (20:19)
--- NOTE | 2019-02-15 21:00 | NUR ---
Per patient request, will not bladder scan patient until morning of 02/16/2019.
[2019-02-15] MEDS: insulin glargine (Lantus) pen - multi-dose SQ SCH (22:25)
--- NOTE | 2019-02-15 23:00 | NUR ---
Patient's grand daughter came up to floor with out clearance from myself. Told family it was past visiting hours and to come back when patient is alert tomorrow morning. Patient stated he was sleeping and, "didn't want any visitors." Son (Xander?) of patient then came up, again, without clearance demanding to see his father. I said that was fine, but there are three other patients in the room and to please be quiet. He came out of the room and met in the hallway outside of the room and he was clearly very upset and shaking from anger, I presume. He was upset that, "nothing has been done so far and he wanted to know the source of infection and why he hasn't had a chest x-ray and CT." He continued to relay recent past events regarding his fathers recent hospital stays. I acknowledged that he was upset and his father's health and safety is in my best interest. I told him that the CXR, CT of abdomen and pelvis, blood cultures, and gall bladder cultures were all collected during day shift on 02/15/19. He began to calm down and I told him that for the safety and well being of the patient's that it is extremely important to call before and get clearance before coming up to the floor. He was apologetic and left close to 2320.
[2019-02-16 03:00] VITALS: BP 88/48
[2019-02-16 05:58] LABS: BASOPHILS # (AUTO) 0.1 X10'3 (0-0.2); BASOPHILS % (AUTO) 0.9 % (0-1); EOSINOPHILS # (AUTO) 0.7 X10'3 (0-0.9); EOSINOPHILS % (AUTO) 7.5 % (0-6); HEMATOCRIT 24.1 % (42.0-52.0); HEMOGLOBIN 8.2 g/dl (14.0-17.9); LYMPHOCYTES # (AUTO) 0.6 X10'3 (1.1-4.8); MEAN CORPUSCULAR HEMOGLOBIN 30.6 PG (27.0-31.0); MEAN CORPUSCULAR HGB CONC 34.1 g/dL (33.0-36.5); MEAN CORPUSCULAR VOLUME 89.7 FL (78-98); MEAN PLATELET VOLUME 8.5 FL (7.4-10.4); MONOCYTES # (AUTO) 0.1 X10'3 (0-0.9); MONOCYTES % (AUTO) 1.5 % (2-12); NEUTROPHILS # (AUTO) 7.6 X10'3 (1.8-7.7); NEUTROPHILS % (AUTO) 83.1 % (42-75); PLATELET COUNT 86 X10'3 (140-440); RED BLOOD COUNT 2.69 X10'6 (4.70-6.10); RED CELL DISTRIBUTION WIDTH 19.8 % (11.5-14.5); WHITE BLOOD COUNT 9.1 X10'3 (4.5-11.0)
[2019-02-16 06:00] VITALS: BP 115/50
[2019-02-16 06:18] LABS: ALANINE AMINOTRANSFERASE 21 U/L (12-78); ALBUMIN 2.8 G/DL (3.4-5.0); ALBUMIN/GLOBULIN RATIO 0.8 (1.1-1.5); ALKALINE PHOSPHATASE 112 IU/L (46-116); ANION GAP 13 (8-16); ASPARTATE AMINO TRANSFERASE 21 U/L (10-37); BILIRUBIN,TOTAL 0.8 MG/DL (0.1-1.0); BLOOD UREA NITROGEN 45 MG/DL (7-18); BUN/CREATININE RATIO 12.8 (5.4-32.0); CALCIUM 8.1 MG/DL (8.5-10.1); CHLORIDE 99 MMOL/L (99-107); CREATININE 3.51 MG/DL (0.60-1.10); GLUCOSE 82 MG/DL (70-104); MAGNESIUM 1.9 MG/DL (1.5-2.4); PHOSPHORUS 4.4 MG/DL (2.3-4.5); POTASSIUM 4.1 MMOL/L (3.5-5.1); SODIUM 136 MMOL/L (135-145); TOTAL CARBON DIOXIDE 24.5 MMOL/L (24-32); TOTAL PROTEIN 6.1 G/DL (6.4-8.2); eGFR 17 ML/MIN
--- NOTE | 2019-02-16 06:31 | NUR ---
Problems reprioritized. Patient report given, questions answered & plan of care reviewed with AROLDO Ornelas.
[2019-02-16 06:43] LABS: ANISOCYTOSIS 2+; MICROCYTOSIS 1+; PLATELET ESTIMATE DECREASED
[2019-02-16] MEDS: ondansetron/PF 4mg/2ml inj IV PRN ×2 (07:38→20:46)
[2019-02-16] MEDS: levoTHYROXINE 75mcg tablet PO SCH (07:39)
[2019-02-16] MEDS: fluticasone nasal spray 16GM bottle NS SCH (08:00)
[2019-02-16] MEDS: LIDOcaine 5% patch TP SCH (08:00)
[2019-02-16] MEDS: lactobacillus rhamnosus 10,000 MMU CELLS/CAPSULE PO SCH ×2 (08:09→21:05)
[2019-02-16] MEDS: docusate sod 100mg capsule PO SCH ×2 (08:09→21:05)
[2019-02-16] MEDS: aspirin 81mg tab.chew PO SCH (08:09)
[2019-02-16] MEDS: linagliptin 5mg tablet PO SCH (08:10)
[2019-02-16] MEDS: NUT.TX.IMP.RENAL FXN,LAC-REDUC (Nepro) 237 ML VANILLA PO SCH ×3 (08:10→18:00)
[2019-02-16] MEDS: folic acid 1mg tablet PO SCH (08:10)
[2019-02-16] MEDS: midodrine 5mg tablet PO SCH ×3 (08:10→21:24)
[2019-02-16] MEDS: finasteride 5mg tablet PO SCH (08:10)
[2019-02-16 11:00] VITALS: BP 102/56
[2019-02-16] MEDS: cefTAZidime inj 2 GM in normal saline 100ml IV soln 100 ML IV SCH (12:10)
--- NOTE | 2019-02-16 12:59 | NUR ---
Ladi not given per Dr Moreau. Not a scheduled med.
--- NOTE | 2019-02-16 14:36 | NUR ---
Reassessment: Pt with recent decline in PO intake with documented 0% dinner 02/14-lunch 02/15 however documented with 100% PO intake at dinner 02/15 and 75% at breakfast this morning. Pt with 0% PO intake of ONS 02/15 however with 100% intake of ONS with breakfast this morning. Attempted to visit pt at bedside to discuss appetite and food preferences however pt sleeping and did not wake with verbal cues. Per physical assessment pt with nausea receiving Zofran PRN. LBM 02/15. Will continue to follow. Rec: 1. continue carb controlled/renal diet 2. nepro TIDWM 3. honor pt food preferences 4. Glenda gomez per MD approval; WNL today 5. wt w/ HD Addendum: 02/16/19 at [address] Amended: Links added.
[2019-02-16 15:00] VITALS: BP 101/56
[2019-02-16 18:50] VITALS: BP 90/55
--- NOTE | 2019-02-16 18:52 | NUR ---
Problems reprioritized. Patient report given, questions answered & plan of care reviewed with AROLDO Rodriguez.
[2019-02-16] MEDS: insulin glargine (Lantus) pen - multi-dose SQ SCH (21:00)
[2019-02-16] MEDS: atorvastatin 20mg tablet PO SCH (21:04)
[2019-02-16] MEDS: Melatonin 3mg tablet PO SCH (21:05)
[2019-02-16] MEDS: donepezil 5mg tablet PO SCH (21:05)
[2019-02-16 23:00] VITALS: BP 98/55
[2019-02-17 03:00] VITALS: BP 90/58
[2019-02-17 05:50] LABS: BASOPHILS # (AUTO) 0.1 X10'3 (0-0.2); BASOPHILS % (AUTO) 1.2 % (0-1); EOSINOPHILS # (AUTO) 0.7 X10'3 (0-0.9); EOSINOPHILS % (AUTO) 6.6 % (0-6); HEMATOCRIT 23.8 % (42.0-52.0); LYMPHOCYTES # (AUTO) 0.8 X10'3 (1.1-4.8); LYMPHOCYTES % (AUTO) 7.4 % (21-51); MEAN CORPUSCULAR HGB CONC 33.4 g/dL (33.0-36.5); MEAN CORPUSCULAR VOLUME 89.7 FL (78-98); MEAN PLATELET VOLUME 8.5 FL (7.4-10.4); MONOCYTES # (AUTO) 0.1 X10'3 (0-0.9); MONOCYTES % (AUTO) 1.2 % (2-12); NEUTROPHILS # (AUTO) 9.5 X10'3 (1.8-7.7); NEUTROPHILS % (AUTO) 83.6 % (42-75); PLATELET COUNT 96 X10'3 (140-440); RED BLOOD COUNT 2.65 X10'6 (4.70-6.10); RED CELL DISTRIBUTION WIDTH 20.7 % (11.5-14.5); WHITE BLOOD COUNT 11.3 X10'3 (4.5-11.0)
[2019-02-17 05:58] LABS: ALANINE AMINOTRANSFERASE 20 U/L (12-78); ALBUMIN 2.9 G/DL (3.4-5.0); ALBUMIN/GLOBULIN RATIO 0.9 (1.1-1.5); ALKALINE PHOSPHATASE 113 IU/L (46-116); ANION GAP 17 (8-16); ASPARTATE AMINO TRANSFERASE 19 U/L (10-37); BILIRUBIN,TOTAL 0.7 MG/DL (0.1-1.0); BLOOD UREA NITROGEN 62 MG/DL (7-18); BUN/CREATININE RATIO 14.1 (5.4-32.0); CALCIUM 8.4 MG/DL (8.5-10.1); CHLORIDE 95 MMOL/L (99-107); GLUCOSE 111 MG/DL (70-104); MAGNESIUM 1.9 MG/DL (1.5-2.4); PHOSPHORUS 5.1 MG/DL (2.3-4.5); POTASSIUM 4.8 MMOL/L (3.5-5.1); SODIUM 135 MMOL/L (135-145); TOTAL CARBON DIOXIDE 23.3 MMOL/L (24-32); TOTAL PROTEIN 6.2 G/DL (6.4-8.2); eGFR 13 ML/MIN
--- NOTE | 2019-02-17 06:24 | NUR ---
Problems reprioritized. Patient report given, questions answered & plan of care reviewed with MARY. Addendum: 02/17/19 at 0624 by Yared Gonzalez RN Amended: Links added.
--- NOTE | 2019-02-17 06:30 | NUR ---
Patient in room PCU 3023. I have received report from Michael KENDRICK and had the opportunity to ask questions and assume patient care.
--- NOTE | 2019-02-17 06:32 | NUR ---
Patient in room PCU 3023. I have received report from Michael KENDRICK and had the opportunity to ask questions and assume patient care.
[2019-02-17 07:00] VITALS: BP 92/64
[2019-02-17 07:10] LABS: ANISOCYTOSIS 3+; MICROCYTOSIS 1+; PLATELET ESTIMATE DECREASED
[2019-02-17 07:11] LABS: ELLIPTOCYTES FEW
--- NOTE | 2019-02-17 07:15 | NUR ---
Pt refusing AM accgray, primary RN Philly christie.
[2019-02-17] MEDS ORDERED: heparin 1,000unit/ml 10ml vial 10 ML IV ONE (07:37)
[2019-02-17] MEDS ORDERED: normal saline 1000ml 250 ML IV PRN (07:37)
[2019-02-17] MEDS: fluticasone nasal spray 16GM bottle NS SCH (07:46)
[2019-02-17] MEDS: ondansetron/PF 4mg/2ml inj IV PRN (07:46)
[2019-02-17] MEDS: LIDOcaine 5% patch TP SCH (08:00)
[2019-02-17] MEDS ORDERED: epoetin 20,000 units/ml inj SQ ONE (08:00)
[2019-02-17] MEDS ORDERED: heparin 1,000 units/ml 10ml inj HE ONE ×2 (08:45→10:15)
[2019-02-17] MEDS: folic acid 1mg tablet PO SCH (08:48)
[2019-02-17] MEDS: aspirin 81mg tab.chew PO SCH (08:48)
[2019-02-17] MEDS: levoTHYROXINE 75mcg tablet PO SCH (08:49)
[2019-02-17] MEDS: midodrine 5mg tablet PO SCH ×3 (08:49→20:37)
[2019-02-17] MEDS: linagliptin 5mg tablet PO SCH (08:49)
[2019-02-17] MEDS: finasteride 5mg tablet PO SCH (08:49)
[2019-02-17] MEDS: docusate sod 100mg capsule PO SCH ×2 (08:49→20:37)
[2019-02-17] MEDS: lactobacillus rhamnosus 10,000 MMU CELLS/CAPSULE PO SCH ×2 (08:49→20:37)
[2019-02-17] MEDS: NUT.TX.IMP.RENAL FXN,LAC-REDUC (Nepro) 237 ML VANILLA PO SCH ×3 (08:53→18:00)
[2019-02-17] MEDS: midodrine tablet 2.5 MG TABLET PO PRN (09:27)
[2019-02-17] MEDS: HYDROcodone/acetaminophen 5mg/325mg tablet PO PRN (10:27)
[2019-02-17 11:00] VITALS: BP 91/51
--- NOTE | 2019-02-17 11:34 | NUR ---
Pt. has not met protocol his entire admission thus far; now refusing glucose checks. Addendum: 02/17/19 at 1136 by Elaina Thorpe RN Amended: Links added.
--- NOTE | 2019-02-17 13:56 | NUR ---
Olga PICC RN for new PIV placement. Pt. c/o burning and is refusing IV meds.
[2019-02-17] MEDS ORDERED: FLUC100T9 PO (14:52)
[2019-02-17 15:00] VITALS: BP 85/40
[2019-02-17] MEDS: fluconazole 100mg tablet PO SCH (16:54)
--- NOTE | 2019-02-17 17:51 | NUR ---
Orientee documentation: I have reviewed and agree with interventions, assessments performed and documented by Latoya KENDRIKC. Orientee Medication Administration: For this medication-pass time frame, medication were reviewed, dispensed, administered and documented per hospital policy by Latoya KENDRICK
--- NOTE | 2019-02-17 18:30 | NUR ---
Problems reprioritized. Patient report given, questions answered & plan of care reviewed with Lady KENDRICK.
--- NOTE | 2019-02-17 18:45 | NUR ---
Patient in room PCU 3023. I have received report from Philly KENDRICK and Elaina KENDRICK and had the opportunity to ask questions and assume patient care.
[2019-02-17 19:00] VITALS: BP 94/48
[2019-02-17] MEDS: atorvastatin 20mg tablet PO SCH (20:37)
[2019-02-17] MEDS: Melatonin 3mg tablet PO SCH (20:38)
[2019-02-17] MEDS: insulin glargine (Lantus) pen - multi-dose SQ SCH (21:00)
--- NOTE | 2019-02-17 21:28 | NUR ---
Lab called, patient's type and screen for blood expires tonight and the new order isn't in place until 02/19. Called Dr. Wayne, telephone orders to order new type and screen stat.
[2019-02-17 23:00] VITALS: BP 100/46
[2019-02-18 03:00] VITALS: BP 92/52
--- NOTE | 2019-02-18 03:04 | NUR ---
Patient refused his 0300 vanco trough lab draw. He would like to have it done with morning labs.
[2019-02-18 06:00] VITALS: BP 88/57
--- NOTE | 2019-02-18 06:32 | NUR ---
Problems reprioritized. Patient report given, questions answered & plan of care reviewed with Philly KENDRICK and Elaina KENDRICK.
--- NOTE | 2019-02-18 06:34 | NUR ---
Patient in room PCU 3023. I have received report from Lady KENDRICK and had the opportunity to ask questions and assume patient care.
[2019-02-18] MEDS: LIDOcaine 5% patch TP SCH (08:00)
[2019-02-18] MEDS: NUT.TX.IMP.RENAL FXN,LAC-REDUC (Nepro) 237 ML VANILLA PO SCH ×3 (08:00→18:00)
[2019-02-18] MEDS: fluticasone nasal spray 16GM bottle NS SCH (08:00)
[2019-02-18] MEDS: aspirin 81mg tab.chew PO SCH (09:39)
[2019-02-18] MEDS: lactobacillus rhamnosus 10,000 MMU CELLS/CAPSULE PO SCH ×2 (09:39→22:49)
[2019-02-18] MEDS: folic acid 1mg tablet PO SCH (09:39)
[2019-02-18] MEDS: docusate sod 100mg capsule PO SCH ×2 (09:39→22:46)
[2019-02-18] MEDS: levoTHYROXINE 75mcg tablet PO SCH (09:39)
[2019-02-18] MEDS: fluconazole 100mg tablet PO SCH (09:39)
[2019-02-18] MEDS: linagliptin 5mg tablet PO SCH (09:39)
[2019-02-18] MEDS: finasteride 5mg tablet PO SCH (09:39)
[2019-02-18] MEDS: midodrine 5mg tablet PO SCH ×3 (09:39→22:47)
--- NOTE | 2019-02-18 10:05 | NUR ---
Called re: reques to speak withem before or after his 10:00-11:00am rounds and to follow up about the hospital bed being ordered. Unable to reach, left a voicemail stating it is for a non-emergent call and left a callback number.
--- NOTE | 2019-02-18 10:19 | NUR ---
returned call stating hospital is yet to arrrive and that she needs to speak with manager rn case Emily regarding that. She will be in the hospital to see Dr. Moreau after his rounds.
[2019-02-18 11:00] VITALS: BP 96/65
[2019-02-18] MEDS ORDERED: normal saline 1000ml 250 ML IV PRN (11:51)
[2019-02-18] MEDS ORDERED: normal saline 1000ml 100 ML IV PRN (11:51)
[2019-02-18 12:36] LABS: BASOPHILS % (AUTO) 0.4 % (0-1); EOSINOPHILS # (AUTO) 0.6 X10'3 (0-0.9); EOSINOPHILS % (AUTO) 6.4 % (0-6); HEMATOCRIT 22.8 % (42.0-52.0); HEMOGLOBIN 7.7 g/dl (14.0-17.9); LYMPHOCYTES # (AUTO) 0.9 X10'3 (1.1-4.8); LYMPHOCYTES % (AUTO) 9.4 % (21-51); MEAN CORPUSCULAR HEMOGLOBIN 30.8 PG (27.0-31.0); MEAN CORPUSCULAR HGB CONC 33.8 g/dL (33.0-36.5); MEAN CORPUSCULAR VOLUME 91.1 FL (78-98); MEAN PLATELET VOLUME 8.5 FL (7.4-10.4); MONOCYTES # (AUTO) 0.1 X10'3 (0-0.9); MONOCYTES % (AUTO) 1.1 % (2-12); NEUTROPHILS # (AUTO) 7.8 X10'3 (1.8-7.7); NEUTROPHILS % (AUTO) 82.7 % (42-75); PLATELET COUNT 90 X10'3 (140-440); RED BLOOD COUNT 2.51 X10'6 (4.70-6.10); RED CELL DISTRIBUTION WIDTH 20.5 % (11.5-14.5); WHITE BLOOD COUNT 9.4 X10'3 (4.5-11.0)
[2019-02-18 13:09] LABS: ANISOCYTOSIS 3+; NUCLEATED RED BLOOD CELLS 1 /100WBC (0-0); PLATELET ESTIMATE DECREASED; TOTAL CELLS COUNTED 100
[2019-02-18 13:10] LABS: ELLIPTOCYTES 1+
[2019-02-18 13:11] LABS: POLYCHROMASIA FEW
[2019-02-18 15:00] VITALS: BP 95/59
[2019-02-18] MEDS: bisacodyl 10mg suppository rectal RC PRN (15:16)
--- NOTE | 2019-02-18 16:34 | NUR ---
Called via provided home phone # [phone] and informed [address] Moreau will be in on 02/19 at 8am to see pt. Also provided with requested H/H results from [facility].
--- NOTE | 2019-02-18 17:49 | NUR ---
Orientee documentation: I have reviewed and agree with interventions, assessments performed and documented by Latoya KENDRICK. Orientee Medication Administration: For this medication-pass time frame, medication were reviewed, dispensed, administered and documented per hospital policy by Latoya KENDRICK
--- NOTE | 2019-02-18 18:10 | NUR ---
Patient in room PCU 3023. I have received report from Philly KENDRICK and Elaina KENDRICK and had the opportunity to ask questions and assume patient care.
--- NOTE | 2019-02-18 18:14 | NUR ---
Problems reprioritized. Patient report given, questions answered & plan of care reviewed with Lady KENDRICK.
[2019-02-18 19:00] VITALS: BP 105/88
[2019-02-18] MEDS: proMETHazine 25mg tablet PO PRN (20:31)
[2019-02-18] MEDS: insulin glargine (Lantus) pen - multi-dose SQ SCH (21:00)
[2019-02-18] MEDS: Melatonin 3mg tablet PO SCH (22:48)
[2019-02-18] MEDS: atorvastatin 20mg tablet PO SCH (22:49)
[2019-02-18] MEDS: simethicone 80mg chew tab PO PRN (22:52)
[2019-02-18 23:00] VITALS: BP 94/58
[2019-02-18] MEDS: HYDROcodone/acetaminophen 5mg/325mg tablet PO PRN (23:05)
[2019-02-19 03:00] VITALS: BP 88/50
[2019-02-19 06:00] VITALS: BP 90/50
--- NOTE | 2019-02-19 06:00 | NUR ---
Patient in room PCU 3023. I have received report from Lady KENDRICK and had the opportunity to ask questions and assume patient care.
--- NOTE | 2019-02-19 06:35 | NUR ---
Problems reprioritized. Patient report given, questions answered & plan of care reviewed with Chen KENDRICK.
[2019-02-19] MEDS: aspirin 81mg tab.chew PO SCH (07:54)
[2019-02-19] MEDS: linagliptin 5mg tablet PO SCH (07:54)
[2019-02-19] MEDS: folic acid 1mg tablet PO SCH (07:54)
[2019-02-19] MEDS: proMETHazine 25mg tablet PO PRN (07:54)
[2019-02-19] MEDS: fluconazole 100mg tablet PO SCH (07:54)
[2019-02-19] MEDS: lactobacillus rhamnosus 10,000 MMU CELLS/CAPSULE PO SCH (07:54)
[2019-02-19] MEDS: midodrine 5mg tablet PO SCH ×2 (07:54→14:04)
[2019-02-19] MEDS: docusate sod 100mg capsule PO SCH (07:54)
[2019-02-19] MEDS: levoTHYROXINE 75mcg tablet PO SCH (07:54)
[2019-02-19] MEDS: finasteride 5mg tablet PO SCH (07:54)
[2019-02-19] MEDS: fluticasone nasal spray 16GM bottle NS SCH (07:57)
[2019-02-19] MEDS: NUT.TX.IMP.RENAL FXN,LAC-REDUC (Nepro) 237 ML VANILLA PO SCH ×2 (07:58→13:00)
[2019-02-19] MEDS: LIDOcaine 5% patch TP SCH (07:58)
[2019-02-19] MEDS ORDERED: heparin 1,000 units/ml 10ml inj HE ONE ×2 (09:15)
[2019-02-19] MEDS: midodrine tablet 2.5 MG TABLET PO PRN (10:08)
[2019-02-19 10:46] VITALS: BP 88/50
[2019-02-19 10:57] VITALS: BP 80/46
[2019-02-19] MEDS: HYDROcodone/acetaminophen 5mg/325mg tablet PO PRN ×2 (11:08→14:05)
[2019-02-19 11:09] VITALS: BP_SYST 82; BP_DIAS 42; BP_DIAS 48
[2019-02-19 11:40] VITALS: BP 85/52
[2019-02-19 12:53] LABS: BASOPHILS # (AUTO) 0.1 X10'3 (0-0.2); BASOPHILS % (AUTO) 0.9 % (0-1); EOSINOPHILS # (AUTO) 0.7 X10'3 (0-0.9); EOSINOPHILS % (AUTO) 5.9 % (0-6); HEMATOCRIT 25.4 % (42.0-52.0); HEMOGLOBIN 8.5 g/dl (14.0-17.9); LYMPHOCYTES # (AUTO) 0.8 X10'3 (1.1-4.8); LYMPHOCYTES % (AUTO) 6.9 % (21-51); MEAN CORPUSCULAR HEMOGLOBIN 30.6 PG (27.0-31.0); MEAN CORPUSCULAR HGB CONC 33.7 g/dL (33.0-36.5); MEAN CORPUSCULAR VOLUME 90.9 FL (78-98); MEAN PLATELET VOLUME 8.3 FL (7.4-10.4); MONOCYTES # (AUTO) 0.2 X10'3 (0-0.9); MONOCYTES % (AUTO) 1.5 % (2-12); NEUTROPHILS # (AUTO) 9.4 X10'3 (1.8-7.7); NEUTROPHILS % (AUTO) 84.8 % (42-75); PLATELET COUNT 93 X10'3 (140-440); RED BLOOD COUNT 2.79 X10'6 (4.70-6.10); WHITE BLOOD COUNT 11.1 X10'3 (4.5-11.0)
[2019-02-19 13:04] LABS: ALANINE AMINOTRANSFERASE 19 U/L (12-78); ALBUMIN 3.2 G/DL (3.4-5.0); ALBUMIN/GLOBULIN RATIO 0.9 (1.1-1.5); ALKALINE PHOSPHATASE 120 IU/L (46-116); ANION GAP 9 (8-16); ASPARTATE AMINO TRANSFERASE 17 U/L (10-37); BILIRUBIN,TOTAL 0.8 MG/DL (0.1-1.0); BLOOD UREA NITROGEN 25 MG/DL (7-18); BUN/CREATININE RATIO 10.9 (5.4-32.0); CALCIUM 8.6 MG/DL (8.5-10.1); CHLORIDE 99 MMOL/L (99-107); GLUCOSE 118 MG/DL (70-104); POTASSIUM 3.7 MMOL/L (3.5-5.1); SODIUM 137 MMOL/L (135-145); TOTAL CARBON DIOXIDE 28.6 MMOL/L (24-32); TOTAL PROTEIN 6.7 G/DL (6.4-8.2); eGFR 28 ML/MIN
[2019-02-19 13:35] LABS: ANISOCYTOSIS 2+; PLATELET ESTIMATE DECREASED
[2019-02-19 13:36] LABS: ELLIPTOCYTES 1+; POIKILOCYTOSIS FEW
--- NOTE | 2019-02-19 16:35 | NUR ---
Patient discharged stable to home with family. No PIV present. R chest TDC patent and used by chief quality officer today. No tele box present on patient. Discharge instructions given to patient and spouse in written and verbal form. Both verbalized understanding. Patient has appointment with PCP January. All personal belongings returned to patient. Patient wheeled out by staff via wheelchair to private vehicle accompanied by family.
== END 2019-02-19 16:34 | disposition home health service (06) | DRG 871 ==
LOC: ER 17:46 → PCU 3S 20:47 → EDBEDREQSVC 21:21 → CMPBEDREQ 22:51
PROVIDERS: ADMIT Internal Medicine Critical Care Medicine; ATTEND Internal Medicine Critical Care Medicine
PROC: 5A1D70Z Performance of Urinary Filtration, Intermittent, Less than 6 Hours Per Day (ICD-10-PCS; 2019-01-21)
PROC: 30233N1 Transfusion of Nonautologous Red Blood Cells into Peripheral Vein, Percutaneous Approach (ICD-10-PCS; 2019-01-23)
PROC: 5A1D70Z Performance of Urinary Filtration, Intermittent, Less than 6 Hours Per Day (ICD-10-PCS; 2019-01-23)
PROC: 5A1D70Z Performance of Urinary Filtration, Intermittent, Less than 6 Hours Per Day (ICD-10-PCS; 2019-01-26)
PROC: 5A1D70Z Performance of Urinary Filtration, Intermittent, Less than 6 Hours Per Day (ICD-10-PCS; 2019-01-28)
PROC: BF101ZZ Fluoroscopy of Bile Ducts using Low Osmolar Contrast (ICD-10-PCS; 2019-01-30)
PROC: 5A1D70Z Performance of Urinary Filtration, Intermittent, Less than 6 Hours Per Day (ICD-10-PCS; 2019-01-30)
PROC: 0FC98ZZ Extirpation of Matter from Common Bile Duct, Via Natural or Artificial Opening Endoscopic (ICD-10-PCS; 2019-01-30)
PROC: 5A1D70Z Performance of Urinary Filtration, Intermittent, Less than 6 Hours Per Day (ICD-10-PCS; 2019-02-01)
PROC: 30233N1 Transfusion of Nonautologous Red Blood Cells into Peripheral Vein, Percutaneous Approach (ICD-10-PCS; 2019-02-03)
PROC: 5A1D70Z Performance of Urinary Filtration, Intermittent, Less than 6 Hours Per Day (ICD-10-PCS; 2019-02-03)
PROC: 30233N1 Transfusion of Nonautologous Red Blood Cells into Peripheral Vein, Percutaneous Approach (ICD-10-PCS; 2019-02-05)
PROC: 5A1D70Z Performance of Urinary Filtration, Intermittent, Less than 6 Hours Per Day (ICD-10-PCS; 2019-02-05)
PROC: 30233N1 Transfusion of Nonautologous Red Blood Cells into Peripheral Vein, Percutaneous Approach (ICD-10-PCS; 2019-02-08)
PROC: 5A1D70Z Performance of Urinary Filtration, Intermittent, Less than 6 Hours Per Day (ICD-10-PCS; 2019-02-08)
PROC: 30233N1 Transfusion of Nonautologous Red Blood Cells into Peripheral Vein, Percutaneous Approach (ICD-10-PCS; 2019-02-09)
PROC: 5A1D70Z Performance of Urinary Filtration, Intermittent, Less than 6 Hours Per Day (ICD-10-PCS; 2019-02-10)
PROC: 5A1D70Z Performance of Urinary Filtration, Intermittent, Less than 6 Hours Per Day (ICD-10-PCS; 2019-02-12)
PROC: 30233N1 Transfusion of Nonautologous Red Blood Cells into Peripheral Vein, Percutaneous Approach (ICD-10-PCS; 2019-02-15)
PROC: 5A1D70Z Performance of Urinary Filtration, Intermittent, Less than 6 Hours Per Day (ICD-10-PCS; 2019-02-15)
PROC: 5A1D70Z Performance of Urinary Filtration, Intermittent, Less than 6 Hours Per Day (ICD-10-PCS; 2019-02-17)
PROC: 02HV33Z Insertion of Infusion Device into Superior Vena Cava, Percutaneous Approach (ICD-10-PCS; 2019-02-18)
PROC: 5A1D70Z Performance of Urinary Filtration, Intermittent, Less than 6 Hours Per Day (ICD-10-PCS; principal; 2019-02-19)
PROC: 30233R1 Transfusion of Nonautologous Platelets into Peripheral Vein, Percutaneous Approach (ICD-10-PCS; 2019-02-19)
DX: A41.9 Sepsis, unspecified organism (principal); N18.6 End stage renal disease; D75.81 Myelofibrosis; D61.818 Other pancytopenia; K80.63 Calculus of gallbladder and bile duct with acute cholecystitis with obstruction; I13.2 Hypertensive heart and chronic kidney disease with heart failure and with stage 5 chronic kidney disease, or end stage renal disease; I42.0 Dilated cardiomyopathy; T82.858A Stenosis of other vascular prosthetic devices, implants and grafts, initial encounter; I50.22 Chronic systolic (congestive) heart failure; E03.9 Hypothyroidism, unspecified; I25.10 Atherosclerotic heart disease of native coronary artery without angina pectoris; I48.91 Unspecified atrial fibrillation; K74.60 Unspecified cirrhosis of liver; R04.0 Epistaxis; I95.9 Hypotension, unspecified; D64.9 Anemia, unspecified; E78.5 Hyperlipidemia, unspecified; E11.22 Type 2 diabetes mellitus with diabetic chronic kidney disease; Y83.8 Other surgical procedures as the cause of abnormal reaction of the patient, or of later complication, without mention of misadventure at the time of the procedure; Z88.6 Allergy status to analgesic agent; I25.2 Old myocardial infarction; Z99.2 Dependence on renal dialysis; Z79.82 Long term (current) use of aspirin; Z79.890 Hormone replacement therapy; Z95.0 Presence of cardiac pacemaker; Y92.89 Other specified places as the place of occurrence of the external cause
CPT/HCPCS: 36415; 43262; 43264; 47531; 71045; 71046; 74176; 76705; 76937; 80053; 80069; 80202; 81001; 82728; 82948; 83540; 83550; 83605; 83735; 84100; 84145; 84443; 85025; 85027; 86870; 86885; 86900; 86901; 86902; 86905; 86920; 86922; 86945; 87040; 87070; 87075; 87077; 87081; 87088; 87102; 87186; 87340; 90935; 93306; 97110; 97116; 97161; 97530; 99285; A4618; C1769; G0257; G0378; J0713; J0780; J1100; J1265; J1610; J1644; J1815; J2001; J2060; J2250; J2270; J2370; J2405; J2543; J2710; J3010; J3370; J3490; J7120; P9016; P9035; P9047; Q0169; Q4081; Q9967

== ENCOUNTER 2019-02-24 11:48 | Emergency (ER) | payer OTHER, MEDICARE ==
[~2019-02-24] VITALS: Ht 182.9 cm; Wt 80.9 kg
[~2019-02-24 11:48] MED LIST changes: -ACET-2119 PO; -CHLO473M3 PO; -DIPH25CA83 PO; +FLUC100T9 PO; -LIDO700A47 TP; -SULF1TAB48 PO
[2019-02-24 12:28] LABS: BASOPHILS % (AUTO) 0.7 % (0-1); EOSINOPHILS # (AUTO) 0.3 X10'3 (0-0.9); EOSINOPHILS % (AUTO) 4.2 % (0-6); HEMOGLOBIN 7.7 g/dl (14.0-17.9); LYMPHOCYTES # (AUTO) 0.4 X10'3 (1.1-4.8); MEAN CORPUSCULAR HEMOGLOBIN 31.1 PG (27.0-31.0); MEAN CORPUSCULAR HGB CONC 33.5 g/dL (33.0-36.5); MEAN CORPUSCULAR VOLUME 92.8 FL (78-98); MEAN PLATELET VOLUME 8.6 FL (7.4-10.4); MONOCYTES # (AUTO) 0.1 X10'3 (0-0.9); MONOCYTES % (AUTO) 1.8 % (2-12); NEUTROPHILS # (AUTO) 5.2 X10'3 (1.8-7.7); NEUTROPHILS % (AUTO) 86.3 % (42-75); PLATELET COUNT 66 X10'3 (140-440); RED BLOOD COUNT 2.48 X10'6 (4.70-6.10); RED CELL DISTRIBUTION WIDTH 22.6 % (11.5-14.5)
[2019-02-24 12:41] LABS: ALANINE AMINOTRANSFERASE 15 U/L (12-78); ALBUMIN 2.9 G/DL (3.4-5.0); ALBUMIN/GLOBULIN RATIO 0.9 (1.1-1.5); ALKALINE PHOSPHATASE 102 IU/L (46-116); ANION GAP 7 (8-16); ASPARTATE AMINO TRANSFERASE 19 U/L (10-37); BILIRUBIN,TOTAL 0.9 MG/DL (0.1-1.0); BLOOD UREA NITROGEN 32 MG/DL (7-18); BUN/CREATININE RATIO 8.3 (5.4-32.0); CALCIUM 8.7 MG/DL (8.5-10.1); CHLORIDE 99 MMOL/L (99-107); CREATININE 3.85 MG/DL (0.60-1.10); GLUCOSE 158 MG/DL (70-104); PARTIAL THROMBOPLASTIN TIME 32 SECONDS (22-32); POTASSIUM 3.7 MMOL/L (3.5-5.1); SODIUM 139 MMOL/L (135-145); TOTAL CARBON DIOXIDE 33.1 MMOL/L (24-32); TOTAL PROTEIN 6.2 G/DL (6.4-8.2); eGFR 16 ML/MIN
[2019-02-24 13:09] LABS: TOTAL CELLS COUNTED 100
[2019-02-24 13:10] LABS: ANISOCYTOSIS 3+; ELLIPTOCYTES 1+; HYPOCHROMASIA 1+; PLATELET ESTIMATE DECREASED; POIKILOCYTOSIS 1+; POLYCHROMASIA FEW
--- NOTE | 2019-02-24 13:55 | NUR ---
REPORTED TO DR. PRINCE, PT REPORTS UPPER ABDOMINAL PAIN, PT HAS DRAIN WITH GREEN BILE BAG RIGHT ABDOMEN. PT ALSO REQUESTED BLADDER SCANNER, HAS NOT HAD HIS BLADDER EMPTIED IN 2 WEEKS, DUE TO DIALYSIS. LAST TIME THEY TOOK OFF 200CC URINE. PT AT BEDSIDE. DR. PRINCE AT BEDSIDE TO SPEAK WITH PT. WILL UPDATE RAULITO NURSE.
[2019-02-24] MEDS ORDERED: LIDOcaine 2% 10ml TOPICAL JELLY (Urojet) MM ONE (14:25)
[2019-02-24 14:26] VITALS: BP 86/45
[2019-02-24] MEDS ORDERED: MECL-127 PO (14:51)
== END 2019-02-24 14:51 | disposition home or self-care (01) ==
LOC: ER 11:48
DX: D64.9 Anemia, unspecified (principal); I48.91 Unspecified atrial fibrillation; I50.9 Heart failure, unspecified; I25.2 Old myocardial infarction; N18.6 End stage renal disease; Z95.0 Presence of cardiac pacemaker; Z88.5 Allergy status to narcotic agent; Z79.82 Long term (current) use of aspirin; Z79.899 Other long term (current) drug therapy
CPT/HCPCS: 36415; 71045; 80053; 84484; 85025; 85610; 85730; 86870; 86885; 86900; 86901; 86902; 86905; 93005; 99284

== ENCOUNTER 2019-03-10 06:17 | Emergency (ER) | payer OTHER, MEDICARE ==
[~2019-03-10] VITALS: Ht 182.9 cm; Wt 79.5 kg
[~2019-03-10 06:17] MED LIST changes: +MECL-127 PO
[2019-03-10 07:07] LABS: BASOPHILS # (AUTO) 0.1 X10'3 (0-0.2); BASOPHILS % (AUTO) 0.9 % (0-1); EOSINOPHILS # (AUTO) 0.3 X10'3 (0-0.9); EOSINOPHILS % (AUTO) 3.8 % (0-6); HEMOGLOBIN 8.1 g/dl (14.0-17.9); LYMPHOCYTES # (AUTO) 0.9 X10'3 (1.1-4.8); MEAN CORPUSCULAR HEMOGLOBIN 31.1 PG (27.0-31.0); MEAN CORPUSCULAR HGB CONC 33.7 g/dL (33.0-36.5); MEAN CORPUSCULAR VOLUME 92.5 FL (78-98); MEAN PLATELET VOLUME 8.3 FL (7.4-10.4); MONOCYTES # (AUTO) 0.1 X10'3 (0-0.9); MONOCYTES % (AUTO) 1.7 % (2-12); NEUTROPHILS % (AUTO) 81.6 % (42-75); PLATELET COUNT 66 X10'3 (140-440); RED BLOOD COUNT 2.59 X10'6 (4.70-6.10); RED CELL DISTRIBUTION WIDTH 24.5 % (11.5-14.5); WHITE BLOOD COUNT 7.4 X10'3 (4.5-11.0)
[2019-03-10] MEDS ORDERED: midodrine tablet 2.5 MG TABLET PO STA (07:22)
--- NOTE | 2019-03-10 07:25 | NUR ---
PT ASKING ABOUT NASAL CLIP PLACED BY DR RESENDIZ APPROX 40 MIN AGO, PT SPOUSE STATES PT TAKES 10 JARETH MIDODRINE TID ON NON DIALYSIS DAYS, DR MIKE INFORMED, ORDERS TO FOLLOW, DR CAME TO BEDSIDE AND REMOVED NASAL CLIP, NO BLEEING UPON REMOVAL, WILL CONTINUE TO MONITOR AND MEDICATE PT PER ORDERS
[2019-03-10 07:27] LABS: ALANINE AMINOTRANSFERASE 7 U/L (12-78); ALBUMIN 2.8 G/DL (3.4-5.0); ALBUMIN/GLOBULIN RATIO 0.9 (1.1-1.5); ALKALINE PHOSPHATASE 81 IU/L (46-116); ANION GAP 9 (8-16); ASPARTATE AMINO TRANSFERASE 10 U/L (10-37); BILIRUBIN,TOTAL 0.8 MG/DL (0.1-1.0); BLOOD UREA NITROGEN 37 MG/DL (7-18); CALCIUM 7.8 MG/DL (8.5-10.1); CHLORIDE 98 MMOL/L (99-107); CREATININE 3.71 MG/DL (0.60-1.10); GLUCOSE 169 MG/DL (70-104); POTASSIUM 3.3 MMOL/L (3.5-5.1); SODIUM 137 MMOL/L (135-145); TOTAL CARBON DIOXIDE 29.7 MMOL/L (24-32); eGFR 16 ML/MIN
[2019-03-10] MEDS ORDERED: midodrine 5mg tablet PO ONE (07:35)
[2019-03-10 09:16] LABS: PLATELET ESTIMATE DECREASED; TOTAL CELLS COUNTED 100
[2019-03-10 09:17] LABS: ANISOCYTOSIS 3+; ELLIPTOCYTES 1+; HYPOCHROMASIA 1+; POIKILOCYTOSIS 1+; POLYCHROMASIA FEW
--- NOTE | 2019-03-10 09:27 | NUR ---
CALLED PT SPOUSE [phone] NO ANSWER, PT STATES SPOUSE WENT HOME TO GET OXYGEN TANK FOR TRANSPORT
--- NOTE | 2019-03-10 09:37 | NUR ---
SPOUSE BACK AT BEDSIDE NOW, EXPRESSED CONCERNED OF CLEAR FLUID DRAINAGE FROM AROUND GALLBLADDER TUBE CLEAR DRAINAGED ONSET FRIDAY, PT STATES TUBE PLACED 12/25 AND REPLACED 01/19 AND TO FOLLOW [facility]
--- NOTE | 2019-03-10 09:39 | NUR ---
DR MIKE INFORMED OF ABOVE AND WILL SPEAK WITH PT AND SPOUSE ABOVE CLEAR DRAINAGED CONCERNS
[2019-03-10 09:45] LABS: SCHISTOCYTES FEW; SPHEROCYTES FEW
--- NOTE | 2019-03-10 11:32 | NUR ---
back from ct scan
--- NOTE | 2019-03-10 12:24 | NUR ---
bp 89/[address] hernadez. states he always runs that low. no new orders at this time.
--- NOTE | 2019-03-10 12:28 | NUR ---
slight bleeding from right nare. clamp applied
[2019-03-10 14:01] VITALS: BP 89/42
== END 2019-03-10 14:03 | disposition home or self-care (01) ==
LOC: ER 06:18
DX: R04.0 Epistaxis (principal); R18.8 Other ascites; I48.91 Unspecified atrial fibrillation; I50.9 Heart failure, unspecified; I25.2 Old myocardial infarction; N18.6 End stage renal disease; Z95.0 Presence of cardiac pacemaker; Z95.4 Presence of other heart-valve replacement; Z88.5 Allergy status to narcotic agent; Z79.82 Long term (current) use of aspirin; Z79.899 Other long term (current) drug therapy
CPT/HCPCS: 36415; 74176; 80053; 85025; 85610; 99284

== ENCOUNTER 2019-03-22 17:50 | Inpatient (IN) | payer OTHER, MEDICARE ==
[~2019-03-22] VITALS: Ht 182.9 cm; Wt 82.8 kg
[2019-03-22 18:37] LABS: BASOPHILS # (AUTO) 0.1 X10'3 (0-0.2); EOSINOPHILS # (AUTO) 0.5 X10'3 (0-0.9); EOSINOPHILS % (AUTO) 3.6 % (0-6); HEMATOCRIT 22.8 % (42.0-52.0); HEMOGLOBIN 7.4 g/dl (14.0-17.9); LYMPHOCYTES # (AUTO) 0.9 X10'3 (1.1-4.8); LYMPHOCYTES % (AUTO) 6.7 % (21-51); MEAN CORPUSCULAR HEMOGLOBIN 28.8 PG (27.0-31.0); MEAN CORPUSCULAR HGB CONC 32.4 g/dL (33.0-36.5); MEAN CORPUSCULAR VOLUME 88.9 FL (78-98); MEAN PLATELET VOLUME 8.6 FL (7.4-10.4); MONOCYTES # (AUTO) 0.2 X10'3 (0-0.9); MONOCYTES % (AUTO) 1.4 % (2-12); NEUTROPHILS # (AUTO) 11.9 X10'3 (1.8-7.7); NEUTROPHILS % (AUTO) 87.3 % (42-75); PLATELET COUNT 94 X10'3 (140-440); RED BLOOD COUNT 2.57 X10'6 (4.70-6.10); RED CELL DISTRIBUTION WIDTH 21.7 % (11.5-14.5); WHITE BLOOD COUNT 13.7 X10'3 (4.5-11.0)
[2019-03-22 18:48] LABS: ALANINE AMINOTRANSFERASE 12 U/L (12-78); ALBUMIN 3.1 G/DL (3.4-5.0); ALKALINE PHOSPHATASE 92 IU/L (46-116); ANION GAP 10 (8-16); ASPARTATE AMINO TRANSFERASE 12 U/L (10-37); BILIRUBIN,TOTAL 0.5 MG/DL (0.1-1.0); BLOOD UREA NITROGEN 31 MG/DL (7-18); BUN/CREATININE RATIO 12.1 (5.4-32.0); CALCIUM 8.6 MG/DL (8.5-10.1); CHLORIDE 103 MMOL/L (99-107); CREATININE 2.57 MG/DL (0.60-1.10); GLUCOSE 167 MG/DL (70-104); POTASSIUM 4.1 MMOL/L (3.5-5.1); SODIUM 139 MMOL/L (135-145); TOTAL PROTEIN 6.3 G/DL (6.4-8.2); eGFR 25 ML/MIN
[2019-03-22 19:24] LABS: BANDS% (MANUAL) 6 % (0-10); BASOPHILS % (MANUAL) 1 % (0-1); LYMPHOCYTES % (MANUAL) 4 % (21-51); METAMYLEOCYTES% (MANUAL) 2 % (0-0); MONOCYTES % (MANUAL) 2 % (2-12); NEUTROPHILS % (MANUAL) 85 % (42-75); NUCLEATED RED BLOOD CELLS 1 /100WBC (0-0); SMUDGE CELLS 1+; TOTAL CELLS COUNTED 100
[2019-03-22 19:25] LABS: ANISOCYTOSIS 3+; ELLIPTOCYTES 2+; HYPOCHROMASIA 1+; PLATELET ESTIMATE DECREASED
[2019-03-22] MEDS ORDERED: ESCI10TA54 PO (20:20)
[2019-03-22] MEDS ORDERED: FLUC50TA5 PO (20:23)
[2019-03-22] MEDS ORDERED: FLO0.1T PO (20:23)
[2019-03-22] MEDS ORDERED: NITR0.4T51 SL (20:32)
[2019-03-22] MEDS ORDERED: OMEP40CA13 PO (20:32)
[2019-03-22] MEDS ORDERED: acetaminophen 325mg tablet PO PRN (20:35)
[2019-03-22] MEDS ORDERED: acetaminophen 650mg rectal suppository RC PRN (20:35)
[2019-03-22] MEDS ORDERED: ondansetron/PF 4mg/2ml inj IV PRN (20:35)
[2019-03-22] MEDS ORDERED: fludrocortisone acetate 0.1mg tablet PO PRN (20:45)
[2019-03-22] MEDS ORDERED: nitroGLYCERIN 0.4mg SUBLingual tab SL PRN (20:45)
[2019-03-22] MEDS ORDERED: EPOETIN ALFA 20000 UNIT SQ SCH (20:45)
[2019-03-22] MEDS ORDERED: non-formulary drug (Atorvastatin Calcium (Lipitor) 1 TABLET) PO SCH (21:00)
[2019-03-22 22:00] VITALS: BP 84/42
[2019-03-22] MEDS: atorvastatin 20mg tablet PO SCH (22:39)
[2019-03-22] MEDS: donepezil 5mg tablet PO SCH (22:39)
[2019-03-23] VITALS: BP 87/44
[2019-03-23 00:09] LABS: HEMOGLOBIN A1C 5.7 % (4.5-6.2)
[2019-03-23] MEDS: midodrine 5mg tablet PO SCH ×3 (00:12→16:51)
[2019-03-23 05:20] LABS: BASOPHILS # (AUTO) 0.1 X10'3 (0-0.2); BASOPHILS % (AUTO) 0.9 % (0-1); EOSINOPHILS # (AUTO) 0.4 X10'3 (0-0.9); EOSINOPHILS % (AUTO) 3.6 % (0-6); LYMPHOCYTES # (AUTO) 1.3 X10'3 (1.1-4.8); LYMPHOCYTES % (AUTO) 10.2 % (21-51); MEAN CORPUSCULAR HEMOGLOBIN 29.1 PG (27.0-31.0); MEAN CORPUSCULAR HGB CONC 32.9 g/dL (33.0-36.5); MEAN CORPUSCULAR VOLUME 88.4 FL (78-98); MEAN PLATELET VOLUME 8.3 FL (7.4-10.4); MONOCYTES # (AUTO) 0.2 X10'3 (0-0.9); MONOCYTES % (AUTO) 1.6 % (2-12); NEUTROPHILS # (AUTO) 10.3 X10'3 (1.8-7.7); NEUTROPHILS % (AUTO) 83.7 % (42-75); PLATELET COUNT 89 X10'3 (140-440); RED BLOOD COUNT 2.47 X10'6 (4.70-6.10); RED CELL DISTRIBUTION WIDTH 22.3 % (11.5-14.5); WHITE BLOOD COUNT 12.3 X10'3 (4.5-11.0)
[2019-03-23 05:31] LABS: PHOSPHORUS 2.4 MG/DL (2.3-4.5)
[2019-03-23 05:45] LABS: HEMATOCRIT 21.8 % (42.0-52.0); HEMOGLOBIN 7.2 g/dl (14.0-17.9)
--- NOTE | 2019-03-23 06:29 | NUR ---
Problems reprioritized. Patient report given, questions answered & plan of care reviewed with TEENA. Addendum: 03/23/19 at 0629 by Yared Gonzalez RN Amended: Links added.
--- NOTE | 2019-03-23 06:30 | NUR ---
Patient in room [facility] 348. I have received report from AROLDO Vail and had the opportunity to ask questions and assume patient care.
[2019-03-23 06:50] LABS: ANISOCYTOSIS 3+; PLATELET ESTIMATE DECREASED
[2019-03-23 06:51] LABS: MICROCYTOSIS 1+; SPHEROCYTES FEW
[2019-03-23 08:00] VITALS: BP 88/43
[2019-03-23] MEDS ORDERED: FLUTICASONE PROPIONATE BOTHNARES SCH (08:00)
[2019-03-23] MEDS ORDERED: docusate sod 100mg capsule PO SCH (08:00)
[2019-03-23] MEDS ORDERED: non-formulary drug (Omeprazole (Prilosec) 1 CAP) PO SCH (08:00)
[2019-03-23] MEDS ORDERED: non-formulary drug (Escitalopram Oxalate 1 TAB) PO SCH (08:00)
[2019-03-23] MEDS: fluticasone nasal spray 16GM bottle NS SCH (08:00)
[2019-03-23] MEDS ORDERED: non-formulary drug (Lactobacillus Acidophilus (ACIDOPHILUS capsule) 1 CAP) PO SCH (08:00)
[2019-03-23] MEDS ORDERED: non-formulary drug (Aspirin (Aspir 81) 1 TAB) PO SCH (08:00)
[2019-03-23] MEDS: lactobacillus rhamnosus 10,000 MMU CELLS/CAPSULE PO SCH ×2 (08:20→20:38)
[2019-03-23] MEDS: epoetin 20,000 units/ml inj SQ SCH (08:20)
[2019-03-23] MEDS: aspirin 81mg tablet.DR PO SCH (08:20)
[2019-03-23] MEDS: citalopram 20mg tablet PO SCH (08:21)
[2019-03-23] MEDS: levoTHYROXINE 75mcg tablet PO SCH (08:21)
[2019-03-23] MEDS: folic acid 1mg tablet PO SCH (08:21)
[2019-03-23] MEDS: pantoprazole 40mg Tablet.DR PO SCH (08:21)
[2019-03-23] MEDS: sulfamethoxazole/trimethoprim DS (800/160mg) tablet PO SCH (08:22)
[2019-03-23] MEDS: finasteride 5mg tablet PO SCH (08:24)
[2019-03-23] MEDS: linagliptin 5mg tablet PO SCH (10:46)
[2019-03-23] MEDS: docusate sod 100mg capsule PO SCH ×2 (10:46→20:38)
[2019-03-23 11:00] VITALS: BP 90/43
--- NOTE | 2019-03-23 12:20 | NUR ---
DM consult: Pt with A1c 5.7; DM ed not warranted at this time. Noted that pt currently on renal diet, d/w RN to add CHO controlled diet. Will continue to follow. Addendum: 03/23/19 at [address] Amended: Links added.
--- NOTE | 2019-03-23 14:42 | NUR ---
30mL urine specimen obtained via 10F straight cath. Pt tolerated well. Urine was yellow, milky, cloudy in appearance. Pt states due to his urethral size he prefers either a 10F or a 12F with Lidocaine to be used for straight cath.
[2019-03-23 14:58] LABS: CLARITY,URINE TURBID (Clear); COLOR,URINE YELLOW (Yellow); GLUCOSE, URINE NEGATIVE (Neg); KETONES,URINE NEGATIVE (Neg); LEUKOCYTE ESTERASE ,URINE LARGE (Neg); NITRITES, URINE NEGATIVE (Neg); OCCULT BLOOD,URINE LARGE (Neg); PROTEIN,URINE >=300 mg/dl (Neg); UROBILINOGEN,URINE 0.2 E.U/dL (0.2-1.0)
[2019-03-23 15:19] LABS: UA COLLECTION TYPE NON-SPECIFIED
[2019-03-23 15:47] LABS: WBC,URINE TNTC /HPF (0-4)
[2019-03-23 15:53] LABS: BACTERIA,URINE 4+ /HPF (Neg); RBC,URINE 0-2 /HPF (0-2); SQUAMOUS EPITHELIAL CELL,UR NONE SEEN /LPF (FEW)
--- NOTE | 2019-03-23 16:04 | NUR ---
Unable to complete 2 RN skin assessment. ABDELRAHMAN wraps on pt bilateral forearms that home microfilm operator placed and pt refused to let RN remove because they were recently applied.
--- NOTE | 2019-03-23 17:30 | NUR ---
VS stable throughout the day. denies pain. c/o generalized weakness 2nd to anemia. plan for HD tomorrow and PRBC transfusion. Pts blood has special antibodies. RN called blood bank, special blood ready for pt. Accucheck ACHS for DM2, pt did not meet protocol. straight cath performed with 10F to obtain UA with positive result.
--- NOTE | 2019-03-23 18:19 | NUR ---
Problems reprioritized. Patient report given, questions answered & plan of care reviewed with AROLDO Rodriguez.
[2019-03-23 18:30] VITALS: BP 87/45
[2019-03-23] MEDS: atorvastatin 20mg tablet PO SCH (20:38)
[2019-03-23] MEDS: donepezil 5mg tablet PO SCH (20:38)
[2019-03-24] VITALS (10 sets, daily range): BP systolic 86–108; BP diastolic 33–56
[2019-03-24] MEDS: midodrine 5mg tablet PO SCH ×3 (00:03→15:53)
--- NOTE | 2019-03-24 06:30 | NUR ---
Patient in room [facility] 348. I have received report from Michael KENDRICK and had the opportunity to ask questions and assume patient care.
--- NOTE | 2019-03-24 06:32 | NUR ---
Problems reprioritized. Patient report given, questions answered & plan of care reviewed with RAULITO. Addendum: 03/24/19 at 0633 by Yared Gonzalez RN Amended: Links added.
[2019-03-24] MEDS: linagliptin 5mg tablet PO SCH (07:57)
[2019-03-24] MEDS: pantoprazole 40mg Tablet.DR PO SCH (07:57)
[2019-03-24] MEDS: aspirin 81mg tablet.DR PO SCH (07:57)
[2019-03-24] MEDS: lactobacillus rhamnosus 10,000 MMU CELLS/CAPSULE PO SCH ×2 (07:58→21:37)
[2019-03-24] MEDS: levoTHYROXINE 75mcg tablet PO SCH (07:58)
[2019-03-24] MEDS: sulfamethoxazole/trimethoprim DS (800/160mg) tablet PO SCH (07:59)
[2019-03-24] MEDS: folic acid 1mg tablet PO SCH (07:59)
[2019-03-24] MEDS: docusate sod 100mg capsule PO SCH ×2 (07:59→21:37)
[2019-03-24] MEDS ORDERED: epoetin 20,000 units/ml inj IV ONE (08:00)
[2019-03-24] MEDS ORDERED: normal saline 1000ml 250 ML IV PRN (08:00)
[2019-03-24] MEDS: fluticasone nasal spray 16GM bottle NS SCH (08:00)
[2019-03-24] MEDS ORDERED: heparin 1,000 units/ml 10ml inj HE ONE ×2 (08:00)
[2019-03-24] MEDS ORDERED: heparin 1,000unit/ml 10ml vial 10 ML IV ONE (08:00)
[2019-03-24] MEDS: citalopram 20mg tablet PO SCH (08:00)
[2019-03-24] MEDS: finasteride 5mg tablet PO SCH (08:01)
[2019-03-24 10:47] LABS: PHOSPHORUS 3.6 MG/DL (2.3-4.5)
[2019-03-24 12:15] LABS: BASOPHILS # (AUTO) 0.1 X10'3 (0-0.2); BASOPHILS % (AUTO) 0.9 % (0-1); EOSINOPHILS # (AUTO) 0.4 X10'3 (0-0.9); EOSINOPHILS % (AUTO) 3.4 % (0-6); HEMATOCRIT 24.1 % (42.0-52.0); HEMOGLOBIN 7.9 g/dl (14.0-17.9); LYMPHOCYTES # (AUTO) 0.9 X10'3 (1.1-4.8); LYMPHOCYTES % (AUTO) 6.8 % (21-51); MEAN CORPUSCULAR HEMOGLOBIN 28.5 PG (27.0-31.0); MEAN CORPUSCULAR HGB CONC 32.8 g/dL (33.0-36.5); MEAN PLATELET VOLUME 7.6 FL (7.4-10.4); MONOCYTES # (AUTO) 0.2 X10'3 (0-0.9); MONOCYTES % (AUTO) 1.3 % (2-12); NEUTROPHILS # (AUTO) 10.9 X10'3 (1.8-7.7); NEUTROPHILS % (AUTO) 87.6 % (42-75); PLATELET COUNT 99 X10'3 (140-440); RED BLOOD COUNT 2.77 X10'6 (4.70-6.10); RED CELL DISTRIBUTION WIDTH 20.4 % (11.5-14.5); WHITE BLOOD COUNT 12.5 X10'3 (4.5-11.0)
[2019-03-24 12:46] LABS: ANISOCYTOSIS 3+; NUCLEATED RED BLOOD CELLS 1 /100WBC (0-0); PLATELET ESTIMATE DECREASED; TOTAL CELLS COUNTED 100
[2019-03-24 12:47] LABS: ELLIPTOCYTES 1+; POLYCHROMASIA FEW
--- NOTE | 2019-03-24 18:30 | NUR ---
Patient in room [facility] 348. I have received report from Robbie KENDRICK and had the opportunity to ask questions and assume patient care. Patient is resting in bed, denies needs at this time. Will continue to monitor.
--- NOTE | 2019-03-24 18:55 | NUR ---
, Lashell, called and requested update, provided. Patient states okay that his gets update. Will continue to monitor.
[2019-03-24] MEDS: donepezil 5mg tablet PO SCH (21:37)
[2019-03-24] MEDS: atorvastatin 20mg tablet PO SCH (21:37)
[2019-03-25] VITALS: BP 93/48
[2019-03-25] MEDS: midodrine 5mg tablet PO SCH ×3 (00:04→16:12)
[2019-03-25 04:59] LABS: BASOPHILS # (AUTO) 0.1 X10'3 (0-0.2); BASOPHILS % (AUTO) 0.7 % (0-1); EOSINOPHILS # (AUTO) 0.6 X10'3 (0-0.9); EOSINOPHILS % (AUTO) 4.5 % (0-6); HEMATOCRIT 28.2 % (42.0-52.0); HEMOGLOBIN 9.4 g/dl (14.0-17.9); LYMPHOCYTES # (AUTO) 0.8 X10'3 (1.1-4.8); LYMPHOCYTES % (AUTO) 6.1 % (21-51); MEAN CORPUSCULAR HEMOGLOBIN 29.4 PG (27.0-31.0); MEAN CORPUSCULAR HGB CONC 33.4 g/dL (33.0-36.5); MEAN CORPUSCULAR VOLUME 87.9 FL (78-98); MEAN PLATELET VOLUME 7.9 FL (7.4-10.4); MONOCYTES # (AUTO) 0.2 X10'3 (0-0.9); MONOCYTES % (AUTO) 1.7 % (2-12); PLATELET COUNT 96 X10'3 (140-440); RED BLOOD COUNT 3.21 X10'6 (4.70-6.10); RED CELL DISTRIBUTION WIDTH 20.5 % (11.5-14.5); WHITE BLOOD COUNT 12.7 X10'3 (4.5-11.0)
[2019-03-25 05:15] LABS: MAGNESIUM 1.9 MG/DL (1.5-2.4); PHOSPHORUS 2.8 MG/DL (2.3-4.5)
--- NOTE | 2019-03-25 06:10 | NUR ---
Problems reprioritized. Patient report given, questions answered & plan of care reviewed with Robbie RN. Patient resting eyes closed respirations even.
--- NOTE | 2019-03-25 06:30 | NUR ---
Patient in room [facility] 348. I have received report from Viji KENDRICK and had the opportunity to ask questions and assume patient care.
[2019-03-25 06:31] LABS: ANISOCYTOSIS 3+; NUCLEATED RED BLOOD CELLS 1 /100WBC (0-0); PLATELET ESTIMATE DECREASED; POLYCHROMASIA FEW; TOTAL CELLS COUNTED 100
[2019-03-25 06:32] LABS: ELLIPTOCYTES 1+
[2019-03-25] MEDS: pantoprazole 40mg Tablet.DR PO SCH (07:45)
[2019-03-25] MEDS: folic acid 1mg tablet PO SCH (07:45)
[2019-03-25] MEDS: citalopram 20mg tablet PO SCH (07:45)
[2019-03-25] MEDS: linagliptin 5mg tablet PO SCH (07:46)
[2019-03-25] MEDS: aspirin 81mg tablet.DR PO SCH (07:46)
[2019-03-25] MEDS: sulfamethoxazole/trimethoprim DS (800/160mg) tablet PO SCH (07:46)
[2019-03-25] MEDS: levoTHYROXINE 75mcg tablet PO SCH (07:46)
[2019-03-25] MEDS: lactobacillus rhamnosus 10,000 MMU CELLS/CAPSULE PO SCH ×2 (07:46→20:49)
[2019-03-25] MEDS: finasteride 5mg tablet PO SCH (07:47)
[2019-03-25] MEDS: docusate sod 100mg capsule PO SCH ×2 (07:47→20:49)
[2019-03-25] MEDS: fluticasone nasal spray 16GM bottle NS SCH (07:49)
[2019-03-25 07:59] VITALS: BP 74/34
[2019-03-25] MEDS: epoetin 20,000 units/ml inj SQ SCH (09:00)
[2019-03-25 10:30] VITALS: BP 82/36
[2019-03-25 11:00] VITALS: BP 76/37
--- NOTE | 2019-03-25 18:15 | NUR ---
Patient in room [facility] 348. I have received report from Robbie KENDRICK and had the opportunity to ask questions and assume patient care.
--- NOTE | 2019-03-25 18:30 | NUR ---
Problems reprioritized. Patient report given, questions answered & plan of care reviewed with Edmond KENDRICK.
[2019-03-25 20:00] VITALS: BP 97/38
[2019-03-25] MEDS: donepezil 5mg tablet PO SCH (20:49)
[2019-03-25] MEDS: atorvastatin 20mg tablet PO SCH (20:49)
[2019-03-26] VITALS: BP 95/50
[2019-03-26] MEDS: midodrine 5mg tablet PO SCH ×3 (00:04→17:01)
--- NOTE | 2019-03-26 06:25 | NUR ---
Problems reprioritized. Patient report given, questions answered & plan of care reviewed with Robbie RN.
--- NOTE | 2019-03-26 06:30 | NUR ---
Patient in room [facility] 348. I have received report from Edmond KENDRICK and had the opportunity to ask questions and assume patient care.
[2019-03-26 07:59] VITALS: BP 118/61
[2019-03-26] MEDS ORDERED: heparin 1,000unit/ml 10ml vial 10 ML IV ONE (08:00)
[2019-03-26] MEDS ORDERED: heparin 1,000 units/ml 10ml inj HE ONE ×2 (08:00)
[2019-03-26] MEDS ORDERED: normal saline 1000ml 250 ML IV PRN (08:00)
[2019-03-26] MEDS ORDERED: epoetin 20,000 units/ml inj IV ONE (08:00)
[2019-03-26] MEDS: fluticasone nasal spray 16GM bottle NS SCH (08:00)
[2019-03-26] MEDS: folic acid 1mg tablet PO SCH (08:58)
[2019-03-26] MEDS: docusate sod 100mg capsule PO SCH (08:58)
[2019-03-26] MEDS: levoTHYROXINE 75mcg tablet PO SCH (08:59)
[2019-03-26] MEDS: pantoprazole 40mg Tablet.DR PO SCH (08:59)
[2019-03-26] MEDS: sulfamethoxazole/trimethoprim DS (800/160mg) tablet PO SCH (08:59)
[2019-03-26] MEDS: linagliptin 5mg tablet PO SCH (08:59)
[2019-03-26] MEDS: citalopram 20mg tablet PO SCH (08:59)
[2019-03-26] MEDS: finasteride 5mg tablet PO SCH (09:00)
[2019-03-26] MEDS: lactobacillus rhamnosus 10,000 MMU CELLS/CAPSULE PO SCH (09:00)
[2019-03-26] MEDS: aspirin 81mg tablet.DR PO SCH (09:01)
[2019-03-26 10:41] LABS: BASOPHILS # (AUTO) 0.1 X10'3 (0-0.2); BASOPHILS % (AUTO) 0.7 % (0-1); EOSINOPHILS # (AUTO) 0.8 X10'3 (0-0.9); EOSINOPHILS % (AUTO) 5.6 % (0-6); HEMATOCRIT 26.8 % (42.0-52.0); HEMOGLOBIN 8.7 g/dl (14.0-17.9); LYMPHOCYTES # (AUTO) 0.6 X10'3 (1.1-4.8); LYMPHOCYTES % (AUTO) 4.9 % (21-51); MEAN CORPUSCULAR HEMOGLOBIN 28.7 PG (27.0-31.0); MEAN CORPUSCULAR HGB CONC 32.5 g/dL (33.0-36.5); MEAN CORPUSCULAR VOLUME 88.1 FL (78-98); MEAN PLATELET VOLUME 8.1 FL (7.4-10.4); MONOCYTES # (AUTO) 0.2 X10'3 (0-0.9); MONOCYTES % (AUTO) 1.5 % (2-12); NEUTROPHILS # (AUTO) 11.6 X10'3 (1.8-7.7); NEUTROPHILS % (AUTO) 87.3 % (42-75); PLATELET COUNT 107 X10'3 (140-440); RED BLOOD COUNT 3.04 X10'6 (4.70-6.10); RED CELL DISTRIBUTION WIDTH 21.2 % (11.5-14.5); WHITE BLOOD COUNT 13.3 X10'3 (4.5-11.0)
[2019-03-26 10:53] LABS: ALANINE AMINOTRANSFERASE 9 U/L (12-78); ALBUMIN 2.8 G/DL (3.4-5.0); ALBUMIN/GLOBULIN RATIO 0.9 (1.1-1.5); ALKALINE PHOSPHATASE 83 IU/L (46-116); ANION GAP 10 (8-16); ASPARTATE AMINO TRANSFERASE 9 U/L (10-37); BILIRUBIN,TOTAL 0.5 MG/DL (0.1-1.0); BLOOD UREA NITROGEN 46 MG/DL (7-18); BUN/CREATININE RATIO 11.9 (5.4-32.0); CALCIUM 7.8 MG/DL (8.5-10.1); CHLORIDE 99 MMOL/L (99-107); CREATININE 3.87 MG/DL (0.60-1.10); GLUCOSE 184 MG/DL (70-104); MAGNESIUM 1.9 MG/DL (1.5-2.4); PHOSPHORUS 4.1 MG/DL (2.3-4.5); POTASSIUM 4.5 MMOL/L (3.5-5.1); SODIUM 135 MMOL/L (135-145); TOTAL CARBON DIOXIDE 26.3 MMOL/L (24-32); TOTAL PROTEIN 5.9 G/DL (6.4-8.2); eGFR 16 ML/MIN
[2019-03-26 11:00] VITALS: BP 119/44
--- NOTE | 2019-03-26 13:17 | NUR ---
Initial: Pt admit with leukocytosis, anemia, and weakness with hx ESRD on HD. Pt with hx choledocholithiasis with cholecystostomy for several months per MD notes. Pt currently on renal diet with slowly improving PO intake, mostly averaging 50% however recently up to 75% with 100% at breakfast this morning meeting nutrient needs. [facility] 03/24. Will continue to follow and monitor need for ONS pending additional trends in PO intake. Recommendations: 1) Continue renal diet 2) Monitor need for ONS 3) Wt per rx Addendum: 03/26/19 at [address] Amended: Links added.
[2019-03-26 13:20] LABS: ANISOCYTOSIS 3+; HYPOCHROMASIA 1+; PLATELET ESTIMATE DECREASED; POLYCHROMASIA 1+
[2019-03-26 13:21] LABS: ELLIPTOCYTES 1+
--- NOTE | 2019-03-26 17:00 | NUR ---
PATIENT DISCHARGE HOME AND TO FOLLOW UP WITH PRIMARY. PATIENT EXPRESSED UNDERSTANDING OF THIS UPON DISCHARGE. PATIENT HAD NO NEW MEDS ADDED OR ANY CURRENT MEDICATIONS TAKEN AWAY. PATIENT PIV WAS TAKEN OUT AT THIS TIME. PATIENT TAKEN TO LOBBY VIA WHEELCHAIR AND DRIVEN HOME IN PRIVATE VEHICLE.
== END 2019-03-26 17:40 | disposition home health service (06) | DRG 811 ==
LOC: ER 17:50 → SUR 3N 21:24 → CMPBEDREQ 22:34 → SUR 3N 03-24 09:58
PROVIDERS: ADMIT Internal Medicine Critical Care Medicine; ATTEND Internal Medicine Critical Care Medicine
PROC: 30233N1 Transfusion of Nonautologous Red Blood Cells into Peripheral Vein, Percutaneous Approach (ICD-10-PCS; principal; 2019-03-24)
PROC: 5A1D70Z Performance of Urinary Filtration, Intermittent, Less than 6 Hours Per Day (ICD-10-PCS; 2019-03-24)
PROC: 5A1D70Z Performance of Urinary Filtration, Intermittent, Less than 6 Hours Per Day (ICD-10-PCS; 2019-03-26)
DX: D46.9 Myelodysplastic syndrome, unspecified (principal); N18.6 End stage renal disease; C79.51 Secondary malignant neoplasm of bone; N39.0 Urinary tract infection, site not specified; D75.81 Myelofibrosis; I44.7 Left bundle-branch block, unspecified; I48.2 Chronic atrial fibrillation; I95.89 Other hypotension; K59.00 Constipation, unspecified; K80.50 Calculus of bile duct without cholangitis or cholecystitis without obstruction; I50.9 Heart failure, unspecified; Z79.84 Long term (current) use of oral hypoglycemic drugs; Z88.6 Allergy status to analgesic agent; Z79.899 Other long term (current) drug therapy; I25.2 Old myocardial infarction; Z99.2 Dependence on renal dialysis; Z79.82 Long term (current) use of aspirin; Z95.0 Presence of cardiac pacemaker
CPT/HCPCS: 36415; 71045; 80053; 81001; 82948; 83036; 83735; 84100; 85025; 85610; 86644; 86870; 86885; 86900; 86901; 86902; 86905; 86922; 86945; 87040; 87081; 87088; 93005; 97110; 97161; 97530; 99285; G0257; G0378; J1644; P9016; Q4081

== ENCOUNTER 2019-03-30 11:26 | Inpatient (IN) | payer MEDICARE, OTHER ==
[~2019-03-30] VITALS: Ht 182.9 cm; Wt 80.3 kg
[~2019-03-30 11:26] MED LIST changes: -EPOE20005 SQ; +ESCI10TA54 PO; +FLO0.1T PO; -FLUC100T9 PO; +NITR0.4T51 SL; +OMEP40CA13 PO
[2019-03-30 12:13] LABS: BASOPHILS # (AUTO) 0.1 X10'3 (0-0.2); BASOPHILS % (AUTO) 0.7 % (0-1); EOSINOPHILS # (AUTO) 1.1 X10'3 (0-0.9); EOSINOPHILS % (AUTO) 6.7 % (0-6); HEMATOCRIT 31.2 % (42.0-52.0); HEMOGLOBIN 10.1 g/dl (14.0-17.9); LYMPHOCYTES # (AUTO) 0.8 X10'3 (1.1-4.8); LYMPHOCYTES % (AUTO) 4.5 % (21-51); MEAN CORPUSCULAR HEMOGLOBIN 28.7 PG (27.0-31.0); MEAN CORPUSCULAR HGB CONC 32.3 g/dL (33.0-36.5); MEAN PLATELET VOLUME 8.2 FL (7.4-10.4); MONOCYTES # (AUTO) 0.2 X10'3 (0-0.9); MONOCYTES % (AUTO) 1.1 % (2-12); NEUTROPHILS # (AUTO) 14.8 X10'3 (1.8-7.7); PLATELET COUNT 94 X10'3 (140-440); RED BLOOD COUNT 3.51 X10'6 (4.70-6.10); RED CELL DISTRIBUTION WIDTH 21.1 % (11.5-14.5)
[2019-03-30 12:26] LABS: ALKALINE PHOSPHATASE 86 IU/L (46-116); ANION GAP 11 (8-16); ASPARTATE AMINO TRANSFERASE 10 U/L (10-37); BILIRUBIN,TOTAL 0.6 MG/DL (0.1-1.0); BLOOD UREA NITROGEN 34 MG/DL (7-18); CALCIUM 8.8 MG/DL (8.5-10.1); CHLORIDE 100 MMOL/L (99-107); CREATININE 3.41 MG/DL (0.60-1.10); GLUCOSE 141 MG/DL (70-104); POTASSIUM 4.6 MMOL/L (3.5-5.1); SODIUM 136 MMOL/L (135-145); TOTAL CARBON DIOXIDE 24.8 MMOL/L (24-32); TOTAL PROTEIN 6.1 G/DL (6.4-8.2); eGFR 18 ML/MIN
[2019-03-30 12:29] LABS: ALANINE AMINOTRANSFERASE < 6 U/L (12-78)
[2019-03-30 12:39] LABS: CLARITY,URINE TURBID (Clear); COLOR,URINE YELLOW (Yellow); GLUCOSE, URINE NEGATIVE (Neg); KETONES,URINE NEGATIVE (Neg); LEUKOCYTE ESTERASE ,URINE LARGE (Neg); NITRITES, URINE NEGATIVE (Neg); OCCULT BLOOD,URINE MODERATE (Neg); PROTEIN,URINE >=300 mg/dl (Neg); UROBILINOGEN,URINE 0.2 E.U/dL (0.2-1.0)
[2019-03-30 12:45] LABS: UA COLLECTION TYPE STRAIGHT CATH
[2019-03-30 12:50] LABS: ANISOCYTOSIS 3+; PLATELET ESTIMATE DECREASED; TOTAL CELLS COUNTED 100
[2019-03-30 12:51] LABS: ELLIPTOCYTES 1+; SCHISTOCYTES FEW
[2019-03-30] MEDS ORDERED: pantoprazole 40 MG vial IV ONE (12:55)
[2019-03-30] MEDS ORDERED: ondansetron/PF 4mg/2ml inj IV ONE (12:55)
[2019-03-30] MEDS ORDERED: normal saline 1000ML IV soln IVB ONE (12:55)
[2019-03-30] MEDS: morphine 2 MG/ML inj. syringe IV PRN ×4 (13:03→23:16)
[2019-03-30 13:06] LABS: BACTERIA,URINE 4+ /HPF (Neg); RBC,URINE 0-2 /HPF (0-2); WBC,URINE TNTC /HPF (0-4)
[2019-03-30 13:08] LABS: SQUAMOUS EPITHELIAL CELL,UR NONE SEEN /LPF (FEW)
[2019-03-30 13:09] LABS: WBC CLUMPS,URINE MODERATE /HPF (NEGATIVE)
[2019-03-30 13:16] LABS: LIPASE 79 U/L (73-393)
--- NOTE | 2019-03-30 13:51 | NUR ---
SADIQ ACOSTA: [phone]
[2019-03-30] MEDS ORDERED: CefTRIAXone/D5W-Rocephin 1gm 50 ML IV ONE (14:15)
[2019-03-30] MEDS ORDERED: magnesium hydroxide 30ml (MOM) UD suspension PO PRN (14:55)
[2019-03-30] MEDS ORDERED: acetaminophen 325mg tablet PO PRN (14:55)
[2019-03-30] MEDS ORDERED: SULF1TAB48 PO (15:21)
[2019-03-30] MEDS: piperacillin/tazo 3.375gm/50ml 50 ML IV SCH (16:08)
[2019-03-30] MEDS ORDERED: bisacodyl 10mg suppository rectal RC PRN (16:35)
[2019-03-30] MEDS ORDERED: docusate sod 100mg capsule PO PRN (16:35)
[2019-03-30] MEDS ORDERED: nitroGLYCERIN 0.4mg SUBLingual tab SL PRN (16:35)
[2019-03-30] MEDS ORDERED: FLUTICASONE PROPIONATE BOTHNARES PRN (16:35)
--- NOTE | 2019-03-30 19:00 | NUR ---
1814:Got report from Renata KENDRICK, discussed plan of care, I had opportunity to ask questions. 1829: Patient arrived to unit with patient health care administrator transporting via gurney. Resource RN got patient settled, as I was in the middle of getting shift change report. Introduced myself after I got report patient was ALOx4, in no apparent distress.
[2019-03-30 20:00] VITALS: BP 97/50
[2019-03-30] MEDS: heparin, porcine 5000 units/ml vial SQ SCH (20:15)
[2019-03-30] MEDS: lactobacillus rhamnosus 10,000 MMU CELLS/CAPSULE PO SCH (20:15)
[2019-03-30] MEDS: donepezil 5mg tablet PO SCH (20:15)
[2019-03-30] MEDS: Melatonin 3mg tablet PO SCH (20:16)
[2019-03-30] MEDS: HYDROmorphone inj. 0.5 MG/0.5 ML DISP.SYRIN IV PRN (20:22)
[2019-03-30] MEDS: ondansetron/PF 4mg/2ml inj IV PRN (20:23)
--- NOTE | 2019-03-30 22:23 | NUR ---
Dialysis pt so urinates very little Addendum: 03/30/19 at 2235 by Jorge Verdin RN Amended: Links added.
[2019-03-31] VITALS: BP 90/46
[2019-03-31] MEDS: finasteride 5mg tablet PO SCH ×2 (00:12→20:43)
[2019-03-31] MEDS: midodrine 5mg tablet PO SCH ×4 (00:13→23:35)
[2019-03-31] MEDS ORDERED: fluticasone nasal spray 16GM bottle NS PRN (00:16)
[2019-03-31] MEDS: piperacillin/tazo 3.375gm/50ml 50 ML IV SCH ×4 (00:37→23:35)
[2019-03-31] MEDS: HYDROmorphone inj. 0.5 MG/0.5 ML DISP.SYRIN IV PRN ×3 (04:27→19:28)
[2019-03-31 05:08] LABS: BASOPHILS # (AUTO) 0.1 X10'3 (0-0.2); BASOPHILS % (AUTO) 0.6 % (0-1); EOSINOPHILS # (AUTO) 0.9 X10'3 (0-0.9); EOSINOPHILS % (AUTO) 6.8 % (0-6); HEMATOCRIT 27.3 % (42.0-52.0); HEMOGLOBIN 8.9 g/dl (14.0-17.9); LYMPHOCYTES # (AUTO) 0.5 X10'3 (1.1-4.8); LYMPHOCYTES % (AUTO) 3.4 % (21-51); MEAN CORPUSCULAR HEMOGLOBIN 28.9 PG (27.0-31.0); MEAN CORPUSCULAR HGB CONC 32.6 g/dL (33.0-36.5); MEAN CORPUSCULAR VOLUME 88.7 FL (78-98); MEAN PLATELET VOLUME 8.2 FL (7.4-10.4); MONOCYTES # (AUTO) 0.2 X10'3 (0-0.9); MONOCYTES % (AUTO) 1.1 % (2-12); NEUTROPHILS # (AUTO) 11.7 X10'3 (1.8-7.7); NEUTROPHILS % (AUTO) 88.1 % (42-75); PLATELET COUNT 85 X10'3 (140-440); RED BLOOD COUNT 3.08 X10'6 (4.70-6.10); RED CELL DISTRIBUTION WIDTH 20.8 % (11.5-14.5); WHITE BLOOD COUNT 13.4 X10'3 (4.5-11.0)
[2019-03-31 05:24] LABS: ALBUMIN 2.8 G/DL (3.4-5.0); ANION GAP 10 (8-16); BLOOD UREA NITROGEN 43 MG/DL (7-18); BUN/CREATININE RATIO 11.3 (5.4-32.0); CALCIUM 9.1 MG/DL (8.5-10.1); CHLORIDE 101 MMOL/L (99-107); CREATININE 3.81 MG/DL (0.60-1.10); GLUCOSE 120 MG/DL (70-104); MAGNESIUM 2.1 MG/DL (1.5-2.4); PHOSPHORUS 3.6 MG/DL (2.3-4.5); POTASSIUM 4.9 MMOL/L (3.5-5.1); SODIUM 136 MMOL/L (135-145); TOTAL CARBON DIOXIDE 25.1 MMOL/L (24-32); eGFR 16 ML/MIN
--- NOTE | 2019-03-31 06:17 | NUR ---
Problems reprioritized. Patient report given, questions answered & plan of care reviewed with AROLDO Beasley.
[2019-03-31 06:53] LABS: ANISOCYTOSIS 3+; PLATELET ESTIMATE DECREASED; TOTAL CELLS COUNTED 100
--- NOTE | 2019-03-31 06:53 | NUR ---
Patient in room [facility] 348. I have received report from LUIS KENDRICK and had the opportunity to ask questions and assume patient care.
[2019-03-31 06:55] LABS: ELLIPTOCYTES 1+; SCHISTOCYTES FEW; TOXIC GRANULATION 1+
[2019-03-31 07:00] VITALS: BP 89/50
[2019-03-31] MEDS: folic acid 1mg tablet PO SCH (07:38)
[2019-03-31] MEDS: citalopram 20mg tablet PO SCH (07:38)
[2019-03-31] MEDS: levoTHYROXINE 75mcg tablet PO SCH (07:38)
[2019-03-31] MEDS: pantoprazole 40mg Tablet.DR PO SCH (07:38)
[2019-03-31] MEDS: sulfamethoxazole/trimethoprim DS (800/160mg) tablet PO SCH (07:39)
[2019-03-31] MEDS: linagliptin 5mg tablet PO SCH (07:41)
[2019-03-31] MEDS: aspirin 81mg tablet.DR PO SCH (07:45)
[2019-03-31] MEDS: lactobacillus rhamnosus 10,000 MMU CELLS/CAPSULE PO SCH ×2 (07:45→20:43)
[2019-03-31] MEDS: ondansetron/PF 4mg/2ml inj IV PRN ×2 (07:49→18:57)
[2019-03-31] MEDS: heparin, porcine 5000 units/ml vial SQ SCH ×2 (08:00→20:00)
[2019-03-31] MEDS ORDERED: heparin 1,000 units/ml 10ml inj HE ONE ×2 (08:00)
[2019-03-31] MEDS ORDERED: heparin 1,000 units/ml 10ml inj IV ONE (08:00)
[2019-03-31] MEDS ORDERED: albumin (human) 25% 100ml IV 100 ML IV PRN (08:00)
[2019-03-31] MEDS ORDERED: heparin 1,000unit/ml 10ml vial 10 ML IV ONE (08:00)
[2019-03-31] MEDS ORDERED: epoetin 20,000 units/ml inj IV ONE (08:00)
[2019-03-31 11:00] VITALS: BP 80/45
[2019-03-31] MEDS ORDERED: midodrine 5mg tablet PO ONE (16:10)
--- NOTE | 2019-03-31 18:30 | NUR ---
Patient in room [facility] 348. I have received report from Gale KENDRICK and had the opportunity to ask questions and assume patient care.
--- NOTE | 2019-03-31 18:42 | NUR ---
patient been dialysed. b/p continues to be low 80/45. given midodrone prior to dialysis. b/p 80-100 systolic during dialysis. patient otherwise stable. will be reviewed by dr segal with regards possible surgery. report given to Caio KENDRICK
[2019-03-31 19:00] VITALS: BP 105/68
[2019-03-31] MEDS: Melatonin 3mg tablet PO SCH (20:43)
[2019-03-31] MEDS: donepezil 5mg tablet PO SCH (20:43)
[2019-03-31] MEDS: temazepam 15mg capsule PO PRN ×2 (20:49→22:46)
[2019-03-31] MEDS ORDERED: albumin (human) 25% 100 ML IV solution IV ONE (23:45)
[2019-03-31] MEDS ORDERED: HYDROcodone/acetaminophen 5mg/325mg tablet PO ONE (23:45)
[2019-04-01] VITALS: BP 86/42
[2019-04-01 01:11] VITALS: BP 92/50
[2019-04-01] MEDS: HYDROmorphone inj. 0.5 MG/0.5 ML DISP.SYRIN IV PRN ×4 (01:13→20:42)
[2019-04-01 04:56] LABS: BASOPHILS % (AUTO) 0.5 % (0-1); EOSINOPHILS # (AUTO) 0.5 X10'3 (0-0.9); EOSINOPHILS % (AUTO) 6.2 % (0-6); HEMATOCRIT 22.3 % (42.0-52.0); HEMOGLOBIN 7.4 g/dl (14.0-17.9); LYMPHOCYTES # (AUTO) 0.2 X10'3 (1.1-4.8); LYMPHOCYTES % (AUTO) 2.7 % (21-51); MEAN CORPUSCULAR HEMOGLOBIN 29.4 PG (27.0-31.0); MEAN CORPUSCULAR HGB CONC 33.4 g/dL (33.0-36.5); MEAN CORPUSCULAR VOLUME 88.2 FL (78-98); MEAN PLATELET VOLUME 8.7 FL (7.4-10.4); MONOCYTES # (AUTO) 0.1 X10'3 (0-0.9); MONOCYTES % (AUTO) 1.3 % (2-12); NEUTROPHILS # (AUTO) 7.9 X10'3 (1.8-7.7); NEUTROPHILS % (AUTO) 89.3 % (42-75); PLATELET COUNT 62 X10'3 (140-440); RED BLOOD COUNT 2.53 X10'6 (4.70-6.10); RED CELL DISTRIBUTION WIDTH 20.6 % (11.5-14.5); WHITE BLOOD COUNT 8.8 X10'3 (4.5-11.0)
[2019-04-01 05:15] VITALS: BP 102/40
[2019-04-01 05:19] LABS: ALBUMIN 3.5 G/DL (3.4-5.0); ANION GAP 14 (8-16); BLOOD UREA NITROGEN 24 MG/DL (7-18); BUN/CREATININE RATIO 8.4 (5.4-32.0); CHLORIDE 100 MMOL/L (99-107); CREATININE 2.85 MG/DL (0.60-1.10); GLUCOSE 98 MG/DL (70-104); MAGNESIUM 1.9 MG/DL (1.5-2.4); PHOSPHORUS 3.1 MG/DL (2.3-4.5); POTASSIUM 4.3 MMOL/L (3.5-5.1); SODIUM 140 MMOL/L (135-145); TOTAL CARBON DIOXIDE 26.3 MMOL/L (24-32); eGFR 22 ML/MIN
--- NOTE | 2019-04-01 06:39 | NUR ---
Problems reprioritized. Patient report given, questions answered & plan of care reviewed with crystal and denise. patient did c/o of SOB and o2 sats were in the 70's. NC was found to be outside of nostrils. NC replaced, and sats in mid to high 90s, titrating back down to 1-2L. Pt no longer c/o sob, and appears comfortable. BP is 100/80.
--- NOTE | 2019-04-01 06:49 | NUR ---
Patient in room [facility] 348. I have received report from laura moses and had the opportunity to ask questions and assume patient care.
[2019-04-01 06:52] LABS: ANISOCYTOSIS 3+; PLATELET ESTIMATE DECREASED; TOTAL CELLS COUNTED 100
[2019-04-01 06:54] LABS: ELLIPTOCYTES 1+; SCHISTOCYTES FEW
[2019-04-01 06:55] LABS: HYPOCHROMASIA 1+
[2019-04-01 07:00] VITALS: BP 85/46
[2019-04-01] MEDS: heparin, porcine 5000 units/ml vial SQ SCH ×2 (08:00→20:00)
[2019-04-01] MEDS: sulfamethoxazole/trimethoprim DS (800/160mg) tablet PO SCH (08:53)
[2019-04-01] MEDS: folic acid 1mg tablet PO SCH (08:53)
[2019-04-01] MEDS: pantoprazole 40mg Tablet.DR PO SCH (08:54)
[2019-04-01] MEDS: citalopram 20mg tablet PO SCH (08:54)
[2019-04-01] MEDS: lactobacillus rhamnosus 10,000 MMU CELLS/CAPSULE PO SCH ×2 (08:54→20:42)
[2019-04-01] MEDS: aspirin 81mg tablet.DR PO SCH (08:55)
[2019-04-01] MEDS: linagliptin 5mg tablet PO SCH (08:55)
[2019-04-01] MEDS: levoTHYROXINE 75mcg tablet PO SCH (08:55)
[2019-04-01] MEDS: midodrine 5mg tablet PO SCH ×3 (08:55→23:43)
[2019-04-01] MEDS: piperacillin/tazo 3.375gm/50ml 50 ML IV SCH ×3 (08:56→23:43)
[2019-04-01 11:00] VITALS: BP 78/45
[2019-04-01] MEDS: mag hydrox/Alum hydrox/simeth 30ml oral suspension PO PRN (11:18)
[2019-04-01] MEDS: ondansetron inj. 24 MG in normal saline 250ml IV soln 228 ML IV SCH (13:02)
[2019-04-01] MEDS ORDERED: sincalide inj 1.6 MCG in normal saline 50ml IV soln 50 ML IV PRN (14:55)
--- NOTE | 2019-04-01 16:48 | NUR ---
patient complaining of nausea. vomited smaall amount following breakfast. Zofran given with minimal effect. DR Sullivan called. Zofran drmeenakshi ordered, amd patient type and screen for 1 unit of blood. Blood bank called to say that patients needs blood sent from [place], will continue to monitor. Patient appears comfortable at this time. Responding to zofran drip.
[2019-04-01] MEDS: HYDROcodone/acetaminophen 10/325mg tab PO PRN ×2 (17:01→23:52)
--- NOTE | 2019-04-01 17:30 | NUR ---
called lab to verify staus of blood. Blood ready one unit of PRBC, but no consent obtained from DR Ndiaye. DR ndiaye called and stated he was not in the hospital, and blood could be given in am. This report was given to Edmond KENDRICK. patient is for HIDA scan in am, must be done before dialysis per DR Ndiaye.
[2019-04-01 18:00] VITALS: BP 100/30
--- NOTE | 2019-04-01 18:00 | NUR ---
Patient in room [facility] 348. I have received report from Gale KENDRICK and had the opportunity to ask questions and assume patient care.
--- NOTE | 2019-04-01 18:30 | NUR ---
Problems reprioritized. Patient report given, questions answered & plan of care reviewed with Edmond moses.
[2019-04-01] MEDS: finasteride 5mg tablet PO SCH (20:42)
[2019-04-01] MEDS: donepezil 5mg tablet PO SCH (20:42)
[2019-04-01] MEDS: Melatonin 3mg tablet PO SCH (20:42)
[2019-04-02] VITALS (8 sets, daily range): BP systolic 72–126; BP diastolic 30–86
[2019-04-02 04:48] LABS: BASOPHILS % (AUTO) 0.4 % (0-1); EOSINOPHILS # (AUTO) 0.6 X10'3 (0-0.9); HEMATOCRIT 22.6 % (42.0-52.0); HEMOGLOBIN 7.5 g/dl (14.0-17.9); LYMPHOCYTES # (AUTO) 0.3 X10'3 (1.1-4.8); LYMPHOCYTES % (AUTO) 3.3 % (21-51); MEAN CORPUSCULAR HEMOGLOBIN 29.1 PG (27.0-31.0); MEAN CORPUSCULAR HGB CONC 33.4 g/dL (33.0-36.5); MEAN CORPUSCULAR VOLUME 87.2 FL (78-98); MEAN PLATELET VOLUME 8.1 FL (7.4-10.4); MONOCYTES # (AUTO) 0.1 X10'3 (0-0.9); MONOCYTES % (AUTO) 1.1 % (2-12); NEUTROPHILS # (AUTO) 8.4 X10'3 (1.8-7.7); NEUTROPHILS % (AUTO) 89.2 % (42-75); PLATELET COUNT 69 X10'3 (140-440); RED BLOOD COUNT 2.59 X10'6 (4.70-6.10); RED CELL DISTRIBUTION WIDTH 20.2 % (11.5-14.5); WHITE BLOOD COUNT 9.5 X10'3 (4.5-11.0)
[2019-04-02 04:58] LABS: ANION GAP 12 (8-16); BLOOD UREA NITROGEN 33 MG/DL (7-18); BUN/CREATININE RATIO 8.6 (5.4-32.0); CALCIUM 8.3 MG/DL (8.5-10.1); CHLORIDE 99 MMOL/L (99-107); CREATININE 3.82 MG/DL (0.60-1.10); GLUCOSE 108 MG/DL (70-104); PHOSPHORUS 4.1 MG/DL (2.3-4.5); POTASSIUM 4.4 MMOL/L (3.5-5.1); SODIUM 139 MMOL/L (135-145); TOTAL CARBON DIOXIDE 28.3 MMOL/L (24-32); eGFR 16 ML/MIN
--- NOTE | 2019-04-02 06:00 | NUR ---
Patient in room [facility] 348. I have received report from Breanna KENDRICK and had the opportunity to ask questions and assume patient care.
--- NOTE | 2019-04-02 06:39 | NUR ---
Problems reprioritized. Patient report given, questions answered & plan of care reviewed with Maricruz KENDRICK and Ely KENDRICK.
[2019-04-02 07:00] LABS: PLATELET ESTIMATE DECREASED
[2019-04-02 07:01] LABS: ANISOCYTOSIS 3+; ELLIPTOCYTES 1+; HYPOCHROMASIA 1+; SCHISTOCYTES FEW
--- NOTE | 2019-04-02 07:50 | NUR ---
Pt has gone down to have hida scan
[2019-04-02] MEDS: heparin, porcine 5000 units/ml vial SQ SCH ×3 (08:00→19:08)
[2019-04-02] MEDS: HYDROcodone/acetaminophen 10/325mg tab PO PRN ×2 (08:31→16:44)
[2019-04-02] MEDS: piperacillin/tazo 3.375gm/50ml 50 ML IV SCH ×2 (10:21→19:27)
[2019-04-02] MEDS: sulfamethoxazole/trimethoprim DS (800/160mg) tablet PO SCH (10:21)
[2019-04-02] MEDS: citalopram 20mg tablet PO SCH (10:22)
[2019-04-02] MEDS: pantoprazole 40mg Tablet.DR PO SCH (10:22)
[2019-04-02] MEDS: folic acid 1mg tablet PO SCH (10:22)
[2019-04-02] MEDS: aspirin 81mg tablet.DR PO SCH (10:22)
[2019-04-02] MEDS: lactobacillus rhamnosus 10,000 MMU CELLS/CAPSULE PO SCH ×2 (10:22→20:59)
[2019-04-02] MEDS: linagliptin 5mg tablet PO SCH (10:22)
[2019-04-02] MEDS: levoTHYROXINE 75mcg tablet PO SCH (10:22)
[2019-04-02] MEDS: midodrine 5mg tablet PO SCH ×3 (10:22→23:38)
[2019-04-02] MEDS: ondansetron inj. 24 MG in normal saline 250ml IV soln 228 ML IV SCH (12:40)
--- NOTE | 2019-04-02 13:06 | NUR ---
Problems reprioritized. Patient report given, questions answered & plan of care reviewed with AROLDO Mitchell.
[2019-04-02] MEDS ORDERED: LIDOcaine 2% 10ml TOPICAL JELLY (Urojet) MM ONE (14:00)
[2019-04-02] MEDS ORDERED: midodrine 5mg tablet PO ONE (14:55)
[2019-04-02] MEDS ORDERED: heparin 1,000unit/ml 10ml vial 10 ML IV ONE (15:12)
[2019-04-02] MEDS ORDERED: albumin (human) 25% 100ml IV 100 ML IV PRN (15:15)
[2019-04-02] MEDS ORDERED: epoetin 20,000 units/ml inj IV ONE (15:15)
[2019-04-02] MEDS ORDERED: heparin 1,000 units/ml 10ml inj HE ONE ×2 (15:20)
--- NOTE | 2019-04-02 18:00 | NUR ---
Patient in room [facility] 348. I have received report from Mae KENDRICK and Paula KENDRICK and had the opportunity to ask questions and assume patient care.
--- NOTE | 2019-04-02 18:40 | NUR ---
Problems reprioritized. Patient report given, questions answered & plan of care reviewed with Edmond KENDRICK.
[2019-04-02] MEDS: HYDROmorphone inj. 0.5 MG/0.5 ML DISP.SYRIN IV PRN (19:13)
[2019-04-02] MEDS: finasteride 5mg tablet PO SCH (20:59)
[2019-04-02] MEDS: donepezil 5mg tablet PO SCH (20:59)
[2019-04-02] MEDS: Melatonin 3mg tablet PO SCH (20:59)
[2019-04-03] VITALS: BP 89/30
[2019-04-03 05:20] LABS: BASOPHILS % (AUTO) 0.5 % (0-1); EOSINOPHILS # (AUTO) 0.7 X10'3 (0-0.9); EOSINOPHILS % (AUTO) 7.2 % (0-6); HEMATOCRIT 26.3 % (42.0-52.0); HEMOGLOBIN 8.9 g/dl (14.0-17.9); LYMPHOCYTES # (AUTO) 0.3 X10'3 (1.1-4.8); LYMPHOCYTES % (AUTO) 3.2 % (21-51); MEAN CORPUSCULAR HEMOGLOBIN 29.9 PG (27.0-31.0); MEAN CORPUSCULAR HGB CONC 33.9 g/dL (33.0-36.5); MEAN CORPUSCULAR VOLUME 88.2 FL (78-98); MEAN PLATELET VOLUME 8.6 FL (7.4-10.4); MONOCYTES # (AUTO) 0.1 X10'3 (0-0.9); MONOCYTES % (AUTO) 1.1 % (2-12); NEUTROPHILS # (AUTO) 8.2 X10'3 (1.8-7.7); PLATELET COUNT 59 X10'3 (140-440); RED BLOOD COUNT 2.98 X10'6 (4.70-6.10); RED CELL DISTRIBUTION WIDTH 19.1 % (11.5-14.5); WHITE BLOOD COUNT 9.3 X10'3 (4.5-11.0)
[2019-04-03 05:52] LABS: ANISOCYTOSIS 2+; ELLIPTOCYTES FEW; HYPOCHROMASIA 1+; PLATELET ESTIMATE DECREASED
[2019-04-03 06:01] LABS: ALBUMIN 2.8 G/DL (3.4-5.0); ANION GAP 11 (8-16); BLOOD UREA NITROGEN 26 MG/DL (7-18); CALCIUM 7.9 MG/DL (8.5-10.1); CHLORIDE 100 MMOL/L (99-107); CREATININE 2.89 MG/DL (0.60-1.10); GLUCOSE 94 MG/DL (70-104); PHOSPHORUS 3.6 MG/DL (2.3-4.5); SODIUM 138 MMOL/L (135-145); eGFR 22 ML/MIN
--- NOTE | 2019-04-03 06:40 | NUR ---
Problems reprioritized. Patient report given, questions answered & plan of care reviewed with Yaima KENDRICK.
--- NOTE | 2019-04-03 06:43 | NUR ---
Patient in room [facility] 348. I have received report from AROLDO Pruitt and had the opportunity to ask questions and assume patient care.
[2019-04-03 08:00] VITALS: BP 83/47
[2019-04-03] MEDS: heparin, porcine 5000 units/ml vial SQ SCH ×2 (08:00→20:00)
[2019-04-03] MEDS: aspirin 81mg tablet.DR PO SCH (08:49)
[2019-04-03] MEDS: levoTHYROXINE 75mcg tablet PO SCH (08:49)
[2019-04-03] MEDS: pantoprazole 40mg Tablet.DR PO SCH (08:49)
[2019-04-03] MEDS: folic acid 1mg tablet PO SCH (08:50)
[2019-04-03] MEDS: lactobacillus rhamnosus 10,000 MMU CELLS/CAPSULE PO SCH ×2 (08:50→20:11)
[2019-04-03] MEDS: midodrine 5mg tablet PO SCH ×3 (08:50→23:32)
[2019-04-03] MEDS: linagliptin 5mg tablet PO SCH (08:50)
[2019-04-03] MEDS: citalopram 20mg tablet PO SCH (08:50)
[2019-04-03] MEDS: piperacillin/tazo 3.375gm/50ml 50 ML IV SCH ×3 (08:51→23:32)
[2019-04-03] MEDS: sulfamethoxazole/trimethoprim DS (800/160mg) tablet PO SCH (08:51)
[2019-04-03 11:00] VITALS: BP 85/32
--- NOTE | 2019-04-03 12:30 | NUR ---
I talked to Tamar Torres about patient having lower temperatures and she is aware, no new orders, she says it is cold in room and he does not have much body fat. We also talked about various other issues because this is the first time I have had this pt. It appears that there have not been many changes and she is aware of most of my concerns. She is now aware of loose stools which we are monitoring. Pt has only had 1 stool so far today with noted small amount of bleeding (pt states hemmoriods) and some slight leaking of stool from rectum. according to NOC RN there were no bm's last night although yesterday apparently he had many stools. Pt not nauseas today and minimal pain complaints. Loretta thomas.
--- NOTE | 2019-04-03 13:16 | NUR ---
aware of low temp and bp. pt has various medical issues, ESRD, chronic anemia Addendum: 04/03/19 at 1329 by Lucia Buckner RN Amended: Links added.
--- NOTE | 2019-04-03 18:10 | NUR ---
Patient in room [facility] 348. I have received report from Lucia KENDRICK/Yaima RN and had the opportunity to ask questions and assume patient care.
--- NOTE | 2019-04-03 18:28 | NUR ---
Problems reprioritized. Patient report given, questions answered & plan of care reviewed with AROLDO Pruitt.
[2019-04-03 20:01] VITALS: BP 104/42
[2019-04-03] MEDS: finasteride 5mg tablet PO SCH (20:11)
[2019-04-03] MEDS: Melatonin 3mg tablet PO SCH (20:11)
[2019-04-03] MEDS: donepezil 5mg tablet PO SCH (20:11)
[2019-04-04 00:10] VITALS: BP 94/44
[2019-04-04 05:07] LABS: BASOPHILS # (AUTO) 0.1 X10'3 (0-0.2); BASOPHILS % (AUTO) 0.5 % (0-1); EOSINOPHILS % (AUTO) 6.7 % (0-6); HEMATOCRIT 27.4 % (42.0-52.0); HEMOGLOBIN 9.1 g/dl (14.0-17.9); LYMPHOCYTES # (AUTO) 0.6 X10'3 (1.1-4.8); LYMPHOCYTES % (AUTO) 4.3 % (21-51); MEAN CORPUSCULAR HGB CONC 33.3 g/dL (33.0-36.5); MEAN CORPUSCULAR VOLUME 87.2 FL (78-98); MEAN PLATELET VOLUME 8.8 FL (7.4-10.4); MONOCYTES # (AUTO) 0.2 X10'3 (0-0.9); MONOCYTES % (AUTO) 1.5 % (2-12); PLATELET COUNT 68 X10'3 (140-440); RED BLOOD COUNT 3.14 X10'6 (4.70-6.10); RED CELL DISTRIBUTION WIDTH 20.1 % (11.5-14.5); WHITE BLOOD COUNT 14.9 X10'3 (4.5-11.0)
[2019-04-04 05:23] LABS: ALBUMIN 2.8 G/DL (3.4-5.0); ANION GAP 11 (8-16); BLOOD UREA NITROGEN 35 MG/DL (7-18); BUN/CREATININE RATIO 9.9 (5.4-32.0); CHLORIDE 99 MMOL/L (99-107); CREATININE 3.53 MG/DL (0.60-1.10); GLUCOSE 119 MG/DL (70-104); PHOSPHORUS 4.2 MG/DL (2.3-4.5); POTASSIUM 4.2 MMOL/L (3.5-5.1); SODIUM 136 MMOL/L (135-145); TOTAL CARBON DIOXIDE 26.2 MMOL/L (24-32); eGFR 17 ML/MIN
[2019-04-04] MEDS: heparin, porcine 5000 units/ml vial SQ SCH ×2 (06:30→20:00)
--- NOTE | 2019-04-04 06:31 | NUR ---
Patient in room [facility] 348. I have received report from Edmond KENDRICK and had the opportunity to ask questions and assume patient care.
--- NOTE | 2019-04-04 06:37 | NUR ---
Problems reprioritized. Patient report given, questions answered & plan of care reviewed with Birgit KENDRICK.
[2019-04-04 07:26] VITALS: BP 82/44
[2019-04-04] MEDS: lactobacillus rhamnosus 10,000 MMU CELLS/CAPSULE PO SCH ×2 (07:58→20:07)
[2019-04-04] MEDS: aspirin 81mg tablet.DR PO SCH (07:58)
[2019-04-04] MEDS: pantoprazole 40mg Tablet.DR PO SCH (07:58)
[2019-04-04] MEDS: sulfamethoxazole/trimethoprim DS (800/160mg) tablet PO SCH (07:58)
[2019-04-04] MEDS: midodrine 5mg tablet PO SCH ×2 (07:58→16:47)
[2019-04-04] MEDS: citalopram 20mg tablet PO SCH (07:58)
[2019-04-04] MEDS: levoTHYROXINE 75mcg tablet PO SCH (07:58)
[2019-04-04] MEDS: linagliptin 5mg tablet PO SCH (07:58)
[2019-04-04] MEDS: piperacillin/tazo 3.375gm/50ml 50 ML IV SCH ×3 (07:58→23:57)
[2019-04-04] MEDS: folic acid 1mg tablet PO SCH (07:58)
[2019-04-04 12:00] VITALS: BP 84/47
--- NOTE | 2019-04-04 12:44 | NUR ---
Order to hold ASA for tomorrows Paracentesis, 04/05/19. Order placed in nursing communication under interventions. No need to put patient NPO at this time. Patient educated as well as the family at bedside on orders placed.
[2019-04-04] MEDS ORDERED: loperamide 2mg capsule PO ONE (13:00)
[2019-04-04] MEDS: ondansetron/PF 4mg/2ml inj IV PRN (13:25)
--- NOTE | 2019-04-04 14:26 | NUR ---
Initial: Pt admit w/ vomiting and large abdominal ascites. Hx ESRD on HD and cholelithiasis w/ cholecystostomy drain out of place now d/c'd per MD note. Also hx anemia secondary to myelofibrosis requiring frequent transfusions per MD note. Pending paracentesis and possible cholecystectomy per MD. Pt has multiple BM's unsure if error but documented x10 9/6, x3 9/7, and one BM so far today. Pt s/p HD and noted feels much better per MD note today s/p bladder drainage and irrigation. PO 0% first 3 days but now 50-75% avg meals since feeling better. Will monitor for additional protein needs as PO improves. Rec: 1. continue renal diet 2. monitor for ONS needs as PO improves 3. wt w/ HD Addendum: 04/04/19 at [address] Amended: Links added.
--- NOTE | 2019-04-04 18:39 | NUR ---
Patient in room [facility] 348. I have received report from Juana KENDRICK and had the opportunity to ask questions and assume patient care.
--- NOTE | 2019-04-04 18:40 | NUR ---
Problems reprioritized. Patient report given, questions answered & plan of care reviewed with JOSE RAFAEL KENDRICK.
[2019-04-04 20:00] VITALS: BP 90/35
[2019-04-04] MEDS: proCHLORperazine 10 MG/2 ml inj IV PRN (20:06)
[2019-04-04] MEDS: Melatonin 3mg tablet PO SCH (20:07)
[2019-04-04] MEDS: finasteride 5mg tablet PO SCH (20:08)
[2019-04-04] MEDS: donepezil 5mg tablet PO SCH (20:08)
[2019-04-04] MEDS: HYDROcodone/acetaminophen 10/325mg tab PO PRN (20:34)
[2019-04-05] VITALS (12 sets, daily range): BP systolic 70–97; BP diastolic 31–49
[2019-04-05] MEDS: midodrine 5mg tablet PO SCH ×4 (00:03→23:42)
--- NOTE | 2019-04-05 06:30 | NUR ---
Patient in room [facility] 341. I have received report from Jazmyne KENDRICK and had the opportunity to ask questions and assume patient care. Patient resting eyes closed respirations even.
--- NOTE | 2019-04-05 06:32 | NUR ---
Problems reprioritized. Patient report given, questions answered & plan of care reviewed with Viji KENDRICK and Yaima KENDRICK.
[2019-04-05] MEDS: heparin, porcine 5000 units/ml vial SQ SCH (07:31)
[2019-04-05] MEDS: aspirin 81mg tablet.DR PO SCH (07:32)
[2019-04-05] MEDS: piperacillin/tazo 3.375gm/50ml 50 ML IV SCH ×3 (08:35→23:42)
[2019-04-05] MEDS: sulfamethoxazole/trimethoprim DS (800/160mg) tablet PO SCH (08:36)
[2019-04-05] MEDS: linagliptin 5mg tablet PO SCH (08:37)
[2019-04-05] MEDS: levoTHYROXINE 75mcg tablet PO SCH (08:38)
[2019-04-05] MEDS: lactobacillus rhamnosus 10,000 MMU CELLS/CAPSULE PO SCH ×2 (08:39→20:55)
[2019-04-05] MEDS: pantoprazole 40mg Tablet.DR PO SCH (08:39)
[2019-04-05] MEDS: folic acid 1mg tablet PO SCH (08:40)
[2019-04-05] MEDS: citalopram 20mg tablet PO SCH (08:40)
[2019-04-05] MEDS: ondansetron/PF 4mg/2ml inj IV PRN ×2 (08:45→20:51)
[2019-04-05] MEDS: HYDROcodone/acetaminophen 5mg/325mg tablet PO PRN (11:03)
[2019-04-05] MEDS ORDERED: albumin (human) 25% 100 ML IV solution IV ONE ×2 (11:30→14:00)
--- NOTE | 2019-04-05 11:45 | NUR ---
Paracentesis completed by Dr. Dodge, approximately 5 L off, order placed for albumin 25%, will continue to monitor.
[2019-04-05] MEDS: fludrocortisone acetate 0.1mg tablet PO PRN (12:06)
[2019-04-05 12:25] LABS: C DIFF ANTIGEN NEGATIVE (NEGATIVE); C DIFF SPECIMEN=DIARRHEA? ACCEPTABLE; C DIFFICILE TOXINS A&B NEGATIVE (Neg)
--- NOTE | 2019-04-05 13:50 | NUR ---
Discussed with Dr. Rascon that the patient's BP remains low 80s after 1 bottle of 25% albumin. Received order for 1 additional bottle of 25% and to give 1600 midodrine now. Will continue to monitor.
--- NOTE | 2019-04-05 14:00 | NUR ---
Patient's , Lashell and Dr. Rascon discussed deteriorating condition and that at this time he is a full code which means that 10-15 people will come into room and begin CPR. Discussed DNR status for compassion. Lashell requested that staff not discuss with patient until she can discuss it and she understands that he is degrading. Will continue to monitor.
[2019-04-05] MEDS: mag hydrox/Alum hydrox/simeth 30ml oral suspension PO PRN (14:10)
--- NOTE | 2019-04-05 15:25 | NUR ---
Albumin finished BP 82/48 HR 83, will continue to monitor.
--- NOTE | 2019-04-05 18:37 | NUR ---
Patient in room [facility] 341. I have received report from AROLDO Hallman and had the opportunity to ask questions and assume patient care.
--- NOTE | 2019-04-05 18:56 | NUR ---
Problems reprioritized. Patient report given, questions answered & plan of care reviewed with Tray KENDRICK. Resting at bedside
[2019-04-05] MEDS: finasteride 5mg tablet PO SCH (20:55)
[2019-04-05] MEDS: donepezil 5mg tablet PO SCH (20:55)
[2019-04-05] MEDS: Melatonin 3mg tablet PO SCH (20:55)
[2019-04-06] VITALS (9 sets, daily range): BP systolic 71–100; BP diastolic 29–61
--- NOTE | 2019-04-06 06:28 | NUR ---
Problems reprioritized. Patient report given, questions answered & plan of care reviewed with AROLDO Mcmahon.
--- NOTE | 2019-04-06 06:30 | NUR ---
Patient in room [facility] 341. I have received report from AROLDO Feliz and had the opportunity to ask questions and assume patient care.
[2019-04-06] MEDS: piperacillin/tazo 3.375gm/50ml 50 ML IV SCH ×2 (07:39→21:14)
[2019-04-06] MEDS: aspirin 81mg tablet.DR PO SCH (07:39)
[2019-04-06] MEDS: ondansetron/PF 4mg/2ml inj IV PRN ×3 (07:40→21:26)
[2019-04-06] MEDS: midodrine 5mg tablet PO SCH ×3 (07:40→23:46)
[2019-04-06] MEDS: levoTHYROXINE 75mcg tablet PO SCH (07:40)
[2019-04-06] MEDS: sulfamethoxazole/trimethoprim DS (800/160mg) tablet PO SCH (07:40)
[2019-04-06] MEDS: pantoprazole 40mg Tablet.DR PO SCH (07:40)
[2019-04-06] MEDS: linagliptin 5mg tablet PO SCH (07:40)
[2019-04-06] MEDS: citalopram 20mg tablet PO SCH (07:40)
[2019-04-06] MEDS: lactobacillus rhamnosus 10,000 MMU CELLS/CAPSULE PO SCH ×2 (07:40→21:20)
[2019-04-06] MEDS: folic acid 1mg tablet PO SCH (07:40)
[2019-04-06] MEDS ORDERED: albumin (human) 25% 100ml IV 100 ML IV PRN (08:40)
[2019-04-06] MEDS ORDERED: heparin 1,000unit/ml 10ml vial 10 ML IV ONE (08:40)
[2019-04-06] MEDS ORDERED: heparin 1,000 units/ml 10ml inj IV ONE (08:40)
[2019-04-06] MEDS ORDERED: epoetin 20,000 units/ml inj IV ONE (08:40)
[2019-04-06] MEDS ORDERED: heparin 1,000 units/ml 10ml inj HE ONE ×2 (08:45)
[2019-04-06 08:53] LABS: BASOPHILS # (AUTO) 0.1 X10'3 (0-0.2); BASOPHILS % (AUTO) 0.7 % (0-1); EOSINOPHILS # (AUTO) 1.1 X10'3 (0-0.9); HEMATOCRIT 26.7 % (42.0-52.0); HEMOGLOBIN 8.7 g/dl (14.0-17.9); LYMPHOCYTES # (AUTO) 0.9 X10'3 (1.1-4.8); MEAN CORPUSCULAR HEMOGLOBIN 28.1 PG (27.0-31.0); MEAN CORPUSCULAR HGB CONC 32.7 g/dL (33.0-36.5); MEAN CORPUSCULAR VOLUME 86.1 FL (78-98); MONOCYTES # (AUTO) 0.3 X10'3 (0-0.9); MONOCYTES % (AUTO) 1.4 % (2-12); NEUTROPHILS # (AUTO) 15.8 X10'3 (1.8-7.7); NEUTROPHILS % (AUTO) 86.9 % (42-75); PLATELET COUNT 57 X10'3 (140-440); RED CELL DISTRIBUTION WIDTH 19.6 % (11.5-14.5); WHITE BLOOD COUNT 18.2 X10'3 (4.5-11.0)
[2019-04-06 09:01] LABS: ALBUMIN 2.9 G/DL (3.4-5.0); ANION GAP 13 (8-16); BLOOD UREA NITROGEN 53 MG/DL (7-18); BUN/CREATININE RATIO 10.4 (5.4-32.0); CALCIUM 7.7 MG/DL (8.5-10.1); CHLORIDE 95 MMOL/L (99-107); CREATININE 5.09 MG/DL (0.60-1.10); GLUCOSE 107 MG/DL (70-104); POTASSIUM 4.2 MMOL/L (3.5-5.1); SODIUM 132 MMOL/L (135-145); TOTAL CARBON DIOXIDE 23.8 MMOL/L (24-32); eGFR 11 ML/MIN
--- NOTE | 2019-04-06 11:47 | NUR ---
Called Dr. Rascon to notify him of BP. pts SBP consistently in the 70's, MAP less than 60. BP checked manually and automatic. Pt alert and oriented and talking, denies dizziness just states he is weak. stated "he's fine, leave him alone"
[2019-04-06] MEDS: midodrine 5mg tablet PO PRN (14:37)
--- NOTE | 2019-04-06 17:01 | NUR ---
Dr. Rascon at bedside and stated only take pts BP on right forearm as that is the most accurate.
--- NOTE | 2019-04-06 17:28 | NUR ---
Notified Dr. Rascon that pt is a diabetic and we have not been checking his BG and he is not on protocol. stated to placed pt on protocol and check BG ACHS.
[2019-04-06] MEDS ORDERED: dextrose ORAL solution 15 GM/59 ML bottle PO PRN ×2 (17:30)
[2019-04-06] MEDS ORDERED: glucagon, human recombinant 1mg kit SUBCUT PRN (17:30)
[2019-04-06] MEDS ORDERED: MESSAGE TO PHARMACY PO ONE (17:30)
[2019-04-06] MEDS ORDERED: dextrose 50%-water 50ml dispensing syringe IV PRN ×2 (17:30)
[2019-04-06] MEDS ORDERED: insulin Lispro (HumaLOG) vial - multi-dose SQ SCH (17:30)
--- NOTE | 2019-04-06 18:03 | NUR ---
Problems reprioritized. Patient report given, questions answered & plan of care reviewed with AROLDO Root.
--- NOTE | 2019-04-06 18:30 | NUR ---
Patient in room [facility] 341. I have received report from AROLDO Mcmahon and had the opportunity to ask questions and assume patient care.
[2019-04-06] MEDS: insulin glargine (Lantus) pen - multi-dose SQ SCH (21:00)
[2019-04-06] MEDS: Melatonin 3mg tablet PO SCH (21:20)
[2019-04-06] MEDS: donepezil 5mg tablet PO SCH (21:20)
--- NOTE | 2019-04-06 21:42 | NUR ---
Patient is refusing accucheck at 2100
[2019-04-06] MEDS: finasteride 5mg tablet PO SCH (21:47)
--- NOTE | 2019-04-07 06:27 | NUR ---
Problems reprioritized. Patient report given, questions answered & plan of care reviewed with AROLDO Mcmahon.
[2019-04-07 08:00] VITALS: BP 82/38
[2019-04-07] MEDS: fludrocortisone acetate 0.1mg tablet PO PRN (09:30)
[2019-04-07] MEDS: linagliptin 5mg tablet PO SCH (09:30)
[2019-04-07] MEDS: aspirin 81mg tablet.DR PO SCH (09:32)
[2019-04-07] MEDS: citalopram 20mg tablet PO SCH (09:32)
[2019-04-07] MEDS: lactobacillus rhamnosus 10,000 MMU CELLS/CAPSULE PO SCH ×2 (09:32→20:25)
[2019-04-07] MEDS: folic acid 1mg tablet PO SCH (09:32)
[2019-04-07] MEDS: pantoprazole 40mg Tablet.DR PO SCH (09:32)
[2019-04-07] MEDS: midodrine 5mg tablet PO SCH ×2 (09:33→17:34)
[2019-04-07] MEDS: levoTHYROXINE 75mcg tablet PO SCH (09:33)
[2019-04-07] MEDS: ondansetron/PF 4mg/2ml inj IV PRN ×2 (09:35→20:16)
[2019-04-07] MEDS: piperacillin/tazo 3.375gm/50ml 50 ML IV SCH ×2 (09:53→20:19)
[2019-04-07 10:12] LABS: BASOPHILS # (AUTO) 0.1 X10'3 (0-0.2); BASOPHILS % (AUTO) 0.4 % (0-1); EOSINOPHILS # (AUTO) 0.9 X10'3 (0-0.9); HEMATOCRIT 24.6 % (42.0-52.0); HEMOGLOBIN 8.1 g/dl (14.0-17.9); LYMPHOCYTES # (AUTO) 0.6 X10'3 (1.1-4.8); MEAN CORPUSCULAR HEMOGLOBIN 28.6 PG (27.0-31.0); MEAN CORPUSCULAR HGB CONC 33.1 g/dL (33.0-36.5); MEAN CORPUSCULAR VOLUME 86.5 FL (78-98); MEAN PLATELET VOLUME 8.8 FL (7.4-10.4); MONOCYTES # (AUTO) 0.2 X10'3 (0-0.9); MONOCYTES % (AUTO) 1.4 % (2-12); NEUTROPHILS # (AUTO) 12.4 X10'3 (1.8-7.7); NEUTROPHILS % (AUTO) 88.2 % (42-75); RED BLOOD COUNT 2.84 X10'6 (4.70-6.10); RED CELL DISTRIBUTION WIDTH 19.6 % (11.5-14.5); WHITE BLOOD COUNT 14.1 X10'3 (4.5-11.0)
[2019-04-07 10:16] LABS: PLATELET COUNT 44 X10'3 (140-440)
[2019-04-07 10:20] LABS: ALBUMIN 2.8 G/DL (3.4-5.0); ANION GAP 10 (8-16); BLOOD UREA NITROGEN 31 MG/DL (7-18); CALCIUM 7.7 MG/DL (8.5-10.1); CHLORIDE 100 MMOL/L (99-107); CREATININE 3.43 MG/DL (0.60-1.10); GLUCOSE 103 MG/DL (70-104); POTASSIUM 3.9 MMOL/L (3.5-5.1); SODIUM 138 MMOL/L (135-145); TOTAL CARBON DIOXIDE 27.8 MMOL/L (24-32); eGFR 18 ML/MIN
[2019-04-07 10:59] LABS: ANISOCYTOSIS 2+; PLATELET ESTIMATE DECREASED
[2019-04-07 11:00] VITALS: BP 100/39
[2019-04-07 11:00] LABS: ELLIPTOCYTES FEW; HYPOCHROMASIA 1+
[2019-04-07 18:00] VITALS: BP 101/33
--- NOTE | 2019-04-07 18:40 | NUR ---
Problems reprioritized. Patient report given, questions answered & plan of care reviewed with AROLDO Feliz.
--- NOTE | 2019-04-07 18:41 | NUR ---
Patient in room [facility] 341. I have received report from AROLDO Mcmahon and had the opportunity to ask questions and assume patient care.
[2019-04-07] MEDS: donepezil 5mg tablet PO SCH (20:25)
[2019-04-07] MEDS: finasteride 5mg tablet PO SCH (20:26)
[2019-04-07] MEDS: Melatonin 3mg tablet PO SCH (20:26)
[2019-04-07] MEDS: temazepam 15mg capsule PO PRN ×2 (20:26→22:01)
[2019-04-07] MEDS: insulin glargine (Lantus) pen - multi-dose SQ SCH (21:00)
--- NOTE | 2019-04-07 21:00 | NUR ---
Pt refused 2100 blood sugar check
[2019-04-07] MEDS ORDERED: loperamide 2mg capsule PO ONE (22:40)
[2019-04-08] VITALS: BP 102/39
[2019-04-08] MEDS: midodrine 5mg tablet PO SCH ×4 (00:27→23:44)
[2019-04-08 04:55] LABS: BASOPHILS # (AUTO) 0.1 X10'3 (0-0.2); BASOPHILS % (AUTO) 0.6 % (0-1); EOSINOPHILS # (AUTO) 0.9 X10'3 (0-0.9); EOSINOPHILS % (AUTO) 5.9 % (0-6); HEMATOCRIT 23.9 % (42.0-52.0); LYMPHOCYTES # (AUTO) 0.8 X10'3 (1.1-4.8); LYMPHOCYTES % (AUTO) 5.2 % (21-51); MEAN CORPUSCULAR HEMOGLOBIN 28.7 PG (27.0-31.0); MEAN CORPUSCULAR HGB CONC 33.5 g/dL (33.0-36.5); MEAN CORPUSCULAR VOLUME 85.7 FL (78-98); MEAN PLATELET VOLUME 8.7 FL (7.4-10.4); MONOCYTES # (AUTO) 0.2 X10'3 (0-0.9); MONOCYTES % (AUTO) 1.6 % (2-12); NEUTROPHILS # (AUTO) 13.3 X10'3 (1.8-7.7); NEUTROPHILS % (AUTO) 86.7 % (42-75); PLATELET COUNT 53 X10'3 (140-440); RED BLOOD COUNT 2.79 X10'6 (4.70-6.10); RED CELL DISTRIBUTION WIDTH 19.6 % (11.5-14.5); WHITE BLOOD COUNT 15.3 X10'3 (4.5-11.0)
[2019-04-08 05:00] LABS: ALBUMIN 2.7 G/DL (3.4-5.0); ANION GAP 12 (8-16); BLOOD UREA NITROGEN 35 MG/DL (7-18); BUN/CREATININE RATIO 8.6 (5.4-32.0); CALCIUM 7.7 MG/DL (8.5-10.1); CHLORIDE 100 MMOL/L (99-107); CREATININE 4.07 MG/DL (0.60-1.10); GLUCOSE 98 MG/DL (70-104); POTASSIUM 3.9 MMOL/L (3.5-5.1); SODIUM 137 MMOL/L (135-145); TOTAL CARBON DIOXIDE 25.2 MMOL/L (24-32); eGFR 15 ML/MIN
--- NOTE | 2019-04-08 06:29 | NUR ---
Problems reprioritized. Patient report given, questions answered & plan of care reviewed with AROLDO Weems.
[2019-04-08] MEDS: linagliptin 5mg tablet PO SCH (08:00)
[2019-04-08] MEDS ORDERED: epoetin 20,000 units/ml inj IV ONE (08:15)
[2019-04-08] MEDS ORDERED: albumin (human) 25% 100ml IV 100 ML IV PRN (08:15)
[2019-04-08] MEDS ORDERED: heparin 1,000 units/ml 10ml inj HE ONE ×2 (08:20)
[2019-04-08] MEDS: pantoprazole 40mg Tablet.DR PO SCH (09:06)
[2019-04-08] MEDS: aspirin 81mg tablet.DR PO SCH (09:06)
[2019-04-08] MEDS: lactobacillus rhamnosus 10,000 MMU CELLS/CAPSULE PO SCH ×2 (09:06→19:48)
[2019-04-08] MEDS: levoTHYROXINE 75mcg tablet PO SCH (09:06)
[2019-04-08] MEDS: folic acid 1mg tablet PO SCH (09:06)
[2019-04-08] MEDS: citalopram 20mg tablet PO SCH (09:06)
[2019-04-08] MEDS: piperacillin/tazo 3.375gm/50ml 50 ML IV SCH ×2 (09:07→20:00)
[2019-04-08] MEDS: midodrine 5mg tablet PO PRN (09:15)
[2019-04-08] MEDS: ondansetron/PF 4mg/2ml inj IV PRN (10:43)
[2019-04-08] MEDS: HYDROcodone/acetaminophen 5mg/325mg tablet PO PRN (11:09)
[2019-04-08] MEDS ORDERED: HYDROmorphone inj. 0.5 MG/0.5 ML DISP.SYRIN IV ONE (11:45)
--- NOTE | 2019-04-08 11:53 | NUR ---
Patient is receiving dialysis now and patients son came out to ask if he can have something for pain. Patients was given Ort[place] 30 min prior. Patients son would also like to know if they can get immodium and ambien for the patient. Patients current BP is 120/43, called Dr Rascon and he is aware of the above. Received orders for a one time dose of 0.5mg IV Dilaudid, Imodium orders and per Dr Rascon he does not want to have the patient taking Ambien. I notified the patients son and patient and they are ok with this order. Kami KENDRICK will administer medications Per MD orders
[2019-04-08] MEDS: loperamide 2mg capsule PO PRN ×2 (11:59→21:00)
[2019-04-08 12:00] VITALS: BP 75/41
--- NOTE | 2019-04-08 13:36 | NUR ---
reassessment: Pt PO consistent 50% avg meals. LBM 04/07. Per MD note family determining code status at this time given prognosis. Nepro TIDWM added for additional needs; pending MD approval. Will monitor for changes in code status. Rec: 1. continue renal diet 2. Nepro TIDWM 3. wt w/ HD Addendum: 04/08/19 at [address] Amended: Links added.
--- NOTE | 2019-04-08 15:58 | NUR ---
Dr Rascon wants orders for Dilaudid 0.5mg IV Q4h PRN pain ok to given even if patients SBP is 70's or 80's, Also, received orders for [place] 10/325 Q4h Prn for pain with same parameters.
[2019-04-08] MEDS ORDERED: HYDROcodone/acetaminophen 10/325mg tab PO PRN (16:00)
[2019-04-08] MEDS: NUT.TX.IMP.RENAL FXN,LAC-REDUC (Nepro) 237 ML VANILLA PO SCH (18:16)
--- NOTE | 2019-04-08 18:30 | NUR ---
Patient in room [facility] 341. I have received report from Faustina KENDRICK and had the opportunity to ask questions and assume patient care.
[2019-04-08 19:00] VITALS: BP 82/40
[2019-04-08] MEDS: temazepam 15mg capsule PO PRN (19:53)
[2019-04-08] MEDS: Melatonin 3mg tablet PO SCH (21:00)
[2019-04-08] MEDS: donepezil 5mg tablet PO SCH (21:00)
[2019-04-08] MEDS: finasteride 5mg tablet PO SCH (21:00)
[2019-04-08] MEDS: insulin glargine (Lantus) pen - multi-dose SQ SCH (21:00)
[2019-04-09 00:01] VITALS: BP 80/34
[2019-04-09 05:16] LABS: BASOPHILS # (AUTO) 0.1 X10'3 (0-0.2); BASOPHILS % (AUTO) 0.7 % (0-1); EOSINOPHILS # (AUTO) 0.5 X10'3 (0-0.9); HEMATOCRIT 24.3 % (42.0-52.0); LYMPHOCYTES # (AUTO) 0.6 X10'3 (1.1-4.8); LYMPHOCYTES % (AUTO) 4.5 % (21-51); MEAN CORPUSCULAR HEMOGLOBIN 28.3 PG (27.0-31.0); MEAN CORPUSCULAR HGB CONC 33.1 g/dL (33.0-36.5); MEAN CORPUSCULAR VOLUME 85.6 FL (78-98); MEAN PLATELET VOLUME 8.5 FL (7.4-10.4); MONOCYTES # (AUTO) 0.1 X10'3 (0-0.9); MONOCYTES % (AUTO) 1.1 % (2-12); NEUTROPHILS % (AUTO) 89.7 % (42-75); PLATELET COUNT 52 X10'3 (140-440); RED BLOOD COUNT 2.83 X10'6 (4.70-6.10); RED CELL DISTRIBUTION WIDTH 19.5 % (11.5-14.5); WHITE BLOOD COUNT 13.4 X10'3 (4.5-11.0)
[2019-04-09 05:47] LABS: ANION GAP 10 (8-16); BLOOD UREA NITROGEN 26 MG/DL (7-18); BUN/CREATININE RATIO 7.8 (5.4-32.0); CALCIUM 8.4 MG/DL (8.5-10.1); CHLORIDE 101 MMOL/L (99-107); CREATININE 3.32 MG/DL (0.60-1.10); GLUCOSE 86 MG/DL (70-104); POTASSIUM 3.9 MMOL/L (3.5-5.1); SODIUM 138 MMOL/L (135-145); TOTAL CARBON DIOXIDE 26.6 MMOL/L (24-32); eGFR 19 ML/MIN
--- NOTE | 2019-04-09 06:33 | NUR ---
Problems reprioritized. Patient report given, questions answered & plan of care reviewed with Leta KENDRICK. Patitient is resting and shows no sign of distress.
--- NOTE | 2019-04-09 06:48 | NUR ---
Patient in room [facility] 341. I have received report from Morelia KENDRICK and had the opportunity to ask questions and assume patient care.
[2019-04-09 07:14] VITALS: BP 78/32
[2019-04-09] MEDS: piperacillin/tazo 3.375gm/50ml 50 ML IV SCH ×3 (08:00→16:00)
[2019-04-09] MEDS: aspirin 81mg tablet.DR PO SCH (08:52)
[2019-04-09] MEDS: midodrine 5mg tablet PO SCH ×2 (08:52→16:00)
[2019-04-09] MEDS: lactobacillus rhamnosus 10,000 MMU CELLS/CAPSULE PO SCH ×2 (08:53→20:12)
[2019-04-09] MEDS: NUT.TX.IMP.RENAL FXN,LAC-REDUC (Nepro) 237 ML VANILLA PO SCH ×3 (08:53→18:00)
[2019-04-09] MEDS: levoTHYROXINE 75mcg tablet PO SCH (08:53)
[2019-04-09] MEDS: folic acid 1mg tablet PO SCH (08:53)
[2019-04-09] MEDS: citalopram 20mg tablet PO SCH (08:53)
[2019-04-09] MEDS: linagliptin 5mg tablet PO SCH (08:53)
[2019-04-09] MEDS: pantoprazole 40mg Tablet.DR PO SCH (08:53)
--- NOTE | 2019-04-09 11:30 | NUR ---
Dr. Rascon with primary nurse discussed that pt is to be changed to DNR with comfort care. Dr. Rascon spoke with patient at bedside about changing his code status to DNR with CC. stated he will make the order changes in the computer.
[2019-04-09 12:07] VITALS: BP 80/35
[2019-04-09] MEDS: HYDROmorphone inj. 0.5 MG/0.5 ML DISP.SYRIN IV PRN (13:31)
[2019-04-09] MEDS: ondansetron/PF 4mg/2ml inj IV PRN (13:38)
[2019-04-09] MEDS ORDERED: LORazepam 2 mg/ml vial IV PRN (14:00)
--- NOTE | 2019-04-09 18:20 | NUR ---
Patient in room [facility] 341. I have received report from Leta KENDRICK and had the opportunity to ask questions and assume patient care.
--- NOTE | 2019-04-09 18:27 | NUR ---
Problems reprioritized. Patient report given, questions answered & plan of care reviewed with Prudence RN.
[2019-04-09] MEDS: Melatonin 3mg tablet PO SCH (20:13)
[2019-04-09] MEDS: donepezil 5mg tablet PO SCH (20:13)
[2019-04-09] MEDS: finasteride 5mg tablet PO SCH (20:13)
[2019-04-09] MEDS: temazepam 15mg capsule PO PRN (20:13)
[2019-04-09] MEDS: insulin glargine (Lantus) pen - multi-dose SQ SCH (21:00)
[2019-04-10] MEDS: piperacillin/tazo 3.375gm/50ml 50 ML IV SCH
[2019-04-10] MEDS: midodrine 5mg tablet PO SCH ×3 (01:30→16:35)
[2019-04-10] MEDS: temazepam 15mg capsule PO PRN ×2 (01:30→21:20)
[2019-04-10] MEDS: loperamide 2mg capsule PO PRN ×3 (04:31→18:32)
--- NOTE | 2019-04-10 06:44 | NUR ---
Problems reprioritized. Patient report given, questions answered & plan of care reviewed with Adele KENDRICK.
--- NOTE | 2019-04-10 06:45 | NUR ---
Patient in room [facility] 341. I have received report from oMrelia KENDRICK and had the opportunity to ask questions and assume patient care.
[2019-04-10 07:00] VITALS: BP 139/78
[2019-04-10] MEDS: levoTHYROXINE 75mcg tablet PO SCH (08:08)
[2019-04-10] MEDS: lactobacillus rhamnosus 10,000 MMU CELLS/CAPSULE PO SCH ×2 (08:09→21:21)
[2019-04-10] MEDS: citalopram 20mg tablet PO SCH (08:09)
[2019-04-10] MEDS: folic acid 1mg tablet PO SCH (08:09)
[2019-04-10] MEDS: aspirin 81mg tablet.DR PO SCH (08:09)
[2019-04-10] MEDS: pantoprazole 40mg Tablet.DR PO SCH (08:09)
[2019-04-10] MEDS: linagliptin 5mg tablet PO SCH (08:10)
[2019-04-10] MEDS: NUT.TX.IMP.RENAL FXN,LAC-REDUC (Nepro) 237 ML VANILLA PO SCH ×3 (08:10→18:13)
[2019-04-10] MEDS: HYDROmorphone inj. 0.5 MG/0.5 ML DISP.SYRIN IV PRN ×2 (11:47→16:35)
[2019-04-10] MEDS: ondansetron/PF 4mg/2ml inj IV PRN (16:35)
--- NOTE | 2019-04-10 18:14 | NUR ---
Problems reprioritized. Patient report given, questions answered & plan of care reviewed with Prudence RN.
--- NOTE | 2019-04-10 18:36 | NUR ---
Patient in room [facility] 341. I have received report from and had the opportunity to ask questions and assume patient care.
--- NOTE | 2019-04-10 18:40 | NUR ---
Patient in room [facility] 341. I have received report from Adele KENDRICK and had the opportunity to ask questions and assume patient care.
[2019-04-10 19:00] VITALS: BP 76/28
[2019-04-10] MEDS: proCHLORperazine 10 MG/2 ml inj IV PRN (20:30)
[2019-04-10] MEDS: insulin glargine (Lantus) pen - multi-dose SQ SCH (21:00)
[2019-04-10] MEDS: Melatonin 3mg tablet PO SCH (21:20)
[2019-04-10] MEDS: donepezil 5mg tablet PO SCH (21:21)
[2019-04-10] MEDS: finasteride 5mg tablet PO SCH (21:21)
[2019-04-11] MEDS: midodrine 5mg tablet PO SCH ×4 (00:30→22:30)
[2019-04-11] MEDS: loperamide 2mg capsule PO PRN (00:30)
[2019-04-11] MEDS: HYDROmorphone inj. 0.5 MG/0.5 ML DISP.SYRIN IV PRN ×4 (02:42→22:30)
--- NOTE | 2019-04-11 06:36 | NUR ---
Patient in room [facility] 341. I have received report from Morelia KENDRICK and had the opportunity to ask questions and assume patient care.
[2019-04-11 07:00] VITALS: BP 70/33
[2019-04-11] MEDS: linagliptin 5mg tablet PO SCH (07:55)
[2019-04-11] MEDS: citalopram 20mg tablet PO SCH (07:55)
[2019-04-11] MEDS: lactobacillus rhamnosus 10,000 MMU CELLS/CAPSULE PO SCH ×2 (07:55→22:31)
[2019-04-11] MEDS: NUT.TX.IMP.RENAL FXN,LAC-REDUC (Nepro) 237 ML VANILLA PO SCH ×3 (07:55→18:00)
[2019-04-11] MEDS: levoTHYROXINE 75mcg tablet PO SCH (07:55)
[2019-04-11] MEDS: folic acid 1mg tablet PO SCH (07:55)
[2019-04-11] MEDS: pantoprazole 40mg Tablet.DR PO SCH (07:56)
[2019-04-11] MEDS: aspirin 81mg tablet.DR PO SCH (07:56)
[2019-04-11] MEDS: mag hydrox/Alum hydrox/simeth 30ml oral suspension PO PRN (08:50)
[2019-04-11] MEDS: ondansetron/PF 4mg/2ml inj IV PRN (08:52)
[2019-04-11] MEDS: proCHLORperazine 10 MG/2 ml inj IV PRN (13:34)
[2019-04-11] MEDS: morphine 10mg/0.5ml (conc. morphine) oral syringe PO PRN (14:32)
--- NOTE | 2019-04-11 14:34 | NUR ---
Patient still complaining of pain despite of Dilaudid that was administered less than 1 hr ago. Patient and family requested another pain medicine for comfort/pain relief. Roxanol given as indicated
--- NOTE | 2019-04-11 14:36 | NUR ---
Patient has been having loose stools, offered Imodium- patient refused
[2019-04-11] MEDS: morphine 10mg/ml inj. IV PRN (14:58)
--- NOTE | 2019-04-11 15:09 | NUR ---
Patient stated he is still in pain 02/03, patient requested for more pain medicine. Morphine 10mg IV given per patient request. Family at bedside
--- NOTE | 2019-04-11 15:29 | NUR ---
Patient is comfortable at this time, family at bedside
[2019-04-11 18:00] VITALS: BP 82/23
--- NOTE | 2019-04-11 18:07 | NUR ---
Patient in room [facility] 341. I have received report from AROLDO Angulo and had the opportunity to ask questions and assume patient care.
--- NOTE | 2019-04-11 18:27 | NUR ---
Problems reprioritized. Patient report given, questions answered & plan of care reviewed with Zia KENDRICK.
[2019-04-11] MEDS: insulin glargine (Lantus) pen - multi-dose SQ SCH (21:00)
[2019-04-11] MEDS: finasteride 5mg tablet PO SCH (22:30)
[2019-04-11] MEDS: Melatonin 3mg tablet PO SCH (22:31)
[2019-04-11] MEDS: donepezil 5mg tablet PO SCH (22:31)
[2019-04-12] MEDS: morphine 10mg/0.5ml (conc. morphine) oral syringe PO PRN ×2 (02:05→19:26)
[2019-04-12] MEDS: loperamide 2mg capsule PO PRN ×3 (02:08→20:13)
[2019-04-12] MEDS: HYDROmorphone inj. 0.5 MG/0.5 ML DISP.SYRIN IV PRN ×3 (03:09→17:42)
[2019-04-12] MEDS: morphine 10mg/ml inj. IV PRN ×4 (04:00→20:49)
[2019-04-12] MEDS: temazepam 15mg capsule PO PRN ×2 (05:58→20:48)
--- NOTE | 2019-04-12 06:31 | NUR ---
Problems reprioritized. Patient report given, questions answered & plan of care reviewed with AROLDO Weems.
[2019-04-12 08:00] VITALS: BP 87/16
[2019-04-12] MEDS: citalopram 20mg tablet PO SCH (08:00)
[2019-04-12] MEDS: levoTHYROXINE 75mcg tablet PO SCH (08:00)
[2019-04-12] MEDS: midodrine 5mg tablet PO SCH ×3 (08:00→23:02)
[2019-04-12] MEDS: lactobacillus rhamnosus 10,000 MMU CELLS/CAPSULE PO SCH ×2 (08:00→20:00)
[2019-04-12] MEDS: aspirin 81mg tablet.DR PO SCH (08:00)
[2019-04-12] MEDS: folic acid 1mg tablet PO SCH (08:00)
[2019-04-12] MEDS: NUT.TX.IMP.RENAL FXN,LAC-REDUC (Nepro) 237 ML VANILLA PO SCH ×3 (08:00→18:00)
[2019-04-12] MEDS: pantoprazole 40mg Tablet.DR PO SCH (08:00)
[2019-04-12] MEDS: linagliptin 5mg tablet PO SCH (08:00)
--- NOTE | 2019-04-12 12:21 | NUR ---
Reassessment: Patient is DNR with comfort care. Eating 25-49% regular diet. Patient able to have food cravings met per MD note. Pending removal of TDC catheter. Will continue to follow per protocol. Rec: 1. continue regular diet 2. wt per rx Addendum: 04/12/19 at [address] Amended: Links added.
[2019-04-12] MEDS ORDERED: albumin (human) 25% 100 ML IV solution IV ONE (14:30)
[2019-04-12] MEDS: ondansetron/PF 4mg/2ml inj IV PRN (15:53)
[2019-04-12 18:00] VITALS: BP 57/21
[2019-04-12] MEDS: Melatonin 3mg tablet PO SCH (20:48)
[2019-04-12] MEDS: proCHLORperazine 10 MG/2 ml inj IV PRN (20:54)
[2019-04-12] MEDS: insulin glargine (Lantus) pen - multi-dose SQ SCH (21:00)
[2019-04-12] MEDS: finasteride 5mg tablet PO SCH (21:00)
[2019-04-12] MEDS: donepezil 5mg tablet PO SCH (21:00)
--- NOTE | 2019-04-12 22:10 | NUR ---
personal hygiene provided to pt and linen change. codition changed noted, pt not responding, no purposful movement, respirations more shallow rate of 10. Notified family of condition change, says they will be coming in
--- NOTE | 2019-04-13 01:57 | NUR ---
RN IS TO DOCUMENT YES TO ALL APPLICABLE AREAS Pronouncement of : 1. Time Physician Notified: 112 2. Date of : 04/13/19 3. Time of :24 4. DNR/Withdraw life support documented: 5. Monitor strip has been placed on chart: 6. Assessment process is of one-minute duration and includes following criteria: a) Patient is unresponsive to all stimuli: Yes b) Pupils fixed and non-reactive: Yes c) Auscultation of precordium reveals absence of heart tones: yes d) Auscultation of lungs reveals absence of breath sounds: yes e) Absence of blood pressure / all vital signs: yes f) QRS complexes are not present on monitor / EKG strip: yes g) Pacer spikes without capture: yes 4. Comments: Addendum: 04/13/19 at 0158 by Lonnie Jacinto RN RN IS TO DOCUMENT YES TO ALL APPLICABLE AREAS Pronouncement of : 1. Time Physician Notified: 112 2. Date of : 04/13/19 3. Time of :24 4. DNR/Withdraw life support documented: yes 5. Monitor strip has been placed on chart: yes 6. Assessment process is of one-minute duration and includes following criteria: a) Patient is unresponsive to all stimuli: Yes b) Pupils fixed and non-reactive: Yes c) Auscultation of precordium reveals absence of heart tones: yes d) Auscultation of lungs reveals absence of breath sounds: yes e) Absence of blood pressure / all vital signs: yes f) QRS complexes are not present on monitor / EKG strip: yes g) Pacer spikes without capture: yes 4. Comments:
--- NOTE | 2019-04-13 02:39 | NUR ---
pt picked up by Leatha Chowdhury and Abdulkadir Olivia
== END 2019-04-13 00:25 | disposition expired | DRG 919 ==
LOC: ER 11:27 → SUR 3N 18:51
PROVIDERS: ADMIT Internal Medicine Critical Care Medicine; ATTEND Internal Medicine Critical Care Medicine
PROC: 5A1D70Z Performance of Urinary Filtration, Intermittent, Less than 6 Hours Per Day (ICD-10-PCS; 2019-03-31)
PROC: 30233N1 Transfusion of Nonautologous Red Blood Cells into Peripheral Vein, Percutaneous Approach (ICD-10-PCS; 2019-04-02)
PROC: 5A1D70Z Performance of Urinary Filtration, Intermittent, Less than 6 Hours Per Day (ICD-10-PCS; 2019-04-02)
PROC: 0W9G3ZZ Drainage of Peritoneal Cavity, Percutaneous Approach (ICD-10-PCS; 2019-04-05)
PROC: 5A1D70Z Performance of Urinary Filtration, Intermittent, Less than 6 Hours Per Day (ICD-10-PCS; 2019-04-06)
PROC: 5A1D70Z Performance of Urinary Filtration, Intermittent, Less than 6 Hours Per Day (ICD-10-PCS; 2019-04-08)
PROC: 0FP4X0Z Removal of Drainage Device from Gallbladder, External Approach (ICD-10-PCS; principal; 2019-04-11)
DX: T85.628A Displacement of other specified internal prosthetic devices, implants and grafts, initial encounter (principal); N18.6 End stage renal disease; N39.0 Urinary tract infection, site not specified; R18.8 Other ascites; D75.81 Myelofibrosis; D46.9 Myelodysplastic syndrome, unspecified; K80.20 Calculus of gallbladder without cholecystitis without obstruction; R31.9 Hematuria, unspecified; I44.7 Left bundle-branch block, unspecified; D63.8 Anemia in other chronic diseases classified elsewhere; I48.91 Unspecified atrial fibrillation; I50.9 Heart failure, unspecified; K74.60 Unspecified cirrhosis of liver; Z51.5 Encounter for palliative care; Z87.440 Personal history of urinary (tract) infections; I25.2 Old myocardial infarction; Z99.2 Dependence on renal dialysis
CPT/HCPCS: 36415; 49083; 74176; 76937; 78226; 80048; 80053; 81001; 82948; 83605; 83690; 83735; 84100; 85025; 85610; 86870; 86885; 86900; 86901; 86902; 86905; 86922; 86945; 87040; 87081; 87088; 87324; 87449; 93005; 96361; 96365; 96366; 96375; 97110; 97116; 97162; 97530; 99285; A9537; C9113; G0257; G0378; J0696; J0780; J1170; J1644; J1815; J2270; J2405; J2543; J2805; J3490; P9016; P9047; Q4081